=== PATIENT | male | born 1965 | race Caucasian/White ===

== ENCOUNTER 2017-06-06 08:26 | Inpatient (IN) | payer OTHER ==
[2017-06-06 09:09] VITALS: BMI 21.4
--- NOTE | 2017-06-06 09:15 | HP ---
COWS - Scale Resting Pulse: 0= [place] 80 or Below Sweatin=Flushed/Facial Moisture Restless Observation: 1= Difficult to Sit Still Pupil Size: 0= Normal to Room Light Bone or Joint Aches: 2= Severe Diffuse Aches Runny Nose/ Eye Tearin= Runny Nose/Eyes GI Upset > 30mins: 2= Nausea/Diarrhea Tremor Observation: 2= Slight Tremor Visible Yawning Observation: 1= 1-2x During Session Anxiety or Irritability: 2=Irritable/Anxious Goose Flesh Skin: 0=Smooth Skin COWS Score: 14 CIWA Score - CIWA Score Nausea/Vomitin-Mild Nausea/No Vomiting Muscle Tremors: 4-Moderate,w/Arms Extend Anxiety: 3 Agitation: 4-Moderately Restless Paroxysmal Sweats: 3 Orientation: 0-Oriented Tacttile Disturbances: 0-None Auditory Disturbances: 0-None Visual Disturbances: 0-None Headache: 0-None Present CIWA-Ar Total Score: 15 Admission ROS [facility] - HPI Chief Complaint: I was here before and i know its a good detox and need the help. Allergies/Adverse Reactions: Allergies Allergy/AdvReac Type Severity Reaction Status Date / Time No Known Allergies Allergy Verified 06/06/17 09:19 History of Present Illness: Pt is a 51yr old male with a history of alcohol and heroin dependence seeking detox for treatment. Pt states last detox was with [facility] detox in 2014. Exam Limitations: No Limitations - Ebola screening Have you traveled outside of the country in the last 21 days: No Have you had contact with anyone from an Ebola affected area: No Have you been sick,other than usual withdrawal symptoms: No Do you have a fever: No - Review of Systems Constitutional: Chills, Diaphoresis, Loss of Appetite, Night Sweats, Changes in sleep EENT: reports: Tearing Respiratory: reports: No Symptoms reported Cardiac: reports: No Symptoms Reported GI: reports: Nausea, Poor Fluid Intake : reports: No Symptoms Reported Musculoskeletal: reports: Back Pain Integumentary: reports: Flushing, Sweating Neuro: reports: Tingling, Tremors Endocrine: reports: Excessive Sweating, Flushing Hematology: reports: No Symptoms Reported Psychiatric: reports: Judgement Intact, Mood/Affect Appropiate, Orientated x3, Agitated, Anxious Other Systems: Reviewed and Negative Patient History - Patient Medical History Hx Anemia: No Hx Asthma: No Hx Chronic Obstructive Pulmonary Disease (COPD): No Hx Cancer: No Hx Cardiac Disorders: No Hx Congestive Heart Failure: No Hx Hypertension: No Hx Hypercholesterolemia: No Hx Pacemaker: No HX Cerebrovascular Accident: No Hx Seizures: No Hx Dementia: No Hx Diabetes: No Hx Gastrointestinal Disorders: No Hx Liver Disease: No Hx Genitourinary Disorders: No Hx Sexually Transmitted Disorders: No Hx Renal Disease (ESRD): No Hx Thyroid Disease: No Hx Human Immunodeficiency Virus (HIV): No (negative ) Hx Hepatitis C: No Hx Depression: Yes (anxiety,insomnia) Hx Suicide Attempt: No (denies) Hx Bipolar Disorder: No Hx Schizophrenia: No - Patient Surgical History Past Surgical History: No Hx Neurologic Surgery: No Hx Cataract Extraction: No Hx Cardiac Surgery: No Hx Lung Surgery: No Hx Breast Surgery: No Hx Breast Biopsy: No Hx Abdominal Surgery: Yes (left inguinal hernia repair age 7) Hx Appendectomy: No Hx Cholecystectomy: No Hx Genitourinary Surgery: No Hx Section: No Hx Orthopedic Surgery: No Anesthesia Reaction: No - PPD History Previous Implant?: Yes Documented Results: Negative w/o proof PPD to be Administered?: Yes - Reproductive History Patient is a Female of Child Bearing Age (11 -55 yrs old): No - Smoking Cessation Smoking history: Current every day smoker Have you smoked in the past 12 months: Yes Aproximately how many cigarettes per day: 10 Cigars Per Day: 0 Hx Chewing Tobacco Use: No Initiated information on smoking cessation: Yes 'Breaking Loose' booklet given: 06/06/17 - Substance & Tx. History Hx Alcohol Use: Yes Hx Substance Use: Yes Substance Use Type: Alcohol, Heroin Hx Substance Use Treatment: Yes ([facility] 2014) - Substances Abused Alcohol Route: Oral Frequency: Daily Amount used: one pint vodka. 5-6 beer of 6 pack, 01/18oz beer Age of first use: 18 Date of Last Use: 06/06/17 Heroin Route: Inhalation Frequency: Daily Amount used: 7 bags Age of first use: 34 Date of Last Use: 06/06/17 Cocaine Route: Smoking Frequency: 3-6 times per week Amount used: 4-5 dimes Age of first use: 23 Date of Last Use: 06/06/17 Marijuana/Hashish Route: Smoking Frequency: 1-3 times last 30 days Amount used: couple of hits Age of first use: 16 Date of Last Use: 06/04/17 Family Disease History - Family Disease History Family Disease History: Other: Father (parkinsons dx), Mother (AIDS ) Admission Physical Exam [facility] - Vital Signs Vital Signs: Vital Signs - 24 hr 06/06/17 09:06 Temperature 97.1 F L Pulse Rate 72 Respiratory 16 Rate Blood Pressure 97/61 - Physical General Appearance: Yes: Appropriately Dressed, Moderate Distress, Thin, Tremorous, Irritable, Sweating, Anxious HEENTM: Yes: Hearing grossly Normal, Nasal Congestion Respiratory: Yes: Normal Breath Sounds, Rhonchi, Wheezing Neck: Yes: No masses,lesions,Nodules Breast: Yes: Within Normal Limits Cardiology: Yes: Regular Rhythm, Regular Rate, S1, S2 Abdominal: Yes: Normal Bowel Sounds, Non Tender, Soft Genitourinary: Yes: Within Normal Limits Back: Yes: Normal Inspection Musculoskeletal: Yes: Back pain Extremities: Yes: Non-Tender, Tremors Neurological: Yes: Fully Oriented, Alert, Normal Response Integumentary: Yes: Normal Color, Diaphoresis, Other (cyst to right elbow) Lymphatic: Yes: Within Normal Limits - Diagnostic (1) Cannabis dependence Current Visit: Yes Status: Chronic (2) Nicotine dependence Current Visit: Yes Status: Chronic Qualifiers: Nicotine product type: cigarettes Substance use status: uncomplicated Qualified Code(s): F17.210 - Nicotine dependence, cigarettes, uncomplicated (3) Tinea pedis Current Visit: Yes Status: Acute Qualifiers: Laterality: bilateral Qualified Code(s): B35.3 - Tinea pedis (4) Weight decreased Current Visit: Yes Status: Acute (5) Alcohol dependence with uncomplicated withdrawal Current Visit: Yes Status: Chronic (6) Opioid dependence with withdrawal Current Visit: Yes Status: Chronic Cleared for Admission [facility] - Detox or Rehab [facility] Level of Care: Medically Managed Detox Regimen/Protocol: Methadone/Librium [facility] Breath Alcohol Content Breath Alcohol Content: 0 Urine Drug Screen - Results Drug Screen Negative: No Urine Drug Screen Results: THC-Marijuana, DANNIE-Cocaine, OPI-Opiates, BZO- Benzodiazepines, MTD-Methadone
[2017-06-06] MEDS ORDERED: diphenhydrAMINE HCL 50 MG CAPSULE PO PRN (09:45)
[2017-06-06] MEDS ORDERED: NICOTINE POLACRILEX 2 MG GUM BUC PRN (09:45)
[2017-06-06] MEDS ORDERED: MENTHOL/PHENOL 1 EACH UD MM PRN (09:45)
[2017-06-06] MEDS ORDERED: guaiFENesin/D-METHORPHAN HB 10 ML UNIT-DOSE CUPS PO PRN (09:45)
[2017-06-06] MEDS ORDERED: LOPERAMIDE HCL 2 MG CAPSULE PO PRN (09:45)
[2017-06-06] MEDS ORDERED: IBUPROFEN 400 MG TABLET (FP) PO PRN (09:45)
[2017-06-06] MEDS ORDERED: MAG HYDROX/AL HYDROX/SIMETH 30 ML UNIT-DOSE CUP PO PRN (09:45)
[2017-06-06] MEDS ORDERED: ACETAMINOPHEN 325 MG TABLET (FP) PO PRN (09:45)
[2017-06-06] MEDS ORDERED: MAGNESIUM CITRATE 300 ML BOTTLE PO PRN (09:45)
[2017-06-06] MEDS ORDERED: MAGNESIUM HYDROX 2400MG/30ML ORAL SUSPENSION 30 ML CUP PO PRN (09:45)
[2017-06-06] MEDS ORDERED: hydrOXYzine PAMOATE 50 MG CAPSULE (FP) PO PRN (09:45)
[2017-06-06] MEDS ORDERED: chlordiazePOXIDE HCL 25 MG CAPSULE PO PRN (09:45)
[2017-06-06] MEDS ORDERED: P-EPHED 60MG/TRIPROLIDI 2.5MG TABLET PO PRN (09:45)
[2017-06-06] MEDS ORDERED: ALBUTEROL SO4 2.5/IPRATROPIUM 0.5 INH SOL 3 ML VIAL.NEB. NEB PRN (09:47)
[2017-06-06] MEDS ORDERED: chlordiazePOXIDE HCL 25 MG CAPSULE PO ONE (10:18)
[2017-06-06] MEDS ORDERED: ALBUTEROL SO4 2.5/IPRATROPIUM 0.5 INH SOL 3 ML VIAL.NEB. NEB ONE (10:19)
[2017-06-06] MEDS ORDERED: METHADONE HCL 10 MG TABLET (FOR DETOX USE ONLY) PO ONE ×2 (10:20→23:00)
[2017-06-06] MEDS: NICOTINE 21 MG/24 HOURS TOPICAL PATCH TD SCH (12:47)
[2017-06-06] MEDS: PRENATAL VITAMINS W/ FOLIC ACID TABLET (FP) PO SCH (12:48)
[2017-06-06] MEDS: chlordiazePOXIDE HCL 25 MG CAPSULE PO SCH ×3 (12:49→22:11)
--- NOTE | 2017-06-06 16:20 | CONSULT ---
[facility] Psychiatric Consult - Data Date of interview: 06/06/17 Admission source: [facility] Identifying data: Readmission to [facility] for this 51 y/o male seeking detoxification treatment for heroin,alcohol,cannabis and crack (cocaine ) dependence.Patient is single without children,homeless,currrently unemployed and deprived of any means of suppport. Substance Abuse History: Patient admits to abusing heroin (7 bags/day - since age 35 - last use on 06/06/17),crack (onset of abuse at age 23 - spends 20-60 dollars/day - last use on 06/05/17),alcohol (consumes 1-2 pints of vodka daily + 2 beers/day - onset of abuse in his early 20's - last use on 06/06/17),cannabis ( since age 18 - use 2/3 times in past two weeks - last use on 06/05/17).Smokes a pack of cigarettes daily.Presents with a history of multiple detox/rehab admissions to various facilities. Medical History: Patient endorses good general health.Past history of left inguinal herniorraphy. Psychiatric History: Patient denies history of psychiatric hospitalizations.Used to be on klonopin 2 mg po bid for anxiety.Was diagnosed and followed at a community clinic until the venue " was shot down for fraud " as per patient.Has been off psychotropic medications for past 18 months (self- report).Mr Chaudhary denies history of suicide attempts. Physical/Sexual Abuse/Trauma History: Patient denies. Additional Comment: Urine Drug Screen Results: positive for marijuana,cocaine, opiates,benzodiazepines and methadone. Mental Status Exam - Mental Status Exam Alert and Oriented to: Time, Place, Person Cognitive Function: Good Patient Appearance: Unkempt, Disheveled Mood: Withdrawn, Anxious Affect: Mood Congruent Patient Behavior: Fatigued, Cooperative Speech Pattern: Clear, Appropriate Voice Loudness: Normal Thought Process: Goal Oriented Thought Disorder: Not Present Hallucinations: Denies Suicidal Ideation: Denies Homicidal Ideation: Denies Insight/Judgement: Poor Sleep: Poorly, Difficulty falling asleep (requests zolpidem) Appetite: Good Muscle strength/Tone: Normal Gait/Station: Normal Psychiatric Findings - Problem List ([place] 1, 2,3) (1) Alcohol dependence with uncomplicated withdrawal Current Visit: Yes Status: Acute (2) Cannabis dependence Current Visit: Yes Status: Acute (3) Opioid dependence with withdrawal Current Visit: Yes Status: Acute (4) Cocaine dependence Current Visit: Yes Status: Acute (5) Nicotine dependence Current Visit: Yes Status: Acute Qualifiers: Nicotine product type: cigarettes Substance use status: uncomplicated Qualified Code(s): F17.210 - Nicotine dependence, cigarettes, uncomplicated (6) Substance induced mood disorder Current Visit: Yes Status: Acute (7) Insomnia Current Visit: Yes Status: Acute - Initial Treatment Plan Initial Treatment Plan: Psychoeducation initiated in this session.Detoxification in progress.[facility] report is appreciated.Ambien 10 mg po hs.Ordered.Patient is made aware of the potential for parasomnias.He expresses his agreement to this careplan.Observation.
--- NOTE | 2017-06-06 17:16 | EKG ---
Test Reason : Blood Pressure : / mmHG Vent. Rate : 062 BPM Atrial Rate : 062 BPM P-R Int : 110 ms QRS Dur : 086 ms QT Int : 426 ms P-R-T Axes : 042 078 041 degrees QTc Int : 432 ms SINUS RHYTHM WITH SHORT FL RSR' IN V2 NONSPECIFICST-T ABNORMALITIES NO PREVIOUS ECGS AVAILABLE Confirmed by STACEY SEPULVEDA MD ([id number]) on 06/06/2017 5:16:00 PM Referred By: Confirmed By:STACEY SEPULVEDA MD
[2017-06-06] MEDS: THIAMINE HCL 100 MG TABLET (FP) PO SCH (22:11)
[2017-06-06] MEDS: ZOLPIDEM TARTRATE 10 MG TABLET (PARK CARE ONLY) PO PRN (22:12)
[2017-06-06 23:01] LABS: URINE APPEARANCE CLEAR; URINE BILIRUBIN NEGATIVE (NEGATIVE); URINE BLOOD NEGATIVE (NEGATIVE); URINE COLOR STRAW; URINE GLUCOSE (UA) NEGATIVE (NEGATIVE); URINE KETONE NEGATIVE (NEGATIVE); URINE LEUK ESTERASE NEGATIVE (NEGATIVE); URINE NITRITE NEGATIVE (NEGATIVE); URINE PROTEIN NEGATIVE (NEGATIVE); URINE UROBILINOGEN NEGATIVE E.U./dl (0.2-1.0)
[2017-06-07] MEDS: chlordiazePOXIDE HCL 25 MG CAPSULE PO SCH ×4 (05:55→22:07)
[2017-06-07] MEDS ORDERED: METHADONE HCL 10 MG TABLET (FOR DETOX USE ONLY) PO SCH (10:00)
[2017-06-07] MEDS: PRENATAL VITAMINS W/ FOLIC ACID TABLET (FP) PO SCH (10:05)
[2017-06-07] MEDS: NICOTINE 21 MG/24 HOURS TOPICAL PATCH TD SCH (10:06)
--- NOTE | 2017-06-07 11:03 | PN ---
[facility] CIWA - CIWA Score Nausea/Vomitin-Mild Nausea/No Vomiting Muscle Tremors: 4-Moderate,w/Arms Extend Anxiety: 3 Agitation: 2 Paroxysmal Sweats: 4-Forehead w/Sweat Beads Orientation: 0-Oriented Tacttile Disturbances: 0-None Auditory Disturbances: 1-Very Mild Visual Disturbances: 2-Mild Sensitivity Headache: 0-None Present CIWA-Ar Total Score: 17 S COWS - Scale Resting Pulse: 0= [place] 80 or Below Sweatin=Flushed/Facial Moisture Restless Observation: 1= Difficult to Sit Still Pupil Size: 0= Normal to Room Light Bone or Joint Aches: 1= Mild Discomfort Runny Nose/ Eye Tearin= Runny Nose/Eyes GI Upset > 30mins: 1= Stomach Cramp Tremor Observation of Outstretched Hands: 2= Slight Tremor Visible Yawning Observation: 1= 1-2x During Session Anxiety or Irritability: 2=Irritable/Anxious Goose Flesh Skin: 0=Smooth Skin COWS Score: 12 [facility] Progress Note (SOAP) Subjective: Tremors, Sweating, Hot/Cold sensations, Interrupted sleep. Objective: PT. A & 0 X 3, OBSERVED AMBULATING ON UNIT. NO ACUTE DISTRESS. 06/07/17 11:01 Vital Signs Temperature 96.7 F L 06/07/17 09:07 Pulse Rate 62 06/07/17 09:07 Respiratory Rate 18 06/07/17 09:07 Blood Pressure 118/79 06/07/17 09:07 O2 Sat by Pulse Oximetry (%) Laboratory Tests 06/06/17 16:52 Urine Color Straw Urine Appearance Clear Urine pH 6.0 Ur Specific [place] <= 1.005 Urine Protein Negative Urine Glucose (UA) Negative Urine Ketones Negative Urine Blood Negative Urine Nitrite Negative Urine Bilirubin Negative Urine Urobilinogen Negative Ur Leukocyte Esterase Negative UA RESULTS NOTED. OTHER ADMISSION LAB RESULTS PENDING. Assessment: 06/07/17 11:03 WITHDRAWAL SYMPTOMS. Plan: CONTINUE DETOX.
[2017-06-07 14:41] LABS: MCH 34.6 pg (25.7-33.7); MCHC 33.4 g/dl (32.0-35.9); MEAN CELL VOLUME 103.5 fl (80-96); MEAN PLT VOLUME 8.4 fl (7.5-11.1); PLATELET COUNT 302 K/MM3 (134-434); WHITE BLOOD COUNT 8.7 K/mm3 (4.0-10.0)
[2017-06-07 14:59] LABS: SGOT/AST 17 U/L (15-37); SGPT/ALT 14 U/L (12-78)
[2017-06-07 15:08] LABS: ALBUMIN 3.4 g/dl (3.4-5.0); ALK PHOS 73 U/L (45-117); ANION GAP 7 (8-16); BILIRUBIN,TOTAL 0.1 mg/dL (0.2-1.0); CALCIUM 9.2 mg/dL (8.5-10.1); CO2 29 mmol/L (21-32); CREATININE 0.8 mg/dL (0.7-1.3); GLUCOSE,RANDOM 71 mg/dL (74-106); TOT PROT 6.6 g/dl (6.4-8.2)
[2017-06-07] MEDS: ZOLPIDEM TARTRATE 10 MG TABLET (PARK CARE ONLY) PO PRN (22:07)
[2017-06-07] MEDS: THIAMINE HCL 100 MG TABLET (FP) PO SCH (22:07)
[2017-06-08] MEDS: chlordiazePOXIDE HCL 25 MG CAPSULE PO SCH (06:00)
[2017-06-08] MEDS: PRENATAL VITAMINS W/ FOLIC ACID TABLET (FP) PO SCH (10:20)
[2017-06-08] MEDS: chlordiazePOXIDE 5 MG CAPSULE PO SCH ×3 (10:21→22:08)
[2017-06-08] MEDS: METHADONE HCL 5 MG TABLET (FOR DETOX USE ONLY) PO SCH (10:21)
[2017-06-08] MEDS: NICOTINE 21 MG/24 HOURS TOPICAL PATCH TD SCH (10:21)
--- NOTE | 2017-06-08 11:28 | PN ---
[facility] CIWA - CIWA Score Nausea/Vomitin-Mild Nausea/No Vomiting Muscle Tremors: 4-Moderate,w/Arms Extend Anxiety: 4-Mod. Anxious/Guarded Agitation: 2 Paroxysmal Sweats: 3 Orientation: 0-Oriented Tacttile Disturbances: 2-Mild Itch/Numbness/Burn Auditory Disturbances: 0-None Visual Disturbances: 0-None Headache: 0-None Present CIWA-Ar Total Score: 16 S COWS - Scale Resting Pulse: 0= [place] 80 or Below Sweatin=Flushed/Facial Moisture Restless Observation: 1= Difficult to Sit Still Pupil Size: 0= Normal to Room Light Bone or Joint Aches: 2= Severe Diffuse Aches Runny Nose/ Eye Tearin= Nasal Congestion GI Upset > 30mins: 1= Stomach Cramp Tremor Observation of Outstretched Hands: 2= Slight Tremor Visible Yawning Observation: 1= 1-2x During Session Anxiety or Irritability: 2=Irritable/Anxious Goose Flesh Skin: 0=Smooth Skin COWS Score: 12 S Progress Note (SOAP) Subjective: Sweating, Anxious, Tremors. Objective: PT. A & O X 3, OBSERVED AMBULATING ON UNIT. NO ACUTE DISTRESS. 06/08/17 11:25 Vital Signs Temperature 96.7 F L 06/08/17 09:41 Pulse Rate 66 06/08/17 09:41 Respiratory Rate 16 06/08/17 09:41 Blood Pressure 102/72 06/08/17 09:41 O2 Sat by Pulse Oximetry (%) Laboratory Tests 06/06/17 06/07/17 06/07/17 16:52 10:45 10:45 WBC 8.7 RBC 4.00 Hgb 13.8 Hct 41.4 MCV 103.5 H MCH 34.6 H MCHC 33.4 RDW 13.0 Plt Count 302 MPV 8.4 Sodium 142 Potassium 4.3 Chloride 106 Carbon Dioxide 29 Anion Gap 7 L BUN 15 Creatinine 0.8 Creat Clearance w eGFR > 60 Random Glucose 71 L D Calcium 9.2 Total Bilirubin 0.1 L D AST 17 ALT 14 Alkaline Phosphatase 73 Total Protein 6.6 Albumin 3.4 Urine Color Straw Urine Appearance Clear Urine pH 6.0 Ur Specific [place] <= 1.005 Urine Protein Negative Urine Glucose (UA) Negative Urine Ketones Negative Urine Blood Negative Urine Nitrite Negative Urine Bilirubin Negative Urine Urobilinogen Negative Ur Leukocyte Esterase Negative RPR Titer 06/07/17 10:45 WBC RBC Hgb Hct MCV MCH MCHC RDW Plt Count MPV Sodium Potassium Chloride Carbon Dioxide Anion Gap BUN Creatinine Creat Clearance w eGFR Random Glucose Calcium Total Bilirubin AST ALT Alkaline Phosphatase Total Protein Albumin Urine Color Urine Appearance Urine pH Ur Specific [place] Urine Protein Urine Glucose (UA) Urine Ketones Urine Blood Urine Nitrite Urine Bilirubin Urine Urobilinogen Ur Leukocyte Esterase RPR Titer Nonreactive LABS NOTED. Assessment: 06/08/17 11:26 WITHDRAWAL SYMPTOMS. Plan: CONTINUE DETOX. SICKLE CELL SCREEN ORDERED.
[2017-06-08] MEDS: THIAMINE HCL 100 MG TABLET (FP) PO SCH (22:08)
[2017-06-08] MEDS: ZOLPIDEM TARTRATE 10 MG TABLET (PARK CARE ONLY) PO PRN (22:09)
[2017-06-09] MEDS: chlordiazePOXIDE 5 MG CAPSULE PO SCH (06:04)
[2017-06-09] MEDS: PRENATAL VITAMINS W/ FOLIC ACID TABLET (FP) PO SCH (10:19)
[2017-06-09] MEDS: METHADONE HCL 5 MG TABLET (FOR DETOX USE ONLY) PO SCH (10:19)
[2017-06-09] MEDS: chlordiazePOXIDE HCL 10 MG CAPSULE PO SCH ×3 (10:19→22:13)
[2017-06-09] MEDS: NICOTINE 21 MG/24 HOURS TOPICAL PATCH TD SCH (10:20)
--- NOTE | 2017-06-09 10:45 | PN ---
[facility] Progress Note (SOAP) Subjective: Tremors, Sweating, Hot / Cold Sensations, Anxious. Objective: PT. A & O X 3, OBSERVED AMBULATING ON UNIT. NO ACUTE DISTRESS. 06/09/17 10:40 Vital Signs Temperature 96.9 F L 06/09/17 10:24 Pulse Rate 65 06/09/17 10:24 Respiratory Rate 17 06/09/17 10:24 Blood Pressure 117/84 06/09/17 10:24 O2 Sat by Pulse Oximetry (%) Laboratory Tests 06/06/17 06/07/17 06/07/17 16:52 10:45 10:45 WBC 8.7 RBC 4.00 Hgb 13.8 Hct 41.4 MCV 103.5 H MCH 34.6 H MCHC 33.4 RDW 13.0 Plt Count 302 MPV 8.4 Sickle Cell Screen Sodium 142 Potassium 4.3 Chloride 106 Carbon Dioxide 29 Anion Gap 7 L BUN 15 Creatinine 0.8 Creat Clearance w eGFR > 60 Random Glucose 71 L D Calcium 9.2 Total Bilirubin 0.1 L D AST 17 ALT 14 Alkaline Phosphatase 73 Total Protein 6.6 Albumin 3.4 Urine Color Straw Urine Appearance Clear Urine pH 6.0 Ur Specific [place] <= 1.005 Urine Protein Negative Urine Glucose (UA) Negative Urine Ketones Negative Urine Blood Negative Urine Nitrite Negative Urine Bilirubin Negative Urine Urobilinogen Negative Ur Leukocyte Esterase Negative RPR Titer 06/07/17 06/08/17 10:45 12:10 WBC RBC Hgb Hct MCV MCH MCHC RDW Plt Count MPV Sickle Cell Screen Negative Sodium Potassium Chloride Carbon Dioxide Anion Gap BUN Creatinine Creat Clearance w eGFR Random Glucose Calcium Total Bilirubin AST ALT Alkaline Phosphatase Total Protein Albumin Urine Color Urine Appearance Urine pH Ur Specific [place] Urine Protein Urine Glucose (UA) Urine Ketones Urine Blood Urine Nitrite Urine Bilirubin Urine Urobilinogen Ur Leukocyte Esterase RPR Titer Nonreactive LABS NOTED. RESULT OF SICKLE CELL SCREEN NOTED. 06/09/17 10:42 06/09/17 10:45 Assessment: 06/09/17 10:42 WITHDRAWAL SYMPTOMS. Plan: CONTINUE DETOX.
[2017-06-09] MEDS: THIAMINE HCL 100 MG TABLET (FP) PO SCH (22:13)
[2017-06-09] MEDS: ZOLPIDEM TARTRATE 10 MG TABLET (PARK CARE ONLY) PO PRN (22:13)
[2017-06-10] MEDS: chlordiazePOXIDE HCL 10 MG CAPSULE PO SCH (05:43)
[2017-06-10] MEDS ORDERED: METHADONE HCL 10 MG TABLET (FOR DETOX USE ONLY) PO SCH (10:00)
[2017-06-10] MEDS: PRENATAL VITAMINS W/ FOLIC ACID TABLET (FP) PO SCH (10:39)
[2017-06-10] MEDS: NICOTINE 21 MG/24 HOURS TOPICAL PATCH TD SCH (10:39)
--- NOTE | 2017-06-10 12:24 | PN ---
[facility] Progress Note (SOAP) Subjective: Sweating, Interrupted Sleep. Objective: PT. A & O X 3, OBSERVED AMBULATING ON UNIT. NO ACUTE DISTRESS. 06/10/17 12:22 Vital Signs Temperature 95.9 F L 06/10/17 09:12 Pulse Rate 67 06/10/17 09:12 Respiratory Rate 18 06/10/17 09:12 Blood Pressure 103/64 06/10/17 09:12 O2 Sat by Pulse Oximetry (%) Laboratory Tests 06/06/17 06/07/17 06/07/17 16:52 10:45 10:45 WBC 8.7 RBC 4.00 Hgb 13.8 Hct 41.4 MCV 103.5 H MCH 34.6 H MCHC 33.4 RDW 13.0 Plt Count 302 MPV 8.4 Sickle Cell Screen Sodium 142 Potassium 4.3 Chloride 106 Carbon Dioxide 29 Anion Gap 7 L BUN 15 Creatinine 0.8 Creat Clearance w eGFR > 60 Random Glucose 71 L D Calcium 9.2 Total Bilirubin 0.1 L D AST 17 ALT 14 Alkaline Phosphatase 73 Total Protein 6.6 Albumin 3.4 Urine Color Straw Urine Appearance Clear Urine pH 6.0 Ur Specific [place] <= 1.005 Urine Protein Negative Urine Glucose (UA) Negative Urine Ketones Negative Urine Blood Negative Urine Nitrite Negative Urine Bilirubin Negative Urine Urobilinogen Negative Ur Leukocyte Esterase Negative RPR Titer 06/07/17 06/08/17 10:45 12:10 WBC RBC Hgb Hct MCV MCH MCHC RDW Plt Count MPV Sickle Cell Screen Negative Sodium Potassium Chloride Carbon Dioxide Anion Gap BUN Creatinine Creat Clearance w eGFR Random Glucose Calcium Total Bilirubin AST ALT Alkaline Phosphatase Total Protein Albumin Urine Color Urine Appearance Urine pH Ur Specific [place] Urine Protein Urine Glucose (UA) Urine Ketones Urine Blood Urine Nitrite Urine Bilirubin Urine Urobilinogen Ur Leukocyte Esterase RPR Titer Nonreactive LABS NOTED. Assessment: 06/10/17 12:22 WITHDRAWAL SYMPTOMS. Plan: CONTINUE DETOX.
[2017-06-10] MEDS: THIAMINE HCL 100 MG TABLET (FP) PO SCH (22:07)
[2017-06-10] MEDS: ZOLPIDEM TARTRATE 10 MG TABLET (PARK CARE ONLY) PO PRN (22:08)
[2017-06-11] MEDS ORDERED: METHADONE HCL 5 MG TABLET (FOR DETOX USE ONLY) PO SCH (06:00)
[2017-06-11 06:26] VITALS: BP 98/59; PULSE 56; TEMP 96.8
--- NOTE | 2017-06-11 14:19 | DS ---
[facility] Detox Discharge Summary Admission Date: 06/06/17 Discharge Date: 06/11/17 - History Present History: Alcohol Dependence, Cocaine Dependence, Opioid Dependence Pertinent Past History: Denies - Physical Exam Results Vital Signs: Vital Signs Temperature 96.8 F L 06/11/17 06:25 Pulse Rate 56 L 06/11/17 06:25 Respiratory Rate 18 06/11/17 06:25 Blood Pressure 98/59 06/11/17 06:25 O2 Sat by Pulse Oximetry (%) Pertinent Admission Physical Exam Findings: Laboratory Tests 06/06/17 06/07/17 06/07/17 16:52 10:45 10:45 WBC 8.7 RBC 4.00 Hgb 13.8 Hct 41.4 MCV 103.5 H MCH 34.6 H MCHC 33.4 RDW 13.0 Plt Count 302 MPV 8.4 Sickle Cell Screen Sodium 142 Potassium 4.3 Chloride 106 Carbon Dioxide 29 Anion Gap 7 L BUN 15 Creatinine 0.8 Creat Clearance w eGFR > 60 Random Glucose 71 L D Calcium 9.2 Total Bilirubin 0.1 L D AST 17 ALT 14 Alkaline Phosphatase 73 Total Protein 6.6 Albumin 3.4 Urine Color Straw Urine Appearance Clear Urine pH 6.0 Ur Specific [place] <= 1.005 Urine Protein Negative Urine Glucose (UA) Negative Urine Ketones Negative Urine Blood Negative Urine Nitrite Negative Urine Bilirubin Negative Urine Urobilinogen Negative Ur Leukocyte Esterase Negative RPR Titer 06/07/17 06/08/17 10:45 12:10 WBC RBC Hgb Hct MCV MCH MCHC RDW Plt Count MPV Sickle Cell Screen Negative Sodium Potassium Chloride Carbon Dioxide Anion Gap BUN Creatinine Creat Clearance w eGFR Random Glucose Calcium Total Bilirubin AST ALT Alkaline Phosphatase Total Protein Albumin Urine Color Urine Appearance Urine pH Ur Specific [place] Urine Protein Urine Glucose (UA) Urine Ketones Urine Blood Urine Nitrite Urine Bilirubin Urine Urobilinogen Ur Leukocyte Esterase RPR Titer Nonreactive Labs noted - Treatment Hospital Course: Detox Protocol Followed, Detoxed Safely, Responded well, Discharged Condition Good - Medication Discharge Medications: Ambulatory Orders NK [No Known Home Medication] 06/06/17 - Diagnosis (1) Alcohol dependence with uncomplicated withdrawal Status: Acute (2) Anxiety and depression Status: Chronic (3) Cocaine dependence Status: Chronic (4) Insomnia Status: Chronic (5) Nicotine dependence Status: Chronic Qualifiers: Nicotine product type: cigarettes Substance use status: uncomplicated Qualified Code(s): F17.210 - Nicotine dependence, cigarettes, uncomplicated (6) Opioid dependence with withdrawal Status: Acute - AMA Did Patient Leave Against Medical Advice: No
== END 2017-06-11 09:20 | disposition home or self-care (01) | DRG 773 ==
LOC: YASAS 08:26 → Y3N 10:13
PROVIDERS: ADMIT Internal Medicine; ATTEND Internal Medicine
PROC: HZ2ZZZZ Detoxification Services for Substance Abuse Treatment (ICD-10-PCS; principal; 2017-06-11)
DX: F11.23 Opioid dependence with withdrawal (principal); F14.20 Cocaine dependence, uncomplicated; F12.20 Cannabis dependence, uncomplicated; F17.210 Nicotine dependence, cigarettes, uncomplicated; F19.24 Other psychoactive substance dependence with psychoactive substance-induced mood disorder; G47.00 Insomnia, unspecified; B35.3 Tinea pedis
CPT/HCPCS: 36415; 71020-TC; 80053; 81003; 85027; 85660; 86593; 93005; 93010; 94640

== ENCOUNTER 2017-07-10 08:43 | Inpatient (IN) | payer OTHER ==
[2017-07-10 09:16] VITALS: BMI 21.6
--- NOTE | 2017-07-10 12:16 | HP ---
COWS - Scale Resting Pulse: 0= [place] 80 or Below Sweatin= Chills/Flushing Restless Observation: 3= Extraneous Movement Pupil Size: 2= Moderately Dilated Bone or Joint Aches: 4=Acute Joint/Muscle Pain Runny Nose/ Eye Tearin= Nasal Congestion GI Upset > 30mins: 1= Stomach Cramp Tremor Observation: 1= Tremor [place], Not Seen Yawning Observation: 1= 1-2x During Session Anxiety or Irritability: 2=Irritable/Anxious Goose Flesh Skin: 0=Smooth Skin COWS Score: 16 CIWA Score - CIWA Score Nausea/Vomitin-No Nausea/No Vomiting Muscle Tremors: 5 Anxiety: 5 Agitation: 4-Moderately Restless Paroxysmal Sweats: 1-Minimal Palms Moist Orientation: 0-Oriented Tacttile Disturbances: 3-Moderate Itch/Numb/Burn Auditory Disturbances: 0-None Visual Disturbances: 0-None Headache: 0-None Present CIWA-Ar Total Score: 18 Admission ROS BHS - HPI Chief Complaint: DETOX TX FOR HEROIN AND ALCOHOL DEPENDENCE Allergies/Adverse Reactions: Allergies Allergy/AdvReac Type Severity Reaction Status Date / Time No Known Allergies Allergy Verified 07/10/17 11:34 History of Present Illness: 51 Y/O H/M WITH A HX OF HEROIN/COCAINE AND ALCOHOL DEPENDENCE SEEKING DETOX TX Exam Limitations: No Limitations - Ebola screening Have you had contact with anyone from an Ebola affected area: No Have you been sick,other than usual withdrawal symptoms: No Do you have a fever: No - Review of Systems Constitutional: Chills, Loss of Appetite, Night Sweats, Changes in sleep, Unintentional Wgt. Loss EENT: reports: Blurred Vision (USES READING GLASSES), Tearing, Nose Congestion, Dental Problems (MISSING TEETH) Respiratory: reports: No Symptoms reported Cardiac: reports: Lightheadedness GI: reports: Constipated, Diarrhea, Nausea, Poor Appetite, Poor Fluid Intake, Vomiting, Abdominal cramping : reports: Frequency Musculoskeletal: reports: Back Pain, Joint Pain, Muscle Pain Integumentary: reports: No Symptoms Reported Neuro: reports: Headache, Tremors Endocrine: reports: No Symptoms Reported Hematology: reports: No Symptoms Reported Psychiatric: reports: Orientated x3, Anxious, Depressed (ONCE IN A WHILE BUT NO PSYCH HX) Other Systems: Reviewed and Negative Patient History - Patient Medical History Hx Anemia: No Hx Asthma: No Hx Chronic Obstructive Pulmonary Disease (COPD): No Hx Cancer: No Hx Cardiac Disorders: No Hx Congestive Heart Failure: No Hx Hypertension: No Hx Hypercholesterolemia: No Hx Pacemaker: No HX Cerebrovascular Accident: No Hx Seizures: No Hx Dementia: No Hx Diabetes: No Hx Gastrointestinal Disorders: No Hx Liver Disease: No Hx Genitourinary Disorders: No Hx Sexually Transmitted Disorders: No (DENIES) Hx Renal Disease (ESRD): No Hx Thyroid Disease: No Hx Human Immunodeficiency Virus (HIV): No (NEGATIVE HX) Hx Hepatitis C: No Hx Depression: Yes (ON/OFF DUE TO LIFE ISSUES BUT DECLINES EVALUATION. ) Hx Suicide Attempt: No (DENIES) Hx Bipolar Disorder: No Hx Schizophrenia: No - Patient Surgical History Past Surgical History: Yes Hx Neurologic Surgery: No Hx Cataract Extraction: No Hx Cardiac Surgery: No Hx Lung Surgery: No Hx Breast Surgery: No Hx Breast Biopsy: No Hx Abdominal Surgery: Yes (left inguinal hernia repair age 7) Hx Appendectomy: No Hx Cholecystectomy: No Hx Genitourinary Surgery: No Hx Section: No Hx Orthopedic Surgery: No Other Surgical History: left inguinal hernia repair Anesthesia Reaction: No - PPD History Previous Implant?: Yes Documented Results: Negative w/proof Implanted On Prior R Admission?: Yes Date: 06/08/17 Results: 0 MM PPD to be Administered?: No - Reproductive History Patient is a Female of Child Bearing Age (11 -55 yrs old): No Patient : (N/A) - Smoking Cessation Smoking history: Current every day smoker Have you smoked in the past 12 months: Yes Aproximately how many cigarettes per day: 10 Cigars Per Day: 0 Hx Chewing Tobacco Use: No Initiated information on smoking cessation: Yes 'Breaking Loose' booklet given: 07/10/17 - Substance & Tx. History Hx Alcohol Use: Yes (VODKA/BEER) Hx Substance Use: Yes (HEROIN/COCAINE/PCP ON/OFF) Substance Use Type: Alcohol, Cocaine, Heroin Hx Substance Use Treatment: Yes (LAST TX AT [facility]-DETOX) - Substances Abused Heroin Route: Inhalation Frequency: Daily Amount used: 6-7 bags Age of first use: 34 Date of Last Use: 07/10/17 Crack Route: Smoking Frequency: Daily Amount used: $20-30 Age of first use: 25 Date of Last Use: 07/09/17 Alcohol Route: Oral Frequency: Daily Amount used: 1/2 pint vodka/ 4 beers Age of first use: 16 Date of Last Use: 07/10/17 PCP Route: Smoking Frequency: 1-3 times last 30 days Amount used: 3-4 hits off a joint Age of first use: 19 Date of Last Use: 07/07/17 Family Disease History - Family Disease History Family Disease History: Other: Father (parkinsons dx), Mother (AIDS ) Admission Physical Exam [facility] - Vital Signs Vital Signs: Vital Signs - 24 hr 07/10/17 09:13 Temperature 97.8 F Pulse Rate 73 Respiratory 20 Rate Blood Pressure 131/77 - Physical General Appearance: Yes: Moderate Distress, Irritable, Anxious HEENTM: Yes: EOMI, Normocephalic, LIVIER, Pharynx Normal Respiratory: Yes: Chest Non-Tender, Lungs Clear, Normal Breath Sounds, No Respiratory Distress Neck: Yes: No masses,lesions,Nodules, Supple, Trachea in good position Breast: Yes: Breast Exam Deferred Cardiology: Yes: Regular Rhythm, Regular Rate, S1, S2 Abdominal: Yes: Normal Bowel Sounds, Non Tender, Soft Genitourinary: Yes: Other (N/C) Back: Yes: Within Normal Limits Musculoskeletal: Yes: full range of Motion, Gait Steady Extremities: Yes: Normal Range of Motion, Non-Tender, Tremors Neurological: Yes: art gallery internship II-XII NML intact, Fully Oriented, Alert Integumentary: Yes: Dry, Warm Lymphatic: Yes: Within Normal Limits - Diagnostic (1) Alcohol dependence with uncomplicated withdrawal Current Visit: Yes Status: Acute (2) Opioid dependence with withdrawal Current Visit: Yes Status: Acute (3) Weight decreased Current Visit: Yes Status: Chronic (4) Cocaine dependence Current Visit: Yes Status: Acute Qualifiers: Substance use status: uncomplicated Qualified Code(s): F14.20 - Cocaine dependence, uncomplicated (5) Nicotine dependence Current Visit: Yes Status: Acute Qualifiers: Nicotine product type: cigarettes Substance use status: in withdrawal Qualified Code(s): F17.213 - Nicotine dependence, cigarettes, with withdrawal Cleared for Admission [facility] - Detox or Rehab [facility] Level of Care: Medically Managed Detox Regimen/Protocol: Methadone/Librium S Breath Alcohol Content Breath Alcohol Content: 0.035 Urine Drug Screen - Results Drug Screen Negative: No Urine Drug Screen Results: DANNIE-Cocaine, OPI-Opiates, PCP-Phencyclidine, BZO- Benzodiazepines
[2017-07-10] MEDS ORDERED: LOPERAMIDE HCL 2 MG CAPSULE PO PRN (12:26)
[2017-07-10] MEDS ORDERED: MAG HYDROX/AL HYDROX/SIMETH 30 ML UNIT-DOSE CUP PO PRN (12:26)
[2017-07-10] MEDS ORDERED: hydrOXYzine PAMOATE 25 MG CAPSULE (FP) PO PRN (12:26)
[2017-07-10] MEDS ORDERED: MAGNESIUM CITRATE 300 ML BOTTLE PO PRN (12:26)
[2017-07-10] MEDS ORDERED: NICOTINE POLACRILEX 2 MG GUM BUC PRN (12:26)
[2017-07-10] MEDS ORDERED: MENTHOL/PHENOL 1 EACH UD MM PRN (12:26)
[2017-07-10] MEDS ORDERED: P-EPHED 60MG/TRIPROLIDI 2.5MG TABLET PO PRN (12:26)
[2017-07-10] MEDS ORDERED: IBUPROFEN 400 MG TABLET (FP) PO PRN (12:26)
[2017-07-10] MEDS ORDERED: diphenhydrAMINE HCL 50 MG CAPSULE PO PRN (12:26)
[2017-07-10] MEDS ORDERED: ACETAMINOPHEN 325 MG TABLET (FP) PO PRN (12:26)
[2017-07-10] MEDS ORDERED: guaiFENesin/D-METHORPHAN HB 10 ML UNIT-DOSE CUPS PO PRN (12:26)
[2017-07-10] MEDS ORDERED: chlordiazePOXIDE HCL 25 MG CAPSULE PO PRN (12:26)
[2017-07-10] MEDS ORDERED: MAGNESIUM HYDROX 2400MG/30ML ORAL SUSPENSION 30 ML CUP PO PRN (12:26)
[2017-07-10] MEDS ORDERED: chlordiazePOXIDE HCL 25 MG CAPSULE PO ONE (12:51)
[2017-07-10] MEDS ORDERED: METHADONE HCL 10 MG TABLET (FOR DETOX USE ONLY) PO ONE ×2 (12:52→23:00)
[2017-07-10] MEDS: NICOTINE 14 MG/24 HOURS TOPICAL PATCH TD SCH (13:45)
[2017-07-10 16:22] LABS: MCH 34.2 pg (25.7-33.7); MCHC 33.6 g/dl (32.0-35.9); MEAN CELL VOLUME 101.6 fl (80-96); MEAN PLT VOLUME 8.2 fl (7.5-11.1); PLATELET COUNT 311 K/MM3 (134-434); RDW 14.1 % (11.9-15.9); WHITE BLOOD COUNT 8.4 K/mm3 (4.0-10.0)
[2017-07-10] MEDS: chlordiazePOXIDE HCL 25 MG CAPSULE PO SCH ×2 (17:46→22:55)
[2017-07-10 17:48] LABS: ALBUMIN 3.9 g/dl (3.4-5.0); ALK PHOS 80 U/L (45-117); ANION GAP 9 (8-16); BILIRUBIN,TOTAL 0.5 mg/dL (0.2-1.0); CO2 31 mmol/L (21-32); CREATININE 1.1 mg/dL (0.7-1.3); GLUCOSE,RANDOM 96 mg/dL (74-106); SGOT/AST 22 U/L (15-37); SGPT/ALT 18 U/L (12-78); TOT PROT 7.3 g/dl (6.4-8.2)
[2017-07-10 21:17] LABS: URINE APPEARANCE CLEAR; URINE BILIRUBIN NEGATIVE (NEGATIVE); URINE BLOOD NEGATIVE (NEGATIVE); URINE COLOR STRAW; URINE GLUCOSE (UA) NEGATIVE (NEGATIVE); URINE KETONE NEGATIVE (NEGATIVE); URINE LEUK ESTERASE NEGATIVE (NEGATIVE); URINE NITRITE NEGATIVE (NEGATIVE); URINE PROTEIN NEGATIVE (NEGATIVE); URINE UROBILINOGEN NEGATIVE mg/dL (0.2-1.0)
[2017-07-10] MEDS: THIAMINE HCL 100 MG TABLET (FP) PO SCH (22:55)
[2017-07-11] MEDS: chlordiazePOXIDE HCL 25 MG CAPSULE PO SCH ×4 (05:35→22:07)
[2017-07-11] MEDS ORDERED: METHADONE HCL 10 MG TABLET (FOR DETOX USE ONLY) PO SCH (10:00)
--- NOTE | 2017-07-11 10:24 | PN ---
S CIWA - CIWA Score Nausea/Vomitin Muscle Tremors: 3 Anxiety: 3 Agitation: 3 Paroxysmal Sweats: 1-Minimal Palms Moist Orientation: 0-Oriented Tacttile Disturbances: 1-Very Mild Itch/Numbness Auditory Disturbances: 1-Very Mild Visual Disturbances: 1-Very Mild Sensitivity Headache: 2-Mild CIWA-Ar Total Score: 18 BHS COWS - Scale Resting Pulse: 0= [place] 80 or Below Sweatin= Chills/Flushing Restless Observation: 3= Extraneous Movement Pupil Size: 1= Pupils >than Normal Bone or Joint Aches: 2= Severe Diffuse Aches Runny Nose/ Eye Tearin= Nasal Congestion GI Upset > 30mins: 2= Nausea/Diarrhea Tremor Observation of Outstretched Hands: 2= Slight Tremor Visible Yawning Observation: 1= 1-2x During Session Anxiety or Irritability: 2=Irritable/Anxious Goose Flesh Skin: 0=Smooth Skin COWS Score: 15 BHS Progress Note (SOAP) Subjective: ALERT,IRRITABLE,ANXIOUS,INTERRUPTED SLEEP,TREMOR,PAIN IN THE BODY AND BACK Objective: 07/11/17 10:23 Vital Signs Temperature 96.4 F L 07/11/17 10:00 Pulse Rate 66 07/11/17 10:00 Respiratory Rate 16 07/11/17 10:00 Blood Pressure 121/82 07/11/17 10:00 O2 Sat by Pulse Oximetry (%) Laboratory Last Values WBC 8.4 K/mm3 (4.0-10.0) 07/10/17 13:00 RBC 3.97 M/mm3 (4.00-5.60) L 07/10/17 13:00 Hgb 13.6 GM/dL (11.7-16.9) 07/10/17 13:00 Hct 40.3 % (35.4-49) 07/10/17 13:00 MCV 101.6 fl (80-96) H 07/10/17 13:00 MCH 34.2 pg (25.7-33.7) H 07/10/17 13:00 MCHC 33.6 g/dl (32.0-35.9) 07/10/17 13:00 RDW 14.1 % (11.9-15.9) 07/10/17 13:00 Plt Count 311 K/MM3 (134-434) 07/10/17 13:00 MPV 8.2 fl (7.5-11.1) 07/10/17 13:00 Sodium 138 mmol/L (136-145) 07/10/17 13:00 Potassium 4.5 mmol/L (3.5-5.1) 07/10/17 13:00 Chloride 98 mmol/L (98-107) 07/10/17 13:00 Carbon Dioxide 31 mmol/L (21-32) 07/10/17 13:00 Anion Gap 9 (8-16) 07/10/17 13:00 BUN 11 mg/dL (7-18) D 07/10/17 13:00 Creatinine 1.1 mg/dL (0.7-1.3) D 07/10/17 13:00 Creat Clearance w eGFR > 60 (>60) 07/10/17 13:00 Random Glucose 96 mg/dL (74-106) D 07/10/17 13:00 Calcium 9.0 mg/dL (8.5-10.1) 07/10/17 13:00 Total Bilirubin 0.5 mg/dL (0.2-1.0) D 07/10/17 13:00 AST 22 U/L (15-37) D 07/10/17 13:00 ALT 18 U/L (12-78) D 07/10/17 13:00 Alkaline Phosphatase 80 U/L (45-117) 07/10/17 13:00 Total Protein 7.3 g/dl (6.4-8.2) 07/10/17 13:00 Albumin 3.9 g/dl (3.4-5.0) 07/10/17 13:00 Urine Color Straw 07/10/17 20:59 Urine Appearance Clear 07/10/17 20:59 Urine pH 6.0 (5.0-8.0) 07/10/17 20:59 Urine Protein Negative (NEGATIVE) 07/10/17 20:59 Urine Glucose (UA) Negative (NEGATIVE) 07/10/17 20:59 Urine Ketones Negative (NEGATIVE) 07/10/17 20:59 Urine Blood Negative (NEGATIVE) 07/10/17 20:59 Urine Nitrite Negative (NEGATIVE) 07/10/17 20:59 Urine Bilirubin Negative (NEGATIVE) 07/10/17 20:59 Urine Urobilinogen Negative mg/dL (0.2-1.0) 07/10/17 20:59 Ur Leukocyte Esterase Negative (NEGATIVE) 07/10/17 20:59 RPR Titer Nonreactive (NONREACTIVE) 07/10/17 13:00 Assessment: 07/11/17 10:23 WITHDRAWAL SYMPTOM Plan: CONTINUE DETOX
[2017-07-11] MEDS: PRENATAL VITAMINS W/ FOLIC ACID TABLET (FP) PO SCH (10:44)
[2017-07-11] MEDS: NICOTINE 14 MG/24 HOURS TOPICAL PATCH TD SCH (10:45)
--- NOTE | 2017-07-11 16:36 | CONSULT ---
[facility] Psychiatric Consult - Data Date of interview: 07/11/17 Admission source: [facility] Identifying data: Another admission to [facility] for this 51 y/o male seeking detoxification treatment for heroin,alcohol,phencyclidine,cannabis and crack (cocaine) dependence.Patient is single without children,homeless, currrently unemployed and supported on food stamps. Substance Abuse History: Discussed with patient in this interview.Mr Chaudhary confirms this report. Smoking Cessation. Smoking history: Current every day smoker. Have you smoked in the past 12 months: Yes. Aproximately how many cigarettes per day: 10. Cigars Per Day: 0. Hx Chewing Tobacco Use: No. Initiated information on smoking cessation: Yes. 'Breaking Loose' booklet given : 07/10/17. - Substance & Tx. History. Hx Alcohol Use: Yes (VODKA/BEER). Hx Substance Use: Yes (HEROIN/COCAINE/PCP ON/OFF). Substance Use Type: Alcohol, Cocaine, Heroin. Hx Substance Use Treatment: Yes (LAST TX AT [facility]-DETOX). - Substances Abused. Heroin. Route: Inhalation. Frequency: Daily. Amount used: 6-7 bags. Age of first use: 34. Date of Last Use: 07/10/17. Crack. Route: Smoking. Frequency: Daily. Amount used: $20-30. Age of first use: 25. Date of Last Use: 07/09/17. Alcohol. Route: Oral. Frequency: Daily. Amount used: 1/2 pint vodka/ 4 beers. Age of first use: 16. Date of Last Use: 07/10/17. PCP. Route: Smoking. Frequency: 1-3 times last 30 days. Amount used: 3-4 hits off a joint. Age of first use: 19. Date of Last Use: 07/07/17 Medical History: No reported history of medical problems.Antecedent of left inguinal herniorraphy. Psychiatric History: No history of psychiatric hospitalizations.Brief follow up at [facility] (now def[facility]) where he was prescribed generous doses of clonazepam.Mr Chaudhary endorses the diagnoses of MDD and Anxiety Disorder.Has been off psychotropic medications for several months ( since the closing of his former [facility] clinic by the authorities).Mr Chaudhary denies history of suicide attempts. Physical/Sexual Abuse/Trauma History: Patient denies. Additional Comment: Urine Drug Screen Results: DANNIE-Cocaine, OPI-Opiates, PCP- Phencyclidine, BZO-Benzodiazepines.Noted. Mental Status Exam - Mental Status Exam Alert and Oriented to: Time, Place, Person Cognitive Function: Good Patient Appearance: Well Groomed Mood: Nervous, Anxious Affect: Mood Congruent, Constricted Patient Behavior: Fatigued, Appropriate, Cooperative Speech Pattern: Clear Voice Loudness: Normal Thought Process: Goal Oriented Thought Disorder: Not Present Hallucinations: Denies Suicidal Ideation: Denies Homicidal Ideation: Denies Insight/Judgement: Poor Sleep: Well Appetite: Good Muscle strength/Tone: Normal Gait/Station: Normal Psychiatric Findings - Problem List ([place] 1, 2,3) (1) Alcohol dependence with uncomplicated withdrawal Current Visit: Yes Status: Acute (2) Cocaine dependence Current Visit: Yes Status: Acute Qualifiers: Substance use status: uncomplicated Qualified Code(s): F14.20 - Cocaine dependence, uncomplicated (3) Opioid dependence with withdrawal Current Visit: Yes Status: Acute (4) Nicotine dependence Current Visit: Yes Status: Acute Qualifiers: Nicotine product type: cigarettes Substance use status: in withdrawal Qualified Code(s): F17.213 - Nicotine dependence, cigarettes, with withdrawal (5) Substance induced mood disorder Current Visit: Yes Status: Acute (6) Insomnia Current Visit: Yes Status: Acute - Initial Treatment Plan Initial Treatment Plan: Psychoeducation.Detoxification in progress.Benefits of sleep hygiene : discussed with the patient.Ambien 10 mg po hs prn is ordered.Patient is made aware of the potential for parasomnias.Mr Chaudhary agrees with this careplan.Observation.
[2017-07-11] MEDS: ZOLPIDEM TARTRATE 10 MG TABLET (PARK CARE ONLY) PO PRN (22:07)
[2017-07-11] MEDS: THIAMINE HCL 100 MG TABLET (FP) PO SCH (22:07)
[2017-07-12] MEDS: chlordiazePOXIDE HCL 25 MG CAPSULE PO SCH ×2 (05:36→10:18)
[2017-07-12] MEDS: NICOTINE 14 MG/24 HOURS TOPICAL PATCH TD SCH (10:18)
[2017-07-12] MEDS: PRENATAL VITAMINS W/ FOLIC ACID TABLET (FP) PO SCH (10:18)
[2017-07-12] MEDS: METHADONE HCL 5 MG TABLET (FOR DETOX USE ONLY) PO SCH (10:18)
--- NOTE | 2017-07-12 10:18 | PN ---
[facility] CIWA - CIWA Score Nausea/Vomitin Muscle Tremors: 3 Anxiety: 3 Agitation: 2 Paroxysmal Sweats: 1-Minimal Palms Moist Orientation: 0-Oriented Tacttile Disturbances: 1-Very Mild Itch/Numbness Auditory Disturbances: 1-Very Mild Visual Disturbances: 1-Very Mild Sensitivity Headache: 2-Mild CIWA-Ar Total Score: 17 BHS COWS - Scale Resting Pulse: 0= [place] 80 or Below Sweatin= Chills/Flushing Restless Observation: 3= Extraneous Movement Pupil Size: 1= Pupils >than Normal Bone or Joint Aches: 2= Severe Diffuse Aches Runny Nose/ Eye Tearin= Runny Nose/Eyes GI Upset > 30mins: 2= Nausea/Diarrhea Tremor Observation of Outstretched Hands: 2= Slight Tremor Visible Yawning Observation: 1= 1-2x During Session Anxiety or Irritability: 2=Irritable/Anxious Goose Flesh Skin: 0=Smooth Skin COWS Score: 16 S Progress Note (SOAP) Subjective: ALERT,IRRITABLE,ANXIOUS,INTERRUPTED SLEEP,TREMOR,PAIN IN THE BODY Objective: 07/12/17 10:17 Vital Signs Temperature 96.9 F L 07/12/17 06:14 Pulse Rate 64 07/12/17 06:14 Respiratory Rate 16 07/12/17 06:14 Blood Pressure 101/58 07/12/17 06:14 O2 Sat by Pulse Oximetry (%) Assessment: 07/12/17 10:18 WITHDRAWAL SYMPTOM Plan: CONTINUE DETOX
[2017-07-12] MEDS: chlordiazePOXIDE 5 MG CAPSULE PO SCH ×2 (17:36→22:15)
--- NOTE | 2017-07-12 20:03 | EKG ---
Test Reason : Blood Pressure : / mmHG Vent. Rate : 054 BPM Atrial Rate : 054 BPM P-R Int : 106 ms QRS Dur : 086 ms QT Int : 402 ms P-R-T Axes : 057 081 060 degrees QTc Int : 381 ms SINUS BRADYCARDIA WITH SHORT GA OTHERWISE NORMAL ECG WHEN COMPARED WITH ECG OF 06-JUN-2017 11:58, QT HAS SHORTENED Confirmed by STACEY SEPULVEDA MD ([id number]) on 07/12/2017 8:02:54 PM Referred By: Confirmed By:STACEY SEPULVEDA MD
[2017-07-12] MEDS: THIAMINE HCL 100 MG TABLET (FP) PO SCH (22:15)
[2017-07-12] MEDS: ZOLPIDEM TARTRATE 10 MG TABLET (PARK CARE ONLY) PO PRN (22:15)
[2017-07-13] MEDS: chlordiazePOXIDE 5 MG CAPSULE PO SCH ×2 (06:48→11:05)
[2017-07-13] MEDS: PRENATAL VITAMINS W/ FOLIC ACID TABLET (FP) PO SCH (11:04)
[2017-07-13] MEDS: NICOTINE 14 MG/24 HOURS TOPICAL PATCH TD SCH (11:04)
[2017-07-13] MEDS: METHADONE HCL 5 MG TABLET (FOR DETOX USE ONLY) PO SCH (11:04)
--- NOTE | 2017-07-13 11:58 | PN ---
BHS Progress Note (SOAP) Subjective: ALERT,IRRITABLE,ANXIOUS,INTERRUPTED SLEEP,PAIN IN THE BODY Objective: 07/13/17 11:57 Vital Signs Temperature 96.3 F L 07/13/17 10:20 Pulse Rate 73 07/13/17 10:20 Respiratory Rate 18 07/13/17 10:20 Blood Pressure 111/67 07/13/17 10:20 O2 Sat by Pulse Oximetry (%) Assessment: 07/13/17 11:58 WITHDRAWAL SYMPTOM Plan: CONTINUE DETOX
[2017-07-13] MEDS: chlordiazePOXIDE HCL 10 MG CAPSULE PO SCH ×2 (17:45→22:18)
[2017-07-13] MEDS: THIAMINE HCL 100 MG TABLET (FP) PO SCH (22:18)
[2017-07-13] MEDS: ZOLPIDEM TARTRATE 10 MG TABLET (PARK CARE ONLY) PO PRN (22:18)
[2017-07-14] MEDS: chlordiazePOXIDE HCL 10 MG CAPSULE PO SCH ×2 (05:27→10:03)
[2017-07-14] MEDS ORDERED: METHADONE HCL 10 MG TABLET (FOR DETOX USE ONLY) PO SCH (10:00)
[2017-07-14] MEDS: PRENATAL VITAMINS W/ FOLIC ACID TABLET (FP) PO SCH (10:03)
[2017-07-14] MEDS: NICOTINE 14 MG/24 HOURS TOPICAL PATCH TD SCH (10:03)
--- NOTE | 2017-07-14 10:41 | PN ---
S Progress Note (SOAP) Subjective: ALERT,IRRITABLE,INTERRUPTED SLEEP Objective: 07/14/17 10:40 Vital Signs Temperature 97.3 F L 07/14/17 10:00 Pulse Rate 64 07/14/17 10:00 Respiratory Rate 18 07/14/17 10:00 Blood Pressure 106/64 07/14/17 10:00 O2 Sat by Pulse Oximetry (%) Assessment: 07/14/17 10:40 WITHDRAWAL SYMPTOM Plan: CONTINUE DETOX,DISCHARGE IN AM
[2017-07-14] MEDS: ZOLPIDEM TARTRATE 10 MG TABLET (PARK CARE ONLY) PO PRN (21:41)
[2017-07-14] MEDS: THIAMINE HCL 100 MG TABLET (FP) PO SCH (21:41)
[2017-07-15] MEDS ORDERED: METHADONE HCL 5 MG TABLET (FOR DETOX USE ONLY) PO SCH (06:00)
[2017-07-15 06:48] VITALS: BP 108/71; PULSE 67; TEMP 97.3
== END 2017-07-15 06:33 | disposition home or self-care (01) | DRG 773 ==
LOC: YASAS 08:43 → Y6N 12:08
PROVIDERS: ADMIT Internal Medicine; ATTEND Internal Medicine
PROC: HZ2ZZZZ Detoxification Services for Substance Abuse Treatment (ICD-10-PCS; principal; 2017-07-10)
DX: F11.23 Opioid dependence with withdrawal (principal); F10.230 Alcohol dependence with withdrawal, uncomplicated; F14.20 Cocaine dependence, uncomplicated; F12.20 Cannabis dependence, uncomplicated; F17.213 Nicotine dependence, cigarettes, with withdrawal; F19.24 Other psychoactive substance dependence with psychoactive substance-induced mood disorder; G47.00 Insomnia, unspecified; Z87.898 Personal history of other specified conditions
CPT/HCPCS: 36415; 80053; 81003; 85027; 86593; 93005; 93010

== ENCOUNTER 2017-08-15 13:13 | Inpatient (IN) | payer OTHER ==
[2017-08-15 14:56] VITALS: BMI 22.6
[2017-08-15] MEDS ORDERED: ACETAMINOPHEN 325 MG TABLET (FP) PO PRN (16:01)
[2017-08-15] MEDS ORDERED: LOPERAMIDE HCL 2 MG CAPSULE PO PRN (16:01)
[2017-08-15] MEDS ORDERED: hydrOXYzine PAMOATE 50 MG CAPSULE (FP) PO PRN (16:01)
[2017-08-15] MEDS ORDERED: P-EPHED 60MG/TRIPROLIDI 2.5MG TABLET PO PRN (16:01)
[2017-08-15] MEDS ORDERED: MAG HYDROX/AL HYDROX/SIMETH 30 ML UNIT-DOSE CUP PO PRN (16:01)
[2017-08-15] MEDS ORDERED: IBUPROFEN 400 MG TABLET (FP) PO PRN (16:01)
[2017-08-15] MEDS ORDERED: NICOTINE POLACRILEX 4 MG GUM BC PRN (16:01)
[2017-08-15] MEDS ORDERED: diazePAM 5 MG TABLET PO PRN (16:01)
[2017-08-15] MEDS ORDERED: MENTHOL/PHENOL 1 EACH UD MM PRN (16:01)
[2017-08-15] MEDS ORDERED: MAGNESIUM HYDROX 2400MG/30ML ORAL SUSPENSION 30 ML CUP PO PRN (16:01)
[2017-08-15] MEDS ORDERED: MAGNESIUM CITRATE 300 ML BOTTLE PO PRN (16:01)
--- NOTE | 2017-08-15 16:01 | HP ---
COWS - Scale Resting Pulse: 1= [place] 81-100 Sweatin= Chills/Flushing Restless Observation: 1= Difficult to Sit Still Pupil Size: 1= Pupils >than Normal Bone or Joint Aches: 1= Mild Discomfort Runny Nose/ Eye Tearin= Nasal Congestion GI Upset > 30mins: 2= Nausea/Diarrhea Tremor Observation: 2= Slight Tremor Visible Yawning Observation: 1= 1-2x During Session Anxiety or Irritability: 2=Irritable/Anxious Goose Flesh Skin: 3=Piloerection COWS Score: 16 CIWA Score - CIWA Score Nausea/Vomitin Muscle Tremors: 4-Moderate,w/Arms Extend Anxiety: 4-Mod. Anxious/Guarded Agitation: 4-Moderately Restless Paroxysmal Sweats: 3 Orientation: 0-Oriented Tacttile Disturbances: 0-None Auditory Disturbances: 0-None Visual Disturbances: 0-None Headache: 0-None Present CIWA-Ar Total Score: 18 Admission ROS BHS - HPI Chief Complaint: heroin withdrawal sx, got fed up wants detox Allergies/Adverse Reactions: Allergies Allergy/AdvReac Type Severity Reaction Status Date / Time No Known Allergies Allergy Verified 08/15/17 15:49 History of Present Illness: 51 yo m with h/o chronic alcoholism, opioid, cocaine, cannabis and nicotine (1 PPD) dependence, last used yesterday alcohol and heorin PMHX neg, no suicidal ideation no suicide attempts in past, no seizures, no DTs, no benzodiazepine abuse/use reports opioid and alcohol ithdrawal w recent wt loss after binge last few days Exam Limitations: No Limitations - Ebola screening Have you traveled outside of the country in the last 21 days: No Have you had contact with anyone from an Ebola affected area: No Have you been sick,other than usual withdrawal symptoms: No Do you have a fever: No - Review of Systems Constitutional: Chills, Diaphoresis, Loss of Appetite, Malaise, Night Sweats, Weakness, Unintentional Wgt. Loss EENT: reports: Nose Congestion Respiratory: reports: SOB with Exertion Cardiac: reports: No Symptoms Reported GI: reports: Diarrhea, Nausea, Poor Appetite, Poor Fluid Intake, Indigestion, Abdominal cramping : reports: No Symptoms Reported Musculoskeletal: reports: Joint Pain, Muscle Pain, Neck Pain Integumentary: reports: Flushing, Sweating Neuro: reports: Tremors, Weakness Endocrine: reports: No Symptoms Reported Hematology: reports: No Symptoms Reported Psychiatric: reports: Judgement Intact, Mood/Affect Appropiate, Orientated x3, Anxious, Depressed Other Systems: Reviewed and Negative Patient History - Patient Medical History Hx Anemia: No Hx Asthma: No Hx Chronic Obstructive Pulmonary Disease (COPD): No Hx Cancer: No Hx Cardiac Disorders: No Hx Congestive Heart Failure: No Hx Hypertension: No Hx Hypercholesterolemia: No Hx Pacemaker: No HX Cerebrovascular Accident: No Hx Seizures: No Hx Dementia: No Hx Diabetes: No Hx Gastrointestinal Disorders: No Hx Liver Disease: No Hx Genitourinary Disorders: No Hx Sexually Transmitted Disorders: No Hx Renal Disease (ESRD): No Hx Thyroid Disease: No Hx Human Immunodeficiency Virus (HIV): No (NEGATIVE HX) Hx Hepatitis C: No Hx Depression: No Hx Suicide Attempt: No Hx Bipolar Disorder: No Hx Schizophrenia: No - Patient Surgical History Past Surgical History: Yes Hx Neurologic Surgery: No Hx Cataract Extraction: No Hx Cardiac Surgery: No Hx Lung Surgery: No Hx Breast Surgery: No Hx Breast Biopsy: No Hx Abdominal Surgery: Yes (left inguinal hernia repair age 7) Hx Appendectomy: No Hx Cholecystectomy: No Hx Genitourinary Surgery: No Hx Section: No Hx Orthopedic Surgery: No Other Surgical History: left inguinal hernia repair Anesthesia Reaction: No - PPD History Previous Implant?: Yes Documented Results: Negative w/proof Implanted On Prior [facility] Admission?: Yes Date: 06/08/17 Results: 0 MM PPD to be Administered?: No - Reproductive History Patient is a Female of Child Bearing Age (11 -55 yrs old): No Patient : No - Smoking Cessation Smoking history: Current every day smoker Have you smoked in the past 12 months: Yes Aproximately how many cigarettes per day: 10 Cigars Per Day: 0 Hx Chewing Tobacco Use: No Initiated information on smoking cessation: Yes 'Breaking Loose' booklet given: 08/15/17 - Substance & Tx. History Hx Alcohol Use: No Hx Substance Use: Yes Substance Use Type: Cocaine, Heroin, Marijuana, Opiates Hx Substance Use Treatment: Yes (multiple times at [facility]) - Substances Abused Heroin Route: Inhalation Frequency: Daily Amount used: 7-8 BAGS Age of first use: 34 Date of Last Use: 08/14/17 Alcohol Route: Oral Frequency: Daily Amount used: 1/2 PINT VODKA/ 2-3 24 OZ BEERS Age of first use: 22 Date of Last Use: 08/14/17 Cocaine Route: Inhalation Frequency: Daily Amount used: $10 Age of first use: 22 Date of Last Use: 08/14/17 Marijuana/Hashish Route: Smoking Frequency: 1-3 times last 30 days Amount used: 1 JOINT Age of first use: 19 Date of Last Use: 08/13/17 Family Disease History - Family Disease History Family Disease History: Other: Father (parkinsons dx), Mother (AIDS ) Admission Physical Exam [facility] - Vital Signs Vital Signs: Vital Signs - 24 hr 08/15/17 14:54 Temperature 97.9 F Pulse Rate 78 Respiratory 18 Rate Blood Pressure 98/66 - Physical General Appearance: Yes: Nourished, Appropriately Dressed, Disheveled, Mild Distress, Cachetic, Thin, Tremorous, Irritable, Sweating, Anxious HEENTM: Yes: EOMI, Hearing grossly Normal, Normal ENT Inspection, Pharynx Normal , Tm's normal, Nasal Congestion, Rhinorrhea Respiratory: Yes: Within Normal Limits, Chest Non-Tender, Lungs Clear, Normal Breath Sounds, No Respiratory Distress, No Accessory Muscle Use Neck: Yes: Within Normal Limits, No masses,lesions,Nodules, Supple, Trachea in good position Breast: Yes: Breast Exam Deferred Cardiology: Yes: Within Normal Limits, Regular Rhythm, Regular Rate, S1, S2 Abdominal: Yes: Within Normal Limits, Normal Bowel Sounds, Non Tender, Flat, Soft Genitourinary: Yes: Within Normal Limits Back: Yes: Normal Inspection, Muscle Spasm Musculoskeletal: Yes: full range of Motion, Gait Steady, Pelvis Stable, Back pain Extremities: Yes: Normal Capillary Refill, Normal Inspection, Normal Range of Motion, Non-Tender Neurological: 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: 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 NML intact, Fully Oriented, Alert, Motor Strength 5/5, Normal Response Integumentary: Yes: Diaphoresis, Moist Lymphatic: Yes: Within Normal Limits - Addiitonal Findings: withdrawal sx - Diagnostic (1) Alcohol dependence with uncomplicated withdrawal Current Visit: Yes Status: Chronic (2) Cannabis dependence Current Visit: Yes Status: Chronic (3) Cocaine dependence Current Visit: Yes Status: Chronic Qualifiers: Substance use status: uncomplicated Qualified Code(s): F14.20 - Cocaine dependence, uncomplicated (4) Drug-induced mood disorder Current Visit: Yes Status: Acute (5) Nicotine dependence Current Visit: No Status: Acute Qualifiers: Nicotine product type: cigarettes Substance use status: in withdrawal Qualified Code(s): F17.213 - Nicotine dependence, cigarettes, with withdrawal (6) Opioid dependence with withdrawal Current Visit: No Status: Acute (7) Substance induced mood disorder Current Visit: No Status: Acute (8) Substance-induced sleep disorder Current Visit: No Status: Acute (9) Tinea pedis Current Visit: Yes Status: Chronic Qualifiers: Laterality: bilateral Qualified Code(s): B35.3 - Tinea pedis (10) Weight decreased Current Visit: Yes Status: Acute Cleared for Admission S - Detox or Rehab [facility] Level of Care: Medically Managed Detox Regimen/Protocol: Methadone/Librium S Breath Alcohol Content Breath Alcohol Content: 0 Urine Drug Screen - Results Drug Screen Negative: No Urine Drug Screen Results: THC-Marijuana, DANNIE-Cocaine, OPI-Opiates, BZO- Benzodiazepines, MTD-Methadone
[2017-08-15] MEDS ORDERED: chlordiazePOXIDE HCL 25 MG CAPSULE PO ONE (16:45)
[2017-08-15] MEDS ORDERED: METHADONE HCL 10 MG TABLET (FOR DETOX USE ONLY) PO ONE ×2 (17:00→23:00)
[2017-08-15] MEDS: NICOTINE 21 MG/24 HOURS TOPICAL PATCH TD SCH (17:32)
[2017-08-15] MEDS: THIAMINE HCL 100 MG TABLET (FP) PO SCH (22:04)
[2017-08-15] MEDS: ZOLPIDEM TARTRATE 10 MG TABLET (PARK CARE ONLY) PO PRN (22:04)
[2017-08-15] MEDS: chlordiazePOXIDE HCL 25 MG CAPSULE PO SCH (22:04)
[2017-08-15] MEDS: TOLNAFTATE 1% CREAM 15 GM TUBE TP SCH (22:06)
[2017-08-15 23:22] LABS: URINE APPEARANCE CLEAR; URINE BILIRUBIN NEGATIVE (NEGATIVE); URINE BLOOD NEGATIVE (NEGATIVE); URINE COLOR YELLOW; URINE GLUCOSE (UA) NEGATIVE (NEGATIVE); URINE KETONE TRACE (NEGATIVE); URINE LEUK ESTERASE NEGATIVE (NEGATIVE); URINE NITRITE NEGATIVE (NEGATIVE); URINE PROTEIN NEGATIVE (NEGATIVE); URINE UROBILINOGEN NEGATIVE mg/dL (0.2-1.0)
[2017-08-16] MEDS: guaiFENesin/D-METHORPHAN HB 10 ML UNIT-DOSE CUPS PO PRN (06:00)
[2017-08-16] MEDS: chlordiazePOXIDE HCL 25 MG CAPSULE PO SCH ×4 (06:01→22:01)
[2017-08-16] MEDS ORDERED: METHADONE HCL 10 MG TABLET (FOR DETOX USE ONLY) PO ONE (10:00)
[2017-08-16] MEDS: PRENATAL VITAMINS W/ FOLIC ACID TABLET (FP) PO SCH (10:12)
[2017-08-16] MEDS: TOLNAFTATE 1% CREAM 15 GM TUBE TP SCH ×2 (10:13→22:02)
[2017-08-16] MEDS: NICOTINE 21 MG/24 HOURS TOPICAL PATCH TD SCH (10:13)
[2017-08-16 10:14] LABS: MCHC 32.9 g/dl (32.0-35.9); MEAN CELL VOLUME 100.5 fl (80-96); PLATELET COUNT 277 K/MM3 (134-434); RDW 13.9 % (11.9-15.9); WHITE BLOOD COUNT 7.9 K/mm3 (4.0-10.0)
[2017-08-16 10:19] LABS: ALBUMIN 3.4 g/dl (3.4-5.0); ANION GAP 4 (8-16); BILIRUBIN,TOTAL 0.2 mg/dL (0.2-1.0); CO2 30 mmol/L (21-32); CREATININE 0.9 mg/dL (0.7-1.3); GLUCOSE,RANDOM 82 mg/dL (74-106); SGOT/AST 14 U/L (15-37); SGPT/ALT 12 U/L (12-78); TOT PROT 6.5 g/dl (6.4-8.2)
[2017-08-16 10:20] LABS: ALK PHOS 68 U/L (45-117)
--- NOTE | 2017-08-16 10:33 | EKG ---
Test Reason : Blood Pressure : / mmHG Vent. Rate : 059 BPM Atrial Rate : 059 BPM P-R Int : 110 ms QRS Dur : 086 ms QT Int : 382 ms P-R-T Axes : 062 080 045 degrees QTc Int : 378 ms SINUS BRADYCARDIA WITH SINUS ARRHYTHMIA WITH SHORT HI POSSIBLE LEFT ATRIAL ENLARGEMENT NONSPECIFIC T WAVE ABNORMALITY ABNORMAL ECG WHEN COMPARED WITH ECG OF 15-AUG-2017 17:23, NONSPECIFIC T WAVE ABNORMALITY NOW EVIDENT IN LATERAL LEADS Confirmed by LOTUS QUINTEROS MD ([id number]) on 08/16/2017 10:33:04 AM Referred By: Confirmed By:LOTUS QUINTEROS MD
--- NOTE | 2017-08-16 10:35 | EKG ---
Test Reason : Blood Pressure : / mmHG Vent. Rate : 057 BPM Atrial Rate : 057 BPM P-R Int : 116 ms QRS Dur : 084 ms QT Int : 434 ms P-R-T Axes : 065 082 064 degrees QTc Int : 422 ms SINUS BRADYCARDIA WITH SINUS ARRHYTHMIA POSSIBLE LEFT ATRIAL ENLARGEMENT BORDERLINE ECG WHEN COMPARED WITH ECG OF 10-JUL-2017 13:00, NO SIGNIFICANT CHANGE WAS FOUND Confirmed by NELI ERNST, LOTUS ([id number]) on 08/16/2017 10:35:05 AM Referred By: Confirmed By:LOTUS QUINTEROS MD
--- NOTE | 2017-08-16 11:18 | PN ---
[facility] CIWA - CIWA Score Nausea/Vomitin-No Nausea/No Vomiting Muscle Tremors: 4-Moderate,w/Arms Extend Anxiety: 4-Mod. Anxious/Guarded Agitation: 4-Moderately Restless Paroxysmal Sweats: 1-Minimal Palms Moist Orientation: 0-Oriented Tacttile Disturbances: 3-Moderate Itch/Numb/Burn Auditory Disturbances: 0-None Visual Disturbances: 0-None Headache: 0-None Present CIWA-Ar Total Score: 16 S COWS - Scale Resting Pulse: 0= [place] 80 or Below Sweatin= Chills/Flushing Restless Observation: 3= Extraneous Movement Pupil Size: 2= Moderately Dilated Bone or Joint Aches: 4=Acute Joint/Muscle Pain Runny Nose/ Eye Tearin= Nasal Congestion GI Upset > 30mins: 1= Stomach Cramp Tremor Observation of Outstretched Hands: 1= Tremor [place], Not Seen Yawning Observation: 1= 1-2x During Session Anxiety or Irritability: 1=Feels Anxious/Irritable Goose Flesh Skin: 0=Smooth Skin COWS Score: 15 [facility] Progress Note (SOAP) Subjective: ANXIETY,TREMORS,SWEATS,INTERMITTENT SLEEP. Objective: 08/16/17 11:15 Vital Signs Temperature 98.7 F 08/16/17 09:39 Pulse Rate 65 08/16/17 09:39 Respiratory Rate 18 08/16/17 09:39 Blood Pressure 119/85 08/16/17 09:39 O2 Sat by Pulse Oximetry (%) Laboratory Last Values WBC 7.9 K/mm3 (4.0-10.0) 08/16/17 07:00 RBC 4.17 M/mm3 (4.00-5.60) 08/16/17 07:00 Hgb 13.8 GM/dL (11.7-16.9) 08/16/17 07:00 Hct 41.9 % (35.4-49) 08/16/17 07:00 MCV 100.5 fl (80-96) H 08/16/17 07:00 MCH 33.0 pg (25.7-33.7) 08/16/17 07:00 MCHC 32.9 g/dl (32.0-35.9) 08/16/17 07:00 RDW 13.9 % (11.9-15.9) 08/16/17 07:00 Plt Count 277 K/MM3 (134-434) 08/16/17 07:00 MPV 8.0 fl (7.5-11.1) 08/16/17 07:00 Sodium 141 mmol/L (136-145) 08/16/17 07:00 Potassium 4.1 mmol/L (3.5-5.1) 08/16/17 07:00 Chloride 107 mmol/L (98-107) 08/16/17 07:00 Carbon Dioxide 30 mmol/L (21-32) 08/16/17 07:00 Anion Gap 4 (8-16) L 08/16/17 07:00 BUN 17 mg/dL (7-18) D 08/16/17 07:00 Creatinine 0.9 mg/dL (0.7-1.3) 08/16/17 07:00 Creat Clearance w eGFR > 60 (>60) 08/16/17 07:00 Random Glucose 82 mg/dL (74-106) 08/16/17 07:00 Calcium 9.0 mg/dL (8.5-10.1) 08/16/17 07:00 Total Bilirubin 0.2 mg/dL (0.2-1.0) D 08/16/17 07:00 AST 14 U/L (15-37) L D 08/16/17 07:00 ALT 12 U/L (12-78) D 08/16/17 07:00 Alkaline Phosphatase 68 U/L (45-117) 08/16/17 07:00 Total Protein 6.5 g/dl (6.4-8.2) 08/16/17 07:00 Albumin 3.4 g/dl (3.4-5.0) 08/16/17 07:00 Urine Color Yellow 08/15/17 22:31 Urine Appearance Clear 08/15/17 22:31 Urine pH 5.0 (5.0-8.0) 08/15/17 22:31 Ur Specific [place] 1.020 (1.005-1.025) 08/15/17 22:31 Urine Protein Negative (NEGATIVE) 08/15/17 22:31 Urine Glucose (UA) Negative (NEGATIVE) 08/15/17 22:31 Urine Ketones Trace (NEGATIVE) H 08/15/17 22:31 Urine Blood Negative (NEGATIVE) 08/15/17 22:31 Urine Nitrite Negative (NEGATIVE) 08/15/17 22:31 Urine Bilirubin Negative (NEGATIVE) 08/15/17 22:31 Urine Urobilinogen Negative mg/dL (0.2-1.0) 08/15/17 22:31 Assessment: 08/16/17 11:16 WITHDRAWAL SX Plan: CONTINUE DETOX
[2017-08-16] MEDS: THIAMINE HCL 100 MG TABLET (FP) PO SCH (22:01)
[2017-08-16] MEDS: ZOLPIDEM TARTRATE 10 MG TABLET (PARK CARE ONLY) PO PRN (22:01)
[2017-08-17] MEDS: chlordiazePOXIDE HCL 25 MG CAPSULE PO SCH ×3 (06:19→17:26)
[2017-08-17] MEDS: guaiFENesin/D-METHORPHAN HB 10 ML UNIT-DOSE CUPS PO PRN (06:19)
[2017-08-17] MEDS ORDERED: METHADONE HCL 5 MG TABLET (FOR DETOX USE ONLY) PO ONE (10:00)
[2017-08-17] MEDS: PRENATAL VITAMINS W/ FOLIC ACID TABLET (FP) PO SCH (10:26)
[2017-08-17] MEDS: NICOTINE 21 MG/24 HOURS TOPICAL PATCH TD SCH (10:27)
[2017-08-17] MEDS: TOLNAFTATE 1% CREAM 15 GM TUBE TP SCH ×2 (11:36→22:39)
--- NOTE | 2017-08-17 13:12 | PN ---
[facility] CIWA - CIWA Score Nausea/Vomitin-No Nausea/No Vomiting Muscle Tremors: 4-Moderate,w/Arms Extend Anxiety: 4-Mod. Anxious/Guarded Agitation: 4-Moderately Restless Paroxysmal Sweats: 1-Minimal Palms Moist Orientation: 0-Oriented Tacttile Disturbances: 3-Moderate Itch/Numb/Burn Auditory Disturbances: 0-None Visual Disturbances: 0-None Headache: 0-None Present CIWA-Ar Total Score: 16 S COWS - Scale Resting Pulse: 0= [place] 80 or Below Sweatin= Chills/Flushing Restless Observation: 3= Extraneous Movement Pupil Size: 0= Normal to Room Light Bone or Joint Aches: 2= Severe Diffuse Aches Runny Nose/ Eye Tearin= Nasal Congestion GI Upset > 30mins: 1= Stomach Cramp Tremor Observation of Outstretched Hands: 1= Tremor [place], Not Seen Yawning Observation: 1= 1-2x During Session Anxiety or Irritability: 2=Irritable/Anxious Goose Flesh Skin: 0=Smooth Skin COWS Score: 12 [facility] Progress Note (SOAP) Subjective: ANXIETY,SWEAT/CHILLS, INTERMITTENT SLEEP. Objective: 08/17/17 13:13 Vital Signs Temperature 96.3 F L 08/17/17 10:28 Pulse Rate 75 08/17/17 10:28 Respiratory Rate 18 08/17/17 10:28 Blood Pressure 115/81 08/17/17 10:28 O2 Sat by Pulse Oximetry (%) Laboratory Last Values WBC 7.9 K/mm3 (4.0-10.0) 08/16/17 07:00 RBC 4.17 M/mm3 (4.00-5.60) 08/16/17 07:00 Hgb 13.8 GM/dL (11.7-16.9) 08/16/17 07:00 Hct 41.9 % (35.4-49) 08/16/17 07:00 MCV 100.5 fl (80-96) H 08/16/17 07:00 MCH 33.0 pg (25.7-33.7) 08/16/17 07:00 MCHC 32.9 g/dl (32.0-35.9) 08/16/17 07:00 RDW 13.9 % (11.9-15.9) 08/16/17 07:00 Plt Count 277 K/MM3 (134-434) 08/16/17 07:00 MPV 8.0 fl (7.5-11.1) 08/16/17 07:00 Sodium 141 mmol/L (136-145) 08/16/17 07:00 Potassium 4.1 mmol/L (3.5-5.1) 08/16/17 07:00 Chloride 107 mmol/L (98-107) 08/16/17 07:00 Carbon Dioxide 30 mmol/L (21-32) 08/16/17 07:00 Anion Gap 4 (8-16) L 08/16/17 07:00 BUN 17 mg/dL (7-18) D 08/16/17 07:00 Creatinine 0.9 mg/dL (0.7-1.3) 08/16/17 07:00 Creat Clearance w eGFR > 60 (>60) 08/16/17 07:00 Random Glucose 82 mg/dL (74-106) 08/16/17 07:00 Calcium 9.0 mg/dL (8.5-10.1) 08/16/17 07:00 Total Bilirubin 0.2 mg/dL (0.2-1.0) D 08/16/17 07:00 AST 14 U/L (15-37) L D 08/16/17 07:00 ALT 12 U/L (12-78) D 08/16/17 07:00 Alkaline Phosphatase 68 U/L (45-117) 08/16/17 07:00 Total Protein 6.5 g/dl (6.4-8.2) 08/16/17 07:00 Albumin 3.4 g/dl (3.4-5.0) 08/16/17 07:00 Urine Color Yellow 08/15/17 22:31 Urine Appearance Clear 08/15/17 22:31 Urine pH 5.0 (5.0-8.0) 08/15/17 22:31 Ur Specific [place] 1.020 (1.005-1.025) 08/15/17 22:31 Urine Protein Negative (NEGATIVE) 08/15/17 22:31 Urine Glucose (UA) Negative (NEGATIVE) 08/15/17 22:31 Urine Ketones Trace (NEGATIVE) H 08/15/17 22:31 Urine Blood Negative (NEGATIVE) 08/15/17 22:31 Urine Nitrite Negative (NEGATIVE) 08/15/17 22:31 Urine Bilirubin Negative (NEGATIVE) 08/15/17 22:31 Urine Urobilinogen Negative mg/dL (0.2-1.0) 08/15/17 22:31 RPR Titer Nonreactive (NONREACTIVE) 08/16/17 07:00 Assessment: 08/17/17 13:17 WITHDRAWAL SX Plan: CONTINUE DETOX
[2017-08-17] MEDS: chlordiazePOXIDE HCL 25 MG CAPSULE PO PRN (13:59)
[2017-08-17] MEDS: THIAMINE HCL 100 MG TABLET (FP) PO SCH (22:39)
[2017-08-17] MEDS: ZOLPIDEM TARTRATE 10 MG TABLET (PARK CARE ONLY) PO PRN (22:39)
[2017-08-17] MEDS: chlordiazePOXIDE 5 MG CAPSULE PO SCH (22:40)
[2017-08-18] MEDS: chlordiazePOXIDE 5 MG CAPSULE PO SCH ×3 (06:02→17:10)
[2017-08-18] MEDS ORDERED: METHADONE HCL 5 MG TABLET (FOR DETOX USE ONLY) PO ONE (10:00)
[2017-08-18] MEDS: TOLNAFTATE 1% CREAM 15 GM TUBE TP SCH ×2 (10:07→22:04)
[2017-08-18] MEDS: PRENATAL VITAMINS W/ FOLIC ACID TABLET (FP) PO SCH (10:07)
[2017-08-18] MEDS: NICOTINE 21 MG/24 HOURS TOPICAL PATCH TD SCH (10:08)
--- NOTE | 2017-08-18 10:45 | CONSULT ---
[facility] Psychiatric Consult - Data Date of interview: 08/18/17 Admission source: Self-referred Identifying data: Mr Chaudhary is a 51 years old single male, unemployed on food stamp, homeless seeking detox treatment for alcohol, heroin, cocaine and marijuana Substance Abuse History: Reports history of alcohol, heroin, cocaine and marijuana use. Reports that he started drinking alcohol and using cocaine at age 22, consumes half a pint of vodka 7 2-3x 24oz of beer and $10 worth of cocaine daily. He started using heroin at age 34, consumes 7-8 bags daily. He started smoking marijuana at age 19, consumes $10 worth 1-2 tmes weely. Last drink, used cocaine and heroin on 08/14/17 and smoked marijuana on 08/13/17 Medical History: Significant for history of surgery for left inguinal hernia repair. Smokes 10 cigarettes daily Psychiatric History: Reports that he has been feeling depressed, drinking excessively and abusing more drug since his father last year. During an admission to detox last June, he told Dr Wagner that 4 years ago, He received psychiatric outpatient treatment for depression/anxiety at [facility]. He said that he was prescribed Klonopin and Suboxone. He attended that clinic for 8-9 months and stopped after the clinic was closed for medicaid fraud. Denies previous psychiatric hospitalization or suicidal attempt. At present, reports feeling depressed, anxious Physical/Sexual Abuse/Trauma History: Denies history of verbal, physical or sexual abuse as well as DV relationship. Additional Comment: Denies criminal history Mental Status Exam - Mental Status Exam Alert and Oriented to: Time, Place, Person Cognitive Function: Fair Patient Appearance: Well Groomed Mood: Depressed Affect: Appropriate Patient Behavior: Cooperative Speech Pattern: Clear Voice Loudness: Normal Thought Process: Intact, Goal Oriented Hallucinations: None Suicidal Ideation: None Homicidal Ideation: None Insight/Judgement: Poor Sleep: Fair Appetite: Good Muscle strength/Tone: Normal Gait/Station: Normal Psychiatric Findings - Problem List ([place] 1, 2,3) (1) Alcohol dependence with uncomplicated withdrawal Current Visit: Yes Status: Acute (2) Opioid dependence with withdrawal Current Visit: Yes Status: Acute (3) Cocaine dependence Current Visit: Yes Status: Chronic Qualifiers: Substance use status: uncomplicated Qualified Code(s): F14.20 - Cocaine dependence, uncomplicated (4) Cannabis dependence, uncomplicated Current Visit: Yes Status: Acute (5) Nicotine dependence Current Visit: Yes Status: Acute Qualifiers: Nicotine product type: cigarettes Substance use status: in withdrawal Qualified Code(s): F17.213 - Nicotine dependence, cigarettes, with withdrawal (6) Drug-induced mood disorder Current Visit: Yes Status: Acute (7) Tinea pedis Current Visit: Yes Status: Chronic Qualifiers: Laterality: bilateral Qualified Code(s): B35.3 - Tinea pedis - Initial Treatment Plan Initial Treatment Plan: Continue inpatient detoxification
--- NOTE | 2017-08-18 12:11 | PN ---
[facility] Progress Note (SOAP) Subjective: Sweating, body aches. Objective: PT. A & O X 3, OBSERVED AMBULATING ON UNIT. NO ACUTE DISTRESS. PT. DENIES CHEST PAIN. 08/18/17 12:10 Vital Signs Temperature 97.3 F L 08/18/17 10:44 Pulse Rate 77 08/18/17 10:44 Respiratory Rate 18 08/18/17 10:44 Blood Pressure 104/70 08/18/17 10:44 O2 Sat by Pulse Oximetry (%) Laboratory Tests 08/15/17 08/16/17 08/16/17 22:31 07:00 07:00 WBC 7.9 RBC 4.17 Hgb 13.8 Hct 41.9 MCV 100.5 H MCH 33.0 MCHC 32.9 RDW 13.9 Plt Count 277 MPV 8.0 Sodium 141 Potassium 4.1 Chloride 107 Carbon Dioxide 30 Anion Gap 4 L BUN 17 D Creatinine 0.9 Creat Clearance w eGFR > 60 Random Glucose 82 Calcium 9.0 Total Bilirubin 0.2 D AST 14 L D ALT 12 D Alkaline Phosphatase 68 Total Protein 6.5 Albumin 3.4 Urine Color Yellow Urine Appearance Clear Urine pH 5.0 Ur Specific [place] 1.020 Urine Protein Negative Urine Glucose (UA) Negative Urine Ketones Trace H Urine Blood Negative Urine Nitrite Negative Urine Bilirubin Negative Urine Urobilinogen Negative RPR Titer 08/16/17 07:00 WBC RBC Hgb Hct MCV MCH MCHC RDW Plt Count MPV Sodium Potassium Chloride Carbon Dioxide Anion Gap BUN Creatinine Creat Clearance w eGFR Random Glucose Calcium Total Bilirubin AST ALT Alkaline Phosphatase Total Protein Albumin Urine Color Urine Appearance Urine pH Ur Specific [place] Urine Protein Urine Glucose (UA) Urine Ketones Urine Blood Urine Nitrite Urine Bilirubin Urine Urobilinogen RPR Titer Nonreactive LABS NOTED. Assessment: 08/18/17 12:10 WITHDRAWAL SYMPTOMS. Plan: CONTINUE DETOX. INCREASE DAILY PO FLUID INTAKE.
[2017-08-18] MEDS: chlordiazePOXIDE HCL 25 MG CAPSULE PO PRN (15:41)
[2017-08-18] MEDS: chlordiazePOXIDE HCL 10 MG CAPSULE PO SCH (22:04)
[2017-08-18] MEDS: THIAMINE HCL 100 MG TABLET (FP) PO SCH (22:04)
[2017-08-18] MEDS: diphenhydrAMINE HCL 50 MG CAPSULE PO PRN (22:04)
[2017-08-19] MEDS: chlordiazePOXIDE HCL 10 MG CAPSULE PO SCH ×3 (07:09→17:32)
[2017-08-19] MEDS ORDERED: METHADONE HCL 10 MG TABLET (FOR DETOX USE ONLY) PO ONE (10:00)
[2017-08-19] MEDS: NICOTINE 21 MG/24 HOURS TOPICAL PATCH TD SCH (10:19)
[2017-08-19] MEDS: TOLNAFTATE 1% CREAM 15 GM TUBE TP SCH ×2 (10:19→22:54)
[2017-08-19] MEDS: PRENATAL VITAMINS W/ FOLIC ACID TABLET (FP) PO SCH (10:19)
--- NOTE | 2017-08-19 16:27 | PN ---
[facility] Progress Note (SOAP) Subjective: Sweating, Anxious, Fatigue. Objective: PT. A & O X 3, OBSERVED AMBULATING ON UNIT. NO ACUTE DISTRESS. PT. DENIES CHEST PAIN. 08/19/17 16:25 Vital Signs Temperature 96.2 F L 08/19/17 15:21 Pulse Rate 84 08/19/17 15:21 Respiratory Rate 18 08/19/17 15:21 Blood Pressure 109/69 08/19/17 15:21 O2 Sat by Pulse Oximetry (%) Laboratory Tests 08/15/17 08/16/17 08/16/17 22:31 07:00 07:00 WBC 7.9 RBC 4.17 Hgb 13.8 Hct 41.9 MCV 100.5 H MCH 33.0 MCHC 32.9 RDW 13.9 Plt Count 277 MPV 8.0 Sodium 141 Potassium 4.1 Chloride 107 Carbon Dioxide 30 Anion Gap 4 L BUN 17 D Creatinine 0.9 Creat Clearance w eGFR > 60 Random Glucose 82 Calcium 9.0 Total Bilirubin 0.2 D AST 14 L D ALT 12 D Alkaline Phosphatase 68 Total Protein 6.5 Albumin 3.4 Urine Color Yellow Urine Appearance Clear Urine pH 5.0 Ur Specific [place] 1.020 Urine Protein Negative Urine Glucose (UA) Negative Urine Ketones Trace H Urine Blood Negative Urine Nitrite Negative Urine Bilirubin Negative Urine Urobilinogen Negative RPR Titer 08/16/17 07:00 WBC RBC Hgb Hct MCV MCH MCHC RDW Plt Count MPV Sodium Potassium Chloride Carbon Dioxide Anion Gap BUN Creatinine Creat Clearance w eGFR Random Glucose Calcium Total Bilirubin AST ALT Alkaline Phosphatase Total Protein Albumin Urine Color Urine Appearance Urine pH Ur Specific [place] Urine Protein Urine Glucose (UA) Urine Ketones Urine Blood Urine Nitrite Urine Bilirubin Urine Urobilinogen RPR Titer Nonreactive LABS NOTED. Assessment: 08/19/17 16:26 WITHDRAWAL SYMPTOMS. Plan: CONTINUE DETOX.
[2017-08-19] MEDS: THIAMINE HCL 100 MG TABLET (FP) PO SCH (22:51)
[2017-08-19] MEDS: diphenhydrAMINE HCL 50 MG CAPSULE PO PRN (22:51)
[2017-08-20] MEDS ORDERED: METHADONE HCL 5 MG TABLET (FOR DETOX USE ONLY) PO ONE (06:00)
[2017-08-20 07:07] VITALS: BP 109/60; PULSE 77; TEMP 96.6
--- NOTE | 2017-08-20 13:15 | DS ---
[facility] Detox Discharge Summary Admission Date: 08/15/17 Discharge Date: 08/20/17 - History Present History: Alcohol Dependence, Cannabis Dependence, Cocaine Dependence, Opioid Dependence Pertinent Past History: Denies - Physical Exam Results Vital Signs: Vital Signs Temperature 96.6 F L 08/20/17 07:00 Pulse Rate 77 08/20/17 07:00 Respiratory Rate 18 08/20/17 07:00 Blood Pressure 109/60 08/20/17 07:00 O2 Sat by Pulse Oximetry (%) Pertinent Admission Physical Exam Findings: Withdrawal symptoms Laboratory Tests 08/15/17 08/16/17 08/16/17 22:31 07:00 07:00 WBC 7.9 RBC 4.17 Hgb 13.8 Hct 41.9 MCV 100.5 H MCH 33.0 MCHC 32.9 RDW 13.9 Plt Count 277 MPV 8.0 Sodium 141 Potassium 4.1 Chloride 107 Carbon Dioxide 30 Anion Gap 4 L BUN 17 D Creatinine 0.9 Creat Clearance w eGFR > 60 Random Glucose 82 Calcium 9.0 Total Bilirubin 0.2 D AST 14 L D ALT 12 D Alkaline Phosphatase 68 Total Protein 6.5 Albumin 3.4 Urine Color Yellow Urine Appearance Clear Urine pH 5.0 Ur Specific [place] 1.020 Urine Protein Negative Urine Glucose (UA) Negative Urine Ketones Trace H Urine Blood Negative Urine Nitrite Negative Urine Bilirubin Negative Urine Urobilinogen Negative RPR Titer 08/16/17 07:00 WBC RBC Hgb Hct MCV MCH MCHC RDW Plt Count MPV Sodium Potassium Chloride Carbon Dioxide Anion Gap BUN Creatinine Creat Clearance w eGFR Random Glucose Calcium Total Bilirubin AST ALT Alkaline Phosphatase Total Protein Albumin Urine Color Urine Appearance Urine pH Ur Specific [place] Urine Protein Urine Glucose (UA) Urine Ketones Urine Blood Urine Nitrite Urine Bilirubin Urine Urobilinogen RPR Titer Nonreactive Labs noted - Treatment Hospital Course: Detox Protocol Followed, Detoxed Safely, Responded well, Discharged Condition Good - Medication Discharge Medications: Ambulatory Orders NK [No Known Home Medication] 06/06/17 - Diagnosis (1) Alcohol dependence with uncomplicated withdrawal Status: Acute (2) Cannabis dependence, uncomplicated Status: Chronic (3) Drug-induced mood disorder Status: Acute (4) Nicotine dependence Status: Chronic Qualifiers: Nicotine product type: cigarettes Substance use status: in withdrawal Qualified Code(s): F17.213 - Nicotine dependence, cigarettes, with withdrawal (5) Opioid dependence with withdrawal Status: Acute (6) Cocaine dependence Status: Chronic Qualifiers: Substance use status: uncomplicated Qualified Code(s): F14.20 - Cocaine dependence, uncomplicated (7) Tinea pedis Status: Acute Qualifiers: Laterality: bilateral Qualified Code(s): B35.3 - Tinea pedis - AMA Did Patient Leave Against Medical Advice: No
== END 2017-08-20 09:25 | disposition home or self-care (01) | DRG 773 ==
LOC: YASAS 13:13 → Y3N 16:26
PROVIDERS: ADMIT Internal Medicine; ATTEND Internal Medicine
PROC: HZ2ZZZZ Detoxification Services for Substance Abuse Treatment (ICD-10-PCS; principal; 2017-08-15)
DX: F11.23 Opioid dependence with withdrawal (principal); F10.230 Alcohol dependence with withdrawal, uncomplicated; F14.20 Cocaine dependence, uncomplicated; F12.20 Cannabis dependence, uncomplicated; F17.210 Nicotine dependence, cigarettes, uncomplicated; F19.24 Other psychoactive substance dependence with psychoactive substance-induced mood disorder; F19.282 Other psychoactive substance dependence with psychoactive substance-induced sleep disorder; B35.3 Tinea pedis; R63.4 Abnormal weight loss; Z68.22 Body mass index [BMI] 22.0-22.9, adult; Z59.0 Homelessness
CPT/HCPCS: 36415; 80053; 81003; 85027; 86593; 93005; 93010

== ENCOUNTER 2017-09-16 12:12 | Inpatient (IN) | payer OTHER ==
[2017-09-16 12:55] VITALS: BMI 21.2
--- NOTE | 2017-09-16 13:05 | HP ---
COWS - Scale Resting Pulse: 1= [place] 81-100 Sweatin= Chills/Flushing Restless Observation: 1= Difficult to Sit Still Pupil Size: 0= Normal to Room Light Bone or Joint Aches: 1= Mild Discomfort Runny Nose/ Eye Tearin= Nasal Congestion GI Upset > 30mins: 1= Stomach Cramp Tremor Observation: 1= Tremor [place], Not Seen Yawning Observation: 1= 1-2x During Session Anxiety or Irritability: 1=Feels Anxious/Irritable CIWA Score - CIWA Score Nausea/Vomitin-Mild Nausea/No Vomiting Muscle Tremors: 4-Moderate,w/Arms Extend Anxiety: 4-Mod. Anxious/Guarded Agitation: 1-Slight > Activity Paroxysmal Sweats: 1-Minimal Palms Moist Orientation: 0-Oriented Tacttile Disturbances: 1-Very Mild Itch/Numbness Auditory Disturbances: 1-Very Mild Visual Disturbances: 1-Very Mild Sensitivity Headache: 1-Very Mild CIWA-Ar Total Score: 15 Admission ROS [facility] - HPI Chief Complaint: I was going overboard, I had to stop Allergies/Adverse Reactions: Allergies Allergy/AdvReac Type Severity Reaction Status Date / Time No Known Allergies Allergy Verified 08/15/17 15:49 History of Present Illness: 51 yo gentleman here for detox from alcohol and opiates - last here in july 2017 but relapsed shortly after and now thinking about rehab. No seizures. Exam Limitations: Clinical Condition - Ebola screening Have you traveled outside of the country in the last 21 days: No Have you had contact with anyone from an Ebola affected area: No Have you been sick,other than usual withdrawal symptoms: No Do you have a fever: No - Review of Systems Constitutional: Chills, Loss of Appetite, Night Sweats, Changes in sleep, Weakness EENT: reports: Blurred Vision, Nose Congestion Respiratory: reports: No Symptoms reported Cardiac: reports: No Symptoms Reported GI: reports: Poor Appetite, Indigestion : reports: No Symptoms Reported Musculoskeletal: reports: Back Pain, Muscle Pain Integumentary: reports: No Symptoms Reported Endocrine: reports: No Symptoms Reported Hematology: reports: No Symptoms Reported Psychiatric: reports: Judgement Intact, Mood/Affect Appropiate, Orientated x3, Anxious Other Systems: Reviewed and Negative Patient History - Patient Medical History Hx Anemia: No Hx Asthma: No Hx Chronic Obstructive Pulmonary Disease (COPD): No Hx Cancer: No Hx Cardiac Disorders: No Hx Congestive Heart Failure: No Hx Hypertension: No Hx Hypercholesterolemia: No Hx Pacemaker: No HX Cerebrovascular Accident: No Hx Seizures: No Hx Dementia: No Hx Diabetes: No Hx Gastrointestinal Disorders: No Hx Liver Disease: No Hx Genitourinary Disorders: No Hx Sexually Transmitted Disorders: No Hx Renal Disease (ESRD): No Hx Thyroid Disease: No Hx Human Immunodeficiency Virus (HIV): No Hx Hepatitis C: No Hx Depression: Yes (never hospitalized) Hx Suicide Attempt: No Hx Bipolar Disorder: No Hx Schizophrenia: No - Patient Surgical History Past Surgical History: Yes Hx Neurologic Surgery: No Hx Cataract Extraction: No Hx Cardiac Surgery: No Hx Lung Surgery: No Hx Breast Surgery: No Hx Breast Biopsy: No Hx Abdominal Surgery: Yes (left inguinal hernia repair age 7) Hx Appendectomy: No Hx Cholecystectomy: No Hx Genitourinary Surgery: No Hx Section: No Hx Orthopedic Surgery: No Anesthesia Reaction: No - PPD History Previous Implant?: Yes Documented Results: Negative w/proof Date: 06/08/17 Results: 0 MM PPD to be Administered?: No - Reproductive History Patient is a Female of Child Bearing Age (11 -55 yrs old): No (male) - Smoking Cessation Smoking history: Current every day smoker Have you smoked in the past 12 months: Yes Aproximately how many cigarettes per day: 15 Cigars Per Day: 0 Hx Chewing Tobacco Use: No Initiated information on smoking cessation: Yes 'Breaking Loose' booklet given: 09/16/17 (give on floor) - Substance & Tx. History Hx Alcohol Use: Yes Hx Substance Use: Yes Substance Use Type: Alcohol, Cocaine, Heroin, Marijuana, Opiates Hx Substance Use Treatment: Yes (detox) - Substances Abused Alcohol Route: Oral Frequency: Daily Amount used: 1 pint liquor, three 24 oz beers Age of first use: 21 Date of Last Use: 09/16/17 Heroin Route: Inhalation Frequency: Daily Amount used: 3 bags Age of first use: 34 Date of Last Use: 09/15/17 Cocaine Route: Smoking Frequency: Daily Amount used: $30 Age of first use: 21 Date of Last Use: 09/15/17 PCP Route: Smoking Frequency: 1-3 times last 30 days Amount used: 1 bag Age of first use: 21 Date of Last Use: 09/14/17 Non-Rx Methadone Route: Oral Frequency: 1-3 times last 30 days Amount used: 30mg Age of first use: 45 Date of Last Use: 09/14/17 Marijuana/Hashish Frequency: 1-2 times per week Amount used: 1 joint Age of first use: 18 Date of Last Use: 09/12/17 Family Disease History - Family Disease History Family Disease History: Other: Father (, parkinsons dx), Mother (AIDS , hx ivdu), Brother (1 - living - healthy), Sister (3 - living- healthy) Admission Physical Exam [facility] - Vital Signs Vital Signs: Vital Signs - 24 hr 09/16/17 12:52 Temperature 97 F L Pulse Rate 81 Respiratory 20 Rate Blood Pressure 105/68 - Physical General Appearance: Yes: Nourished, Appropriately Dressed, Mild Distress, Thin, Anxious HEENTM: Yes: Hearing grossly Normal, Normocephalic, Normal Voice, Pharynx Normal Respiratory: Yes: Normal Breath Sounds, No Respiratory Distress Neck: Yes: No masses,lesions,Nodules, Supple Breast: Yes: Breast Exam Deferred Cardiology: Yes: Regular Rhythm, Regular Rate Abdominal: Yes: Flat, Soft Genitourinary: Yes: Within Normal Limits Back: Yes: Normal Inspection Musculoskeletal: Yes: full range of Motion, Gait Steady Extremities: Yes: Normal Inspection, Normal Range of Motion Neurological: Yes: Fully Oriented, Alert, Normal Mood/Affect, Normal Response Integumentary: Yes: Normal Color, Warm Lymphatic: Yes: Within Normal Limits - Diagnostic (1) Alcohol dependence with uncomplicated withdrawal Current Visit: Yes Status: Chronic (2) Opioid dependence with withdrawal Current Visit: Yes Status: Chronic (3) Cocaine dependence Current Visit: Yes Status: Chronic Qualifiers: Substance use status: uncomplicated Qualified Code(s): F14.20 - Cocaine dependence, uncomplicated; F14.20 - Cocaine dependence, uncomplicated; F14.20 - Cocaine dependence, uncomplicated (4) Weight decreased Current Visit: Yes Status: Chronic (5) Nicotine dependence Current Visit: Yes Status: Chronic Qualifiers: Nicotine product type: cigarettes Substance use status: in withdrawal Qualified Code(s): F17.213 - Nicotine dependence, cigarettes, with withdrawal; F17.213 - Nicotine dependence, cigarettes, with withdrawal Cleared for Admission [facility] - Detox or Rehab [facility] Level of Care: Medically Managed Detox Regimen/Protocol: Methadone/Librium [facility] Breath Alcohol Content Breath Alcohol Content: 0 Urine Drug Screen - Results Drug Screen Negative: No Urine Drug Screen Results: THC-Marijuana, DANNIE-Cocaine, OPI-Opiates, PCP- Phencyclidine, MTD-Methadone
[2017-09-16] MEDS ORDERED: IBUPROFEN 400 MG TABLET (FP) PO PRN (13:12)
[2017-09-16] MEDS ORDERED: MAGNESIUM CITRATE 300 ML BOTTLE PO PRN (13:12)
[2017-09-16] MEDS ORDERED: MENTHOL/PHENOL 1 EACH UD MM PRN (13:12)
[2017-09-16] MEDS ORDERED: MAG HYDROX/AL HYDROX/SIMETH 30 ML UNIT-DOSE CUP PO PRN (13:12)
[2017-09-16] MEDS ORDERED: guaiFENesin/D-METHORPHAN HB 10 ML UNIT-DOSE CUPS PO PRN (13:12)
[2017-09-16] MEDS ORDERED: ACETAMINOPHEN 325 MG TABLET (FP) PO PRN (13:12)
[2017-09-16] MEDS ORDERED: P-EPHED 60MG/TRIPROLIDI 2.5MG TABLET PO PRN (13:12)
[2017-09-16] MEDS ORDERED: LOPERAMIDE HCL 2 MG CAPSULE PO PRN (13:12)
[2017-09-16] MEDS ORDERED: MAGNESIUM HYDROX 2400MG/30ML ORAL SUSPENSION 30 ML CUP PO PRN (13:12)
[2017-09-16] MEDS ORDERED: METHADONE HCL 10 MG TABLET (FOR DETOX USE ONLY) PO ONE ×2 (14:15→23:00)
[2017-09-16] MEDS ORDERED: chlordiazePOXIDE HCL 25 MG CAPSULE PO ONE (14:15)
[2017-09-16] MEDS ORDERED: METHADONE HCL 10 MG TABLET (FOR DETOX USE ONLY) ONE (17:31)
[2017-09-16] MEDS: chlordiazePOXIDE HCL 25 MG CAPSULE PO SCH ×2 (17:40→22:46)
[2017-09-16] MEDS: NICOTINE 21 MG/24 HOURS TOPICAL PATCH TD SCH (17:40)
[2017-09-16] MEDS: diphenhydrAMINE HCL 50 MG CAPSULE PO PRN (22:46)
[2017-09-16] MEDS: THIAMINE HCL 100 MG TABLET (FP) PO SCH (22:46)
[2017-09-16 23:04] LABS: URINE APPEARANCE CLEAR; URINE BILIRUBIN NEGATIVE (NEGATIVE); URINE BLOOD NEGATIVE (NEGATIVE); URINE COLOR YELLOW; URINE GLUCOSE (UA) NEGATIVE (NEGATIVE); URINE KETONE TRACE (NEGATIVE); URINE NITRITE NEGATIVE (NEGATIVE); URINE PROTEIN NEGATIVE (NEGATIVE); URINE UROBILINOGEN NEGATIVE mg/dL (0.2-1.0)
[2017-09-17] MEDS: chlordiazePOXIDE HCL 25 MG CAPSULE PO SCH ×4 (09:01→22:23)
[2017-09-17 09:47] LABS: MCH 33.9 pg (25.7-33.7); MCHC 33.5 g/dl (32.0-35.9); MEAN CELL VOLUME 101.2 fl (80-96); MEAN PLT VOLUME 8.3 fl (7.5-11.1); PLATELET COUNT 239 K/MM3 (134-434); RDW 14.4 % (11.9-15.9); WHITE BLOOD COUNT 8.1 K/mm3 (4.0-10.0)
[2017-09-17] MEDS ORDERED: METHADONE HCL 10 MG TABLET (FOR DETOX USE ONLY) PO SCH (10:00)
[2017-09-17 10:14] LABS: ALBUMIN 3.4 g/dl (3.4-5.0); ALK PHOS 62 U/L (45-117); ANION GAP 6 (8-16); BILIRUBIN,TOTAL 0.2 mg/dL (0.2-1.0); CALCIUM 8.3 mg/dL (8.5-10.1); CO2 28 mmol/L (21-32); CREATININE 0.8 mg/dL (0.7-1.3); GLUCOSE,RANDOM 79 mg/dL (74-106); SGOT/AST 13 U/L (15-37); SGPT/ALT 12 U/L (12-78); TOT PROT 6.1 g/dl (6.4-8.2)
--- NOTE | 2017-09-17 11:02 | EKG ---
Test Reason : Blood Pressure : / mmHG Vent. Rate : 060 BPM Atrial Rate : 060 BPM P-R Int : 114 ms QRS Dur : 084 ms QT Int : 388 ms P-R-T Axes : 059 078 055 degrees QTc Int : 388 ms NORMAL SINUS RHYTHM NORMAL ECG WHEN COMPARED WITH ECG OF 16-AUG-2017 09:30, NONSPECIFIC T WAVE ABNORMALITY NO LONGER EVIDENT IN INFERIOR LEADS NONSPECIFIC T WAVE ABNORMALITY NO LONGER EVIDENT IN LATERAL LEADS CLINICAL CORRELATION IS RECOMMENDED Confirmed by OCTAVIO LOPEZ MD ([id number]) on 09/17/2017 11:02:25 AM Referred By: Confirmed By:OCTAVIO LOPEZ MD
[2017-09-17] MEDS: PRENATAL VITAMINS W/ FOLIC ACID TABLET (FP) PO SCH (11:08)
[2017-09-17] MEDS: NICOTINE 21 MG/24 HOURS TOPICAL PATCH TD SCH (11:09)
--- NOTE | 2017-09-17 11:50 | CONSULT ---
[facility] Psychiatric Consult - Data Date of interview: 09/17/17 Admission source: [place]-referred Identifying data: Mr Chaudhary is a 51 years old single male, unemployed on food stamp. homeless Substance Abuse History: Reports history of alcohol, street methadone, cocaine, marijuana and pcp use. Refer to addiction counselor's note for further information Medical History: Significant for history of surgery for left inguinal hernia repair. Smokes 10 cigarettes daily Psychiatric History: Denies history of previous psychiatric hospitalization or suicidal attempt. However, reports receiving psychiatric outpatient treatment for depression/anxiety at [facility] in the past. Claims that he was prescribed Klonopin and Suboxone. He attended that clinic for 8-9 months and stopped after the clinic was closed for medicaid fraud At present, reports feeling depressed and sleeping poorly Physical/Sexual Abuse/Trauma History: Denies history of verbal, physical or sexual abuse as well as DV relationship. Additional Comment: Denies criminal history Mental Status Exam - Mental Status Exam Alert and Oriented to: Time, Place, Person Cognitive Function: Fair Patient Appearance: Well Groomed Mood: Depressed Affect: Appropriate Patient Behavior: Cooperative Speech Pattern: Clear Voice Loudness: Normal Thought Process: Intact, Goal Oriented Thought Disorder: Not Present Hallucinations: Denies Suicidal Ideation: Denies Homicidal Ideation: Denies Insight/Judgement: Poor Sleep: Poorly Appetite: Good Muscle strength/Tone: Normal Gait/Station: Normal Psychiatric Findings - Problem List ([place] 1, 2,3) (1) Substance induced mood disorder Current Visit: No Status: Acute (2) Substance-induced sleep disorder Current Visit: No Status: Acute (3) Alcohol dependence with uncomplicated withdrawal Current Visit: Yes Status: Chronic (4) Opioid dependence with withdrawal Current Visit: Yes Status: Chronic (5) Cocaine dependence Current Visit: Yes Status: Chronic Qualifiers: Substance use status: uncomplicated Qualified Code(s): F14.20 - Cocaine dependence, uncomplicated; F14.20 - Cocaine dependence, uncomplicated; F14.20 - Cocaine dependence, uncomplicated (6) Cannabis dependence, uncomplicated Current Visit: No Status: Chronic (7) Nicotine dependence Current Visit: Yes Status: Chronic Qualifiers: Nicotine product type: cigarettes Substance use status: in withdrawal Qualified Code(s): F17.213 - Nicotine dependence, cigarettes, with withdrawal; F17.213 - Nicotine dependence, cigarettes, with withdrawal - Initial Treatment Plan Initial Treatment Plan: 1) Start Ambien 10 mg po HS prn for insomnia. Benefits vs Risks of medication discussed with patient and he agreed to try it. 2) Continue inpatient detoxification
[2017-09-17 13:57] LABS: URINE LEUK ESTERASE Negative (NEGATIVE)
--- NOTE | 2017-09-17 14:00 | PN ---
[facility] CIWA - CIWA Score Nausea/Vomitin-No Nausea/No Vomiting Muscle Tremors: 3 Anxiety: 4-Mod. Anxious/Guarded Agitation: 3 Paroxysmal Sweats: 3 Orientation: 1-Uncertain about Date Tacttile Disturbances: 0-None Auditory Disturbances: 0-None Visual Disturbances: 0-None Headache: 0-None Present CIWA-Ar Total Score: 14 S COWS - Scale Resting Pulse: 0= [place] 80 or Below Sweatin=Flushed/Facial Moisture Restless Observation: 1= Difficult to Sit Still Pupil Size: 0= Normal to Room Light Bone or Joint Aches: 2= Severe Diffuse Aches Runny Nose/ Eye Tearin= Runny Nose/Eyes GI Upset > 30mins: 2= Nausea/Diarrhea Tremor Observation of Outstretched Hands: 2= Slight Tremor Visible Yawning Observation: 1= 1-2x During Session Anxiety or Irritability: 2=Irritable/Anxious Goose Flesh Skin: 0=Smooth Skin COWS Score: 14 [facility] Progress Note (SOAP) Subjective: Sweating,interrupted sleep,restless,tremors,anxiety Objective: 09/17/17 14:00 Vital Signs - 8 hr 09/17/17 10:00 Temperature 96.3 F L Pulse Rate 61 Respiratory 16 Rate Blood Pressure 121/62 Laboratory Last Values WBC 8.1 K/mm3 (4.0-10.0) 09/17/17 07:30 RBC 3.92 M/mm3 (4.00-5.60) L 09/17/17 07:30 Hgb 13.3 GM/dL (11.7-16.9) 09/17/17 07:30 Hct 39.7 % (35.4-49) 09/17/17 07:30 MCV 101.2 fl (80-96) H 09/17/17 07:30 MCH 33.9 pg (25.7-33.7) H 09/17/17 07:30 MCHC 33.5 g/dl (32.0-35.9) 09/17/17 07:30 RDW 14.4 % (11.9-15.9) 09/17/17 07:30 Plt Count 239 K/MM3 (134-434) 09/17/17 07:30 MPV 8.3 fl (7.5-11.1) 09/17/17 07:30 Sodium 138 mmol/L (136-145) 09/17/17 07:30 Potassium 4.2 mmol/L (3.5-5.1) 09/17/17 07:30 Chloride 104 mmol/L (98-107) 09/17/17 07:30 Carbon Dioxide 28 mmol/L (21-32) 09/17/17 07:30 Anion Gap 6 (8-16) L 09/17/17 07:30 BUN 20 mg/dL (7-18) H 09/17/17 07:30 Creatinine 0.8 mg/dL (0.7-1.3) 09/17/17 07:30 Creat Clearance w eGFR > 60 (>60) 09/17/17 07:30 Random Glucose 79 mg/dL (74-106) 09/17/17 07:30 Calcium 8.3 mg/dL (8.5-10.1) L 09/17/17 07:30 Total Bilirubin 0.2 mg/dL (0.2-1.0) 09/17/17 07:30 AST 13 U/L (15-37) L 09/17/17 07:30 ALT 12 U/L (12-78) 09/17/17 07:30 Alkaline Phosphatase 62 U/L (45-117) 09/17/17 07:30 Total Protein 6.1 g/dl (6.4-8.2) L 09/17/17 07:30 Albumin 3.4 g/dl (3.4-5.0) 09/17/17 07:30 Urine Color Yellow 09/16/17 22:45 Urine Appearance Clear 09/16/17 22:45 Urine pH 5.0 (5.0-8.0) 09/16/17 22:45 Urine Protein Negative (NEGATIVE) 09/16/17 22:45 Urine Glucose (UA) Negative (NEGATIVE) 09/16/17 22:45 Urine Ketones Trace (NEGATIVE) H 09/16/17 22:45 Urine Blood Negative (NEGATIVE) 09/16/17 22:45 Urine Nitrite Negative (NEGATIVE) 09/16/17 22:45 Urine Bilirubin Negative (NEGATIVE) 09/16/17 22:45 Urine Urobilinogen Negative mg/dL (0.2-1.0) 09/16/17 22:45 RPR Titer Nonreactive (NONREACTIVE) 09/17/17 07:30 labs noted Assessment: 09/17/17 14:00 Withdrawal sx. Plan: Continue detox
[2017-09-17] MEDS: chlordiazePOXIDE HCL 25 MG CAPSULE PO PRN (15:36)
[2017-09-17] MEDS: THIAMINE HCL 100 MG TABLET (FP) PO SCH (22:23)
[2017-09-17] MEDS: ZOLPIDEM TARTRATE 5 MG TABLET PO PRN (22:23)
[2017-09-18] MEDS: chlordiazePOXIDE HCL 25 MG CAPSULE PO SCH ×2 (06:05→10:12)
[2017-09-18] MEDS ORDERED: METHADONE HCL 5 MG TABLET (FOR DETOX USE ONLY) PO SCH (10:00)
[2017-09-18] MEDS: NICOTINE 21 MG/24 HOURS TOPICAL PATCH TD SCH (10:12)
[2017-09-18] MEDS: PRENATAL VITAMINS W/ FOLIC ACID TABLET (FP) PO SCH (10:12)
--- NOTE | 2017-09-18 12:27 | PN ---
S CIWA - CIWA Score Nausea/Vomitin Muscle Tremors: 3 Anxiety: 3 Agitation: 3 Paroxysmal Sweats: 2 Orientation: 0-Oriented Tacttile Disturbances: 1-Very Mild Itch/Numbness Auditory Disturbances: 1-Very Mild Visual Disturbances: 0-None Headache: 2-Mild CIWA-Ar Total Score: 18 [facility] COWS - Scale Resting Pulse: 0= [place] 80 or Below Sweatin= Chills/Flushing Restless Observation: 3= Extraneous Movement Pupil Size: 1= Pupils >than Normal Bone or Joint Aches: 2= Severe Diffuse Aches Runny Nose/ Eye Tearin= Nasal Congestion GI Upset > 30mins: 2= Nausea/Diarrhea Tremor Observation of Outstretched Hands: 2= Slight Tremor Visible Yawning Observation: 1= 1-2x During Session Anxiety or Irritability: 2=Irritable/Anxious Goose Flesh Skin: 0=Smooth Skin COWS Score: 15 S Progress Note (SOAP) Subjective: ALERT,IRRITABLE,ANXIOUS,INTERRUPTED SLEEP,PAIN IN THE BODY AND BACK Objective: 09/18/17 12:25 Vital Signs Temperature 96.6 F L 09/18/17 10:11 Pulse Rate 60 09/18/17 10:11 Respiratory Rate 20 09/18/17 10:11 Blood Pressure 103/75 09/18/17 10:11 O2 Sat by Pulse Oximetry (%) EKG NSR,NORMAL ECG 09/18/17 12:25 Laboratory Last Values WBC 8.1 K/mm3 (4.0-10.0) 09/17/17 07:30 RBC 3.92 M/mm3 (4.00-5.60) L 09/17/17 07:30 Hgb 13.3 GM/dL (11.7-16.9) 09/17/17 07:30 Hct 39.7 % (35.4-49) 09/17/17 07:30 MCV 101.2 fl (80-96) H 09/17/17 07:30 MCH 33.9 pg (25.7-33.7) H 09/17/17 07:30 MCHC 33.5 g/dl (32.0-35.9) 09/17/17 07:30 RDW 14.4 % (11.9-15.9) 09/17/17 07:30 Plt Count 239 K/MM3 (134-434) 09/17/17 07:30 MPV 8.3 fl (7.5-11.1) 09/17/17 07:30 Sodium 138 mmol/L (136-145) 09/17/17 07:30 Potassium 4.2 mmol/L (3.5-5.1) 09/17/17 07:30 Chloride 104 mmol/L (98-107) 09/17/17 07:30 Carbon Dioxide 28 mmol/L (21-32) 09/17/17 07:30 Anion Gap 6 (8-16) L 09/17/17 07:30 BUN 20 mg/dL (7-18) H 09/17/17 07:30 Creatinine 0.8 mg/dL (0.7-1.3) 09/17/17 07:30 Creat Clearance w eGFR > 60 (>60) 09/17/17 07:30 Random Glucose 79 mg/dL (74-106) 09/17/17 07:30 Calcium 8.3 mg/dL (8.5-10.1) L 09/17/17 07:30 Total Bilirubin 0.2 mg/dL (0.2-1.0) 09/17/17 07:30 AST 13 U/L (15-37) L 09/17/17 07:30 ALT 12 U/L (12-78) 09/17/17 07:30 Alkaline Phosphatase 62 U/L (45-117) 09/17/17 07:30 Total Protein 6.1 g/dl (6.4-8.2) L 09/17/17 07:30 Albumin 3.4 g/dl (3.4-5.0) 09/17/17 07:30 Urine Color Yellow 09/16/17 22:45 Urine Appearance Clear 09/16/17 22:45 Urine pH 5.0 (5.0-8.0) 09/16/17 22:45 Ur Specific [place] 1.020 (1.005-1.025) 09/16/17 22:45 Urine Protein Negative (NEGATIVE) 09/16/17 22:45 Urine Glucose (UA) Negative (NEGATIVE) 09/16/17 22:45 Urine Ketones Trace (NEGATIVE) H 09/16/17 22:45 Urine Blood Negative (NEGATIVE) 09/16/17 22:45 Urine Nitrite Negative (NEGATIVE) 09/16/17 22:45 Urine Bilirubin Negative (NEGATIVE) 09/16/17 22:45 Urine Urobilinogen Negative mg/dL (0.2-1.0) 09/16/17 22:45 Ur Leukocyte Esterase Negative (NEGATIVE) 09/16/17 22:45 RPR Titer Nonreactive (NONREACTIVE) 09/17/17 07:30 Assessment: 09/18/17 12:26 WITHDRAWAL SYMPTOM Plan: CONTINUE DETOX,MEDICATION ADJUST
[2017-09-18] MEDS: hydrOXYzine PAMOATE 50 MG CAPSULE (FP) PO PRN (14:22)
[2017-09-18] MEDS: chlordiazePOXIDE HCL 25 MG CAPSULE PO PRN (14:22)
[2017-09-18] MEDS: chlordiazePOXIDE 5 MG CAPSULE PO SCH ×2 (17:50→22:30)
[2017-09-18] MEDS: ZOLPIDEM TARTRATE 5 MG TABLET PO PRN (22:30)
[2017-09-18] MEDS: THIAMINE HCL 100 MG TABLET (FP) PO SCH (22:30)
[2017-09-19] MEDS: chlordiazePOXIDE 5 MG CAPSULE PO SCH ×2 (05:50→11:11)
[2017-09-19] MEDS ORDERED: METHADONE HCL 10 MG TABLET (FOR DETOX USE ONLY) PO ONE (10:00)
[2017-09-19] MEDS: hydrOXYzine PAMOATE 50 MG CAPSULE (FP) PO PRN (11:11)
[2017-09-19] MEDS: NICOTINE 21 MG/24 HOURS TOPICAL PATCH TD SCH (11:11)
[2017-09-19] MEDS: PRENATAL VITAMINS W/ FOLIC ACID TABLET (FP) PO SCH (11:12)
--- NOTE | 2017-09-19 11:13 | PN ---
S Progress Note (SOAP) Subjective: alert,irritable,anxious,interrupted sleep, Objective: 09/19/17 11:11 Vital Signs Temperature 96 F L 09/19/17 10:20 Pulse Rate 67 09/19/17 10:20 Respiratory Rate 18 09/19/17 10:20 Blood Pressure 107/73 09/19/17 10:20 O2 Sat by Pulse Oximetry (%) Assessment: 09/19/17 11:12 withdrawal symptom Plan: continue detox,discharge in am
[2017-09-19] MEDS: chlordiazePOXIDE HCL 10 MG CAPSULE PO SCH ×2 (17:59→22:41)
[2017-09-19] MEDS: diphenhydrAMINE HCL 50 MG CAPSULE PO PRN (22:41)
[2017-09-19] MEDS: THIAMINE HCL 100 MG TABLET (FP) PO SCH (22:41)
[2017-09-19] MEDS: ZOLPIDEM TARTRATE 5 MG TABLET PO PRN (22:44)
[2017-09-20] MEDS: chlordiazePOXIDE HCL 10 MG CAPSULE PO SCH ×2 (06:00→09:30)
[2017-09-20] MEDS ORDERED: METHADONE HCL 5 MG TABLET (FOR DETOX USE ONLY) PO ONE (06:00)
--- NOTE | 2017-09-20 09:31 | DS ---
[facility] Detox Discharge Summary Admission Date: 09/16/17 Discharge Date: 09/20/17 - History Present History: Alcohol Dependence, Cocaine Dependence, Opioid Dependence Additional Comments: follow up with after care program as arrangement Pertinent Past History: nicotine dependence weight loss - Physical Exam Results Vital Signs: Vital Signs Temperature 97 F L 09/20/17 06:35 Pulse Rate 62 09/20/17 06:35 Respiratory Rate 16 09/20/17 06:35 Blood Pressure 113/66 09/20/17 06:35 O2 Sat by Pulse Oximetry (%) Pertinent Admission Physical Exam Findings: withdrawal symptom - Treatment Hospital Course: Detox Protocol Followed, Detoxed Safely, Responded well, Discharged Condition Good - Medication Discharge Medications: Ambulatory Orders NK [No Known Home Medication] 06/06/17 - Diagnosis (1) Opioid dependence with withdrawal Current Visit: Yes Status: Chronic (2) Alcohol dependence with uncomplicated withdrawal Current Visit: Yes Status: Chronic (3) Cocaine dependence Current Visit: Yes Status: Chronic Qualifiers: Substance use status: uncomplicated Qualified Code(s): F14.20 - Cocaine dependence, uncomplicated; F14.20 - Cocaine dependence, uncomplicated; F14.20 - Cocaine dependence, uncomplicated (4) Nicotine dependence Current Visit: Yes Status: Chronic Qualifiers: Nicotine product type: cigarettes Substance use status: in withdrawal Qualified Code(s): F17.213 - Nicotine dependence, cigarettes, with withdrawal; F17.213 - Nicotine dependence, cigarettes, with withdrawal (5) Weight decreased Current Visit: Yes Status: Chronic (6) Drug-induced mood disorder Current Visit: No Status: Acute (7) Substance induced mood disorder Current Visit: No Status: Acute (8) Substance-induced sleep disorder Current Visit: No Status: Acute (9) Tinea pedis Current Visit: No Status: Acute Qualifiers: Laterality: bilateral Qualified Code(s): B35.3 - Tinea pedis; B35.3 - Tinea pedis - AMA Did Patient Leave Against Medical Advice: No
--- NOTE | 2017-09-20 09:35 | PN ---
[facility] Progress Note Note: cyst right elbow 3 month ,brigid bandage right elbow for protection,follow up with clinic at [place]
[2017-09-20] MEDS: PRENATAL VITAMINS W/ FOLIC ACID TABLET (FP) PO SCH (10:00)
[2017-09-20] MEDS ORDERED: METHADONE HCL 10 MG TABLET (FOR DETOX USE ONLY) PO SCH (10:00)
[2017-09-20] MEDS: NICOTINE 21 MG/24 HOURS TOPICAL PATCH TD SCH (10:00)
[2017-09-20 11:14] VITALS: BP 136/82; PULSE 78; TEMP 98.9
[2017-09-21] MEDS ORDERED: METHADONE HCL 5 MG TABLET (FOR DETOX USE ONLY) PO SCH (06:00)
== END 2017-09-20 09:54 | disposition home or self-care (01) | DRG 773 ==
LOC: YASAS 12:12 → Y6N 14:04
PROVIDERS: ADMIT Internal Medicine; ATTEND Internal Medicine
PROC: HZ2ZZZZ Detoxification Services for Substance Abuse Treatment (ICD-10-PCS; principal; 2017-09-16)
DX: F11.23 Opioid dependence with withdrawal (principal); F10.230 Alcohol dependence with withdrawal, uncomplicated; F14.20 Cocaine dependence, uncomplicated; F12.20 Cannabis dependence, uncomplicated; F17.213 Nicotine dependence, cigarettes, with withdrawal; F19.24 Other psychoactive substance dependence with psychoactive substance-induced mood disorder; F19.282 Other psychoactive substance dependence with psychoactive substance-induced sleep disorder; L72.8 Other follicular cysts of the skin and subcutaneous tissue; B35.3 Tinea pedis; Z87.898 Personal history of other specified conditions
CPT/HCPCS: 36415; 80053; 81003; 85027; 86593; 93005; 93010

== ENCOUNTER 2018-05-08 19:12 | Inpatient (IN) | payer OTHER ==
[2018-05-08 20:38] VITALS: BMI 21.6
--- NOTE | 2018-05-08 22:05 | HP ---
Admission [facility] Chief Complaint: heroin, THC, cocaine , alcohol rehab Allergies/Adverse Reactions: Allergies Allergy/AdvReac Type Severity Reaction Status Date / Time No Known Allergies Allergy Verified 09/16/17 16:49 History of Present Illness: Patient is a 52 yo male with hx of nicotine, heroin (paransal), THC, and cocaine dependence is here for rehabilitation. Completed detox at [facility] 05/03/18 -05/08/18. MMTP at [facility] on methadone 40mg, last medicated today. Denies suicidal / homicidal ideation or hx suicide attempt. Longest period of sobriety 2 years. Exam Limitations: No Limitations - Ebola screening Have you traveled outside of the country in the last 21 days: No Have you had contact with anyone from an Ebola affected area: No Have you been sick,other than usual withdrawal symptoms: No Do you have a fever: No - Review of Systems Constitutional: No Symptoms Reported EENT: reports: Other (uses reading glasses) Cardiac: reports: No Symptoms Reported GI: reports: No Symptoms Reported : reports: No Symptoms Reported Musculoskeletal: reports: Back Pain (right lower back) Integumentary: reports: No Symptoms Reported Neuro: reports: No Symptoms reported Endocrine: reports: Increased Thirst Hematology: reports: No Symptoms Reported Psychiatric: reports: Orientated x3, Anxious Other Systems: Reviewed and Negative Patient History - Patient Medical History Hx Anemia: No Hx Asthma: No Hx Chronic Obstructive Pulmonary Disease (COPD): No Hx Cancer: No Hx Cardiac Disorders: No Hx Congestive Heart Failure: No Hx Hypertension: No Hx Hypercholesterolemia: No Hx Pacemaker: No HX Cerebrovascular Accident: No Hx Seizures: No Hx Dementia: No Hx Diabetes: No Hx Gastrointestinal Disorders: No Hx Liver Disease: No Hx Genitourinary Disorders: No Hx Sexually Transmitted Disorders: No Hx Renal Disease (ESRD): No Hx Thyroid Disease: No Hx Human Immunodeficiency Virus (HIV): No Hx Hepatitis C: No Hx Depression: Yes Hx Suicide Attempt: No Hx Bipolar Disorder: No Hx Schizophrenia: No - Patient Surgical History Past Surgical History: Yes Hx Neurologic Surgery: No Hx Cataract Extraction: No Hx Cardiac Surgery: No Hx Lung Surgery: No Hx Breast Surgery: No Hx Breast Biopsy: No Hx Abdominal Surgery: Yes (left inguinal hernia repair age 7) Hx Appendectomy: No Hx Cholecystectomy: No Hx Genitourinary Surgery: No Hx Section: No Hx Orthopedic Surgery: No Other Surgical History: left inguinal hernia repair Anesthesia Reaction: No - PPD History Date: 06/08/17 Results: 0 MM - Smoking Cessation Smoking history: Current every day smoker Have you smoked in the past 12 months: Yes Aproximately how many cigarettes per day: 15 Cigars Per Day: 0 Hx Chewing Tobacco Use: No Initiated information on smoking cessation: Yes 'Breaking Loose' booklet given: 05/08/18 - Substance & Tx. History Hx Alcohol Use: Yes Hx Substance Use: Yes Substance Use Type: Alcohol, Cocaine, Heroin, Marijuana Hx Substance Use Treatment: Yes (ompleted detox at [facility] 05/03/18 -05/08/18.) Family Disease History - Family Disease History Family Disease History: Other: Father (, parkinsons dx), Mother (AIDS , hx ivdu), Brother (1 - living - healthy), Sister (3 - living- healthy) Admission Physical Exam [facility] - Vital Signs Vital Signs: Vital Signs - 24 hr 05/08/18 20:35 Temperature 97.9 F Pulse Rate 59 L Respiratory 18 Rate Blood Pressure 138/78 - Physical General Appearance: Yes: No Apparent Distress, Nourished, Appropriately Dressed , Anxious HEENTM: Yes: EOMI, Hearing grossly Normal, Normal ENT Inspection, Normal Voice, Pharynx Normal, Tm's normal, Other (poor dentition) Respiratory: Yes: Chest Non-Tender, Lungs Clear, Normal Breath Sounds, No Respiratory Distress, No Accessory Muscle Use Neck: Yes: Within Normal Limits Breast: Yes: Breast Exam Deferred Cardiology: Yes: Regular Rhythm, Regular Rate Genitourinary: Yes: Within Normal Limits Back: Yes: Normal Inspection Musculoskeletal: Yes: full range of Motion, Gait Steady, Pelvis Stable Extremities: Yes: Normal Capillary Refill, Normal Inspection, Normal Range of Motion, Non-Tender 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 intact, Fully Oriented, Alert, Motor Strength 5/5, Normal Mood/Affect Integumentary: Yes: Normal Color, Warm, Moist Lymphatic: Yes: Within Normal Limits - Diagnostic (1) Opioid dependence on agonist therapy Current Visit: Yes Status: Acute Comment: On methadone 40mg dose pending verification (2) Cannabis dependence, uncomplicated Current Visit: Yes Status: Chronic (3) Cocaine dependence Current Visit: Yes Status: Chronic Qualifiers: Substance use status: uncomplicated Qualified Code(s): F14.20 - Cocaine dependence, uncomplicated (4) Nicotine dependence Current Visit: Yes Status: Chronic Qualifiers: Nicotine product type: cigarettes Substance use status: in withdrawal Qualified Code(s): F17.213 - Nicotine dependence, cigarettes, with withdrawal [facility] Breath Alcohol Content Breath Alcohol Content: 0 Urine Drug Screen - Results Drug Screen Negative: Yes Inpatient Rehab Admission - Initial Determination Are CD services needed?: Yes Free of communicable disease: Yes Not in need of hospitalization: Yes - Rehab Admission Criteria Previous failed treatment: Yes Poor recovery environment: Yes Comorbidities: Yes Lacks judgement: Yes Patient is meeting Inpatient Rehab admission criteria:: Yes
[2018-05-08] MEDS ORDERED: P-EPHED 60MG/TRIPROLIDI 2.5MG TABLET PO PRN (22:11)
[2018-05-08] MEDS ORDERED: MENTHOL/PHENOL 1 EACH UD MM PRN (22:11)
[2018-05-08] MEDS ORDERED: LOPERAMIDE HCL 2 MG CAPSULE PO PRN (22:11)
[2018-05-08] MEDS ORDERED: MAG HYDROX/AL HYDROX/SIMETH 30 ML UNIT-DOSE CUP PO PRN (22:11)
[2018-05-08] MEDS ORDERED: guaiFENesin/D-METHORPHAN HB 10 ML UNIT-DOSE CUPS PO PRN (22:11)
[2018-05-08] MEDS ORDERED: ACETAMINOPHEN 325 MG TABLET (FP) PO PRN (22:11)
[2018-05-08] MEDS ORDERED: MAGNESIUM HYDROX 2400MG/30ML ORAL SUSPENSION 30 ML CUP PO PRN (22:11)
[2018-05-08] MEDS ORDERED: MAGNESIUM CITRATE 300 ML BOTTLE PO PRN (22:11)
[2018-05-08] MEDS ORDERED: NICOTINE POLACRILEX 2 MG GUM BC PRN (22:11)
[2018-05-09] MEDS: MELATONIN 5 MG TABLETS PO PRN ×2 (01:24→21:26)
[2018-05-09] MEDS: hydrOXYzine PAMOATE 50 MG CAPSULE (FP) PO PRN ×2 (01:24→21:25)
--- NOTE | 2018-05-09 06:28 | HP ---
Psychiatrist Admission - Data Date of interview: 05/09/18 Admission source: [facility] detox Identifying data: This is the first [facility] admission for this 52 years old single male, unemployed on food stamp, homeless Medical History: Significant for history of surgery for left inguinal hernia repair. Smokes 15 cigarettes daily Psychiatric History: Denies history of previous psychiatric hospitalization or suicidal attempt. However, reports receiving psychiatric outpatient treatment for depression/anxiety at [facility] in the past( 2012). Claims that he was prescribed Klonopin and Suboxone. He attended that clinic for 8-9 months and stopped after the clinic was closed for medicaid fraud At present, reports feeling depressed and sleeping poorly Physical/Sexual Abuse/Trauma History: Denies history of verbal, physical or sexual abuse as well as DV relationship. Additional Comment: Reports history of 4-5 previous arrests including 4 felony convictions. Denies being on parole/probation at present Vital Signs: Vital Signs - 24 hr 05/08/18 05/09/18 20:35 03:30 Temperature 97.9 F Pulse Rate 59 L Respiratory 18 16 Rate Blood Pressure 138/78 Allergies/Adverse Reactions: Allergies Allergy/AdvReac Type Severity Reaction Status Date / Time No Known Allergies Allergy Verified 05/08/18 22:43 Date of last physical exam: 05/08/18 Concur with the findings of this exam: Yes - Substance Abuse/Tx History Hx Alcohol Use: Yes Hx Substance Use: Yes Substance Use Type: Alcohol (Started drinking alcohol at age 15, consumes 3 pints of liquor 3-6 times weekly. Last drank on 05/02/18), Cocaine (Started using cocaine at age 35, consumes 3 bags 3-6 times weekly. Last used on 05/02/18), Heroin (Started using heroin at age 35, consumes 2-3 bags 3-6 times weekly. Last used on 05/02/18), Marijuana (Started smoking marijuana at age 17, consumes $ 10-20 1-2 times weekly. Last smoked on 04/30/18) Hx Substance Use Treatment: Yes (7 previous inpt detox admission @ [facility]) Mental Status Exam - Mental Status Exam Alert and Oriented to: Time, Place, Person Cognitive Function: Fair Patient Appearance: Well Groomed Mood: Depressed, Anxious Affect: Normal Range Patient Behavior: Cooperative Speech Pattern: Clear Thought Process: Intact, Goal Oriented Thought Disorder: Not Present Hallucinations: Denies Suicidal Ideation: Denies Homicidal Ideation: Denies Insight/Judgement: Fair Sleep: Poorly Appetite: Fair Muscle strength/Tone: Normal Gait/Station: Normal Psychiatric Findings - Problem List ([place] 1, 2,3) (1) Alcohol dependence Current Visit: Yes Status: Acute (2) Cocaine dependence Current Visit: Yes Status: Acute Qualifiers: Substance use status: uncomplicated Qualified Code(s): F14.20 - Cocaine dependence, uncomplicated (3) Cannabis dependence Current Visit: Yes Status: Acute (4) Opioid dependence on agonist therapy Current Visit: Yes Status: Chronic Comment: On methadone 40mg dose pending verification (5) Nicotine dependence Current Visit: Yes Status: Chronic Qualifiers: Nicotine product type: cigarettes Substance use status: in withdrawal Qualified Code(s): F17.213 - Nicotine dependence, cigarettes, with withdrawal (6) Substance induced mood disorder Current Visit: Yes Status: Acute (7) Substance-induced sleep disorder Current Visit: Yes Status: Acute - Initial Treatment Plan Initial Treatment Plan: Monitor progress
[2018-05-09] MEDS ORDERED: METHADONE HCL 40 MG DISPERSABLE TABLET PO ONE (09:35)
--- NOTE | 2018-05-09 09:39 | EKG ---
Test Reason : Blood Pressure : / mmHG Vent. Rate : 064 BPM Atrial Rate : 064 BPM P-R Int : 114 ms QRS Dur : 084 ms QT Int : 392 ms P-R-T Axes : 067 081 057 degrees QTc Int : 404 ms NORMAL SINUS RHYTHM POSSIBLE LEFT ATRIAL ENLARGEMENT BORDERLINE ECG WHEN COMPARED WITH ECG OF 16-SEP-2017 16:46, NO SIGNIFICANT CHANGE WAS FOUND Confirmed by NELI ERNST, LOTUS ([id number]) on 05/09/2018 9:38:45 AM Referred By: Confirmed By:LOTUS QUINTEROS MD
[2018-05-09 09:41] LABS: URINE APPEARANCE CLEAR; URINE BILIRUBIN NEGATIVE (<2.0 mg/dL); URINE COLOR STRAW; URINE GLUCOSE (UA) NEGATIVE (NEGATIVE); URINE KETONE NEGATIVE (NEGATIVE); URINE LEUK ESTERASE NEGATIVE (NEGATIVE); URINE NITRITE NEGATIVE (NEGATIVE); URINE PROTEIN NEGATIVE (NEGATIVE); URINE UROBILINOGEN NEGATIVE mg/dL (0.2-1.0)
[2018-05-09] MEDS: NICOTINE 14 MG/24 HOURS TOPICAL PATCH TD SCH (09:57)
[2018-05-09] MEDS: PRENATAL VITAMINS W/ FOLIC ACID TABLET (FP) PO SCH (09:57)
[2018-05-09 10:12] LABS: CHLORIDE 101 mmol/L (98-107); HEMATOCRIT 42.2 % (35.4-49); HEMOGLOBIN 14.1 GM/dL (11.7-16.9); MCH 33.3 pg (25.7-33.7); MCHC 33.5 g/dl (32.0-35.9); MEAN CELL VOLUME 99.2 fl (80-96); MEAN PLT VOLUME 8.1 fl (7.5-11.1); PLATELET COUNT 283 K/MM3 (134-434); POTASSIUM 5.1 mmol/L (3.5-5.1); RBC 4.25 M/mm3 (4.00-5.60); RDW 15.3 % (11.9-15.9); SODIUM 139 mmol/L (136-145); WHITE BLOOD COUNT 7.7 K/mm3 (4.0-10.0)
--- NOTE | 2018-05-09 10:30 | PN ---
[facility] Progress Note Note: CALLED BY NURSE HANDY RE: PT'S METHADONE DOSE REORDERING. PLAN: DOSE VERIFIED BY NURSE METHADONE 40 MG PO DAILY REORDERED. LAST DOSE 05/08/18
[2018-05-09 11:20] LABS: ALBUMIN 3.7 g/dl (3.4-5.0); ALK PHOS 61 U/L (45-117); ANION GAP 8 (8-16); BILIRUBIN,TOTAL 0.2 mg/dL (0.2-1.0); BLOOD UREA NITROGEN 17 mg/dL (7-18); CALCIUM 9.4 mg/dL (8.5-10.1); CO2 30 mmol/L (21-32); CREATININE 0.9 mg/dL (0.7-1.3); GLUCOSE,RANDOM 123 mg/dL (74-106); SGOT/AST 22 U/L (15-37); SGPT/ALT 21 U/L (12-78); TOT PROT 7.1 g/dl (6.4-8.2)
[2018-05-09] MEDS: IBUPROFEN 400 MG TABLET (FP) PO PRN (15:00)
[2018-05-09] MEDS: THIAMINE HCL 100 MG TABLET (FP) PO SCH (21:25)
[2018-05-10] MEDS: NICOTINE 14 MG/24 HOURS TOPICAL PATCH TD SCH (10:31)
[2018-05-10] MEDS: PRENATAL VITAMINS W/ FOLIC ACID TABLET (FP) PO SCH (10:32)
[2018-05-10] MEDS: METHADONE HCL 40 MG DISPERSABLE TABLET PO SCH (11:01)
--- NOTE | 2018-05-10 15:09 | PN ---
S Progress Note Note: Patient c/o of right elbow pain, back pain radiating to the right hip. Denies new onset incontinence, paresthesia, or decrease ROM. Vital Signs Temperature 98.1 F 05/09/18 07:00 Pulse Rate 68 05/09/18 07:00 Respiratory Rate 18 05/10/18 00:30 Blood Pressure 115/67 05/09/18 07:00 O2 Sat by Pulse Oximetry (%) Laboratory Last Values WBC 7.7 K/mm3 (4.0-10.0) 05/09/18 08:30 RBC 4.25 M/mm3 (4.00-5.60) 05/09/18 08:30 Hgb 14.1 GM/dL (11.7-16.9) 05/09/18 08:30 Hct 42.2 % (35.4-49) 05/09/18 08:30 MCV 99.2 fl (80-96) H 05/09/18 08:30 MCH 33.3 pg (25.7-33.7) 05/09/18 08:30 MCHC 33.5 g/dl (32.0-35.9) 05/09/18 08:30 RDW 15.3 % (11.9-15.9) 05/09/18 08:30 Plt Count 283 K/MM3 (134-434) 05/09/18 08:30 MPV 8.1 fl (7.5-11.1) 05/09/18 08:30 Sodium 139 mmol/L (136-145) 05/09/18 08:30 Potassium 5.1 mmol/L (3.5-5.1) D 05/09/18 08:30 Chloride 101 mmol/L (98-107) 05/09/18 08:30 Carbon Dioxide 30 mmol/L (21-32) 05/09/18 08:30 Anion Gap 8 (8-16) 05/09/18 08:30 BUN 17 mg/dL (7-18) 05/09/18 08:30 Creatinine 0.9 mg/dL (0.7-1.3) 05/09/18 08:30 Creat Clearance w eGFR > 60 (>60) 05/09/18 08:30 POC Glucometer 128 UNITS (80-120) 05/10/18 07:14 Random Glucose 123 mg/dL (74-106) H D 05/09/18 08:30 Calcium 9.4 mg/dL (8.5-10.1) 05/09/18 08:30 Total Bilirubin 0.2 mg/dL (0.2-1.0) 05/09/18 08:30 AST 22 U/L (15-37) D 05/09/18 08:30 ALT 21 U/L (12-78) D 05/09/18 08:30 Alkaline Phosphatase 61 U/L (45-117) 05/09/18 08:30 Total Protein 7.1 g/dl (6.4-8.2) 05/09/18 08:30 Albumin 3.7 g/dl (3.4-5.0) 05/09/18 08:30 Urine Color Straw 05/09/18 08:30 Urine Appearance Clear 05/09/18 08:30 Urine pH 6.0 (5.0-8.0) 05/09/18 08:30 Ur Specific [place] 1.012 (1.001-1.035) 05/09/18 08:30 Urine Protein Negative (NEGATIVE) 05/09/18 08:30 Urine Glucose (UA) Negative (NEGATIVE) 05/09/18 08:30 Urine Ketones Negative (NEGATIVE) 05/09/18 08:30 Urine Blood Negative (NEGATIVE) 05/09/18 08:30 Urine Nitrite Negative (NEGATIVE) 05/09/18 08:30 Urine Bilirubin Negative (<2.0 mg/dL) 05/09/18 08:30 Urine Urobilinogen Negative mg/dL (0.2-1.0) 05/09/18 08:30 Ur Leukocyte Esterase Negative (NEGATIVE) 05/09/18 08:30 RPR Titer Nonreactive (NONREACTIVE) 05/09/18 08:30 HIV 1&2 Antibody Screen Negative 05/09/18 08:30 HIV P24 Antigen Negative 05/09/18 08:30 Labs reviewed A/P Patient AOx3 in no apparent distress no adventitious breath sounds skin intact, no edema or erythema FULL ROM , + low right sided back pain + right hip pain + right elbow pain , no joint effusion or erythema Patient ambulating in unit no neuro symptoms - low back w/ right sided sciatica - right elbow pain Plan: lidocaine patch qd for back PRN flexeril 5 mg TID ibuprofen 400 mg PRN increase fluids ambulate continue to monitor
[2018-05-10] MEDS: CYCLOBENZAPRINE HCL 5 MG TABLET PO SCH (15:43)
[2018-05-10] MEDS: LIDOCAINE 5% TOPICAL PATCH TP SCH (15:43)
[2018-05-10] MEDS: LIDOCAINE PATCH REMOVAL MC SCH (22:15)
[2018-05-10] MEDS: THIAMINE HCL 100 MG TABLET (FP) PO SCH (22:15)
[2018-05-10] MEDS: TOLNAFTATE 1% CREAM 15 GM TUBE TP SCH (22:16)
[2018-05-11] MEDS: METHADONE HCL 40 MG DISPERSABLE TABLET PO SCH (06:02)
[2018-05-11] MEDS: CYCLOBENZAPRINE HCL 5 MG TABLET PO SCH (09:39)
[2018-05-11] MEDS: PRENATAL VITAMINS W/ FOLIC ACID TABLET (FP) PO SCH (09:39)
[2018-05-11] MEDS: LIDOCAINE 5% TOPICAL PATCH TP SCH (09:39)
[2018-05-11] MEDS: NICOTINE 14 MG/24 HOURS TOPICAL PATCH TD SCH (09:39)
[2018-05-11] MEDS: TOLNAFTATE 1% CREAM 15 GM TUBE TP SCH ×2 (09:40→21:46)
[2018-05-11] MEDS: THIAMINE HCL 100 MG TABLET (FP) PO SCH (21:46)
[2018-05-11] MEDS: LIDOCAINE PATCH REMOVAL MC SCH (21:46)
[2018-05-11] MEDS: MELATONIN 5 MG TABLETS PO PRN (21:47)
[2018-05-12] MEDS: METHADONE HCL 40 MG DISPERSABLE TABLET PO SCH (06:37)
[2018-05-12] MEDS: CYCLOBENZAPRINE HCL 5 MG TABLET PO SCH (09:30)
[2018-05-12] MEDS: NICOTINE 14 MG/24 HOURS TOPICAL PATCH TD SCH (09:30)
[2018-05-12] MEDS: PRENATAL VITAMINS W/ FOLIC ACID TABLET (FP) PO SCH (09:30)
[2018-05-12] MEDS: TOLNAFTATE 1% CREAM 15 GM TUBE TP SCH ×2 (09:30→23:15)
[2018-05-12] MEDS: LIDOCAINE 5% TOPICAL PATCH TP SCH (09:30)
[2018-05-12] MEDS: THIAMINE HCL 100 MG TABLET (FP) PO SCH (21:47)
[2018-05-12] MEDS: MELATONIN 5 MG TABLETS PO PRN (21:48)
[2018-05-12] MEDS: LIDOCAINE PATCH REMOVAL MC SCH (23:15)
[2018-05-13] MEDS: METHADONE HCL 40 MG DISPERSABLE TABLET PO SCH (06:30)
[2018-05-13] MEDS ORDERED: PT OWN MED DRAWER 7, Y5N ONE ×2 (08:45→20:29)
[2018-05-13] MEDS: CYCLOBENZAPRINE HCL 5 MG TABLET PO SCH (09:50)
[2018-05-13] MEDS: LIDOCAINE 5% TOPICAL PATCH TP SCH (09:50)
[2018-05-13] MEDS: NICOTINE 14 MG/24 HOURS TOPICAL PATCH TD SCH (09:50)
[2018-05-13] MEDS: TOLNAFTATE 1% CREAM 15 GM TUBE TP SCH ×2 (09:50→21:43)
[2018-05-13] MEDS: PRENATAL VITAMINS W/ FOLIC ACID TABLET (FP) PO SCH (09:50)
[2018-05-13] MEDS: LIDOCAINE PATCH REMOVAL MC SCH (21:43)
[2018-05-13] MEDS: MELATONIN 5 MG TABLETS PO PRN (21:43)
[2018-05-13] MEDS: THIAMINE HCL 100 MG TABLET (FP) PO SCH (21:44)
[2018-05-14] MEDS: METHADONE HCL 40 MG DISPERSABLE TABLET PO SCH (06:05)
[2018-05-14] MEDS ORDERED: PT OWN MED DRAWER 7, Y5N ONE ×2 (08:51→20:24)
[2018-05-14] MEDS: CYCLOBENZAPRINE HCL 5 MG TABLET PO SCH (10:11)
[2018-05-14] MEDS: LIDOCAINE 5% TOPICAL PATCH TP SCH (10:11)
[2018-05-14] MEDS: PRENATAL VITAMINS W/ FOLIC ACID TABLET (FP) PO SCH (10:11)
[2018-05-14] MEDS: NICOTINE 14 MG/24 HOURS TOPICAL PATCH TD SCH (10:11)
[2018-05-14] MEDS: TOLNAFTATE 1% CREAM 15 GM TUBE TP SCH ×2 (10:12→21:26)
[2018-05-14] MEDS: MELATONIN 5 MG TABLETS PO PRN (21:26)
[2018-05-14] MEDS: THIAMINE HCL 100 MG TABLET (FP) PO SCH (21:26)
[2018-05-14] MEDS: LIDOCAINE PATCH REMOVAL MC SCH (21:26)
[2018-05-15] MEDS: IBUPROFEN 400 MG TABLET (FP) PO PRN (06:13)
[2018-05-15] MEDS: METHADONE HCL 40 MG DISPERSABLE TABLET PO SCH (06:14)
[2018-05-15] MEDS: PRENATAL VITAMINS W/ FOLIC ACID TABLET (FP) PO SCH (10:07)
[2018-05-15] MEDS: LIDOCAINE 5% TOPICAL PATCH TP SCH (10:07)
[2018-05-15] MEDS: CYCLOBENZAPRINE HCL 5 MG TABLET PO SCH (10:07)
[2018-05-15] MEDS: NICOTINE 14 MG/24 HOURS TOPICAL PATCH TD SCH (10:07)
[2018-05-15] MEDS: TOLNAFTATE 1% CREAM 15 GM TUBE TP SCH ×2 (10:09→21:24)
[2018-05-15] MEDS: hydrOXYzine PAMOATE 50 MG CAPSULE (FP) PO PRN (21:23)
[2018-05-15] MEDS: MELATONIN 5 MG TABLETS PO PRN (21:23)
[2018-05-15] MEDS: THIAMINE HCL 100 MG TABLET (FP) PO SCH (21:23)
[2018-05-15] MEDS: LIDOCAINE PATCH REMOVAL MC SCH (21:24)
[2018-05-16] MEDS ORDERED: METHADONE HCL 40 MG DISPERSABLE TABLET PO SCH (06:00)
[2018-05-16] MEDS: CYCLOBENZAPRINE HCL 5 MG TABLET PO SCH (10:02)
[2018-05-16] MEDS: PRENATAL VITAMINS W/ FOLIC ACID TABLET (FP) PO SCH (10:02)
[2018-05-16] MEDS: NICOTINE 14 MG/24 HOURS TOPICAL PATCH TD SCH (10:03)
[2018-05-16] MEDS: TOLNAFTATE 1% CREAM 15 GM TUBE TP SCH ×2 (10:03→22:09)
[2018-05-16] MEDS: LIDOCAINE 5% TOPICAL PATCH TP SCH (10:03)
--- NOTE | 2018-05-16 13:43 | PN ---
[facility] Progress Note Note: PATIENT HAS REQUESTED TO DECREASE METHADONE DOSE FROM 40MG TO 35MG. STATED HE FEELS "OUT OF IT AND TIRED WITH CURRENT DOSE OF METHADONE". PATIENT EDUCATED REGARDING POSSIBLE SYMPTOMS OF DOSE REDUCTION (HEADACHE AND BODY ACHES) BUT CONTINUES TO REQUEST DECREASE OF DOSE. WILL ORDER METHADONE 35MG DAILY STARTING TOMORROW MORNING. CONTINUE TO MONITOR CLINICALLY.
[2018-05-16] MEDS: THIAMINE HCL 100 MG TABLET (FP) PO SCH (22:08)
[2018-05-16] MEDS: MELATONIN 5 MG TABLETS PO PRN (22:08)
[2018-05-16] MEDS: LIDOCAINE PATCH REMOVAL MC SCH (22:09)
[2018-05-17] MEDS ORDERED: METHADONE HCL 10 MG TABLET ONE (05:59)
[2018-05-17] MEDS ORDERED: METHADONE HCL 5 MG TABLET ONE (05:59)
[2018-05-17] MEDS ORDERED: METHADONE HCL 40 MG DISPERSABLE TABLET PO SCH (06:00)
[2018-05-17] MEDS: METHADONE 30 MG, METHADONE 5 MG PO SCH (06:50)
[2018-05-17] MEDS: CYCLOBENZAPRINE HCL 5 MG TABLET PO SCH (09:55)
[2018-05-17] MEDS: NICOTINE 14 MG/24 HOURS TOPICAL PATCH TD SCH (09:55)
[2018-05-17] MEDS: LIDOCAINE 5% TOPICAL PATCH TP SCH (09:55)
[2018-05-17] MEDS: PRENATAL VITAMINS W/ FOLIC ACID TABLET (FP) PO SCH (09:55)
[2018-05-17] MEDS: TOLNAFTATE 1% CREAM 15 GM TUBE TP SCH ×2 (09:56→21:29)
--- NOTE | 2018-05-17 14:27 | PN ---
BHS Progress Note Note: c/o constipation. Vital Signs Temperature 97.7 F 05/17/18 07:01 Pulse Rate 67 05/17/18 07:01 Respiratory Rate 18 05/17/18 07:01 Blood Pressure 115/68 05/17/18 07:01 O2 Sat by Pulse Oximetry (%) colace 100 mg TID increase fluids ambulate continue to monitor
[2018-05-17] MEDS: DOCUSATE SODIUM 100 MG CAPSULE (FP) PO SCH ×2 (14:55→21:28)
[2018-05-17] MEDS: THIAMINE HCL 100 MG TABLET (FP) PO SCH (21:28)
[2018-05-17] MEDS: MELATONIN 5 MG TABLETS PO PRN (21:28)
[2018-05-17] MEDS: LIDOCAINE PATCH REMOVAL MC SCH (21:28)
[2018-05-18] MEDS ORDERED: METHADONE HCL 10 MG TABLET ONE (04:17)
[2018-05-18] MEDS ORDERED: METHADONE HCL 5 MG TABLET ONE (04:18)
[2018-05-18] MEDS: DOCUSATE SODIUM 100 MG CAPSULE (FP) PO SCH ×3 (07:01→21:49)
[2018-05-18] MEDS: METHADONE 30 MG, METHADONE 5 MG PO SCH (07:01)
[2018-05-18] MEDS: NICOTINE 14 MG/24 HOURS TOPICAL PATCH TD SCH (10:03)
[2018-05-18] MEDS: PRENATAL VITAMINS W/ FOLIC ACID TABLET (FP) PO SCH (10:04)
[2018-05-18] MEDS: LIDOCAINE 5% TOPICAL PATCH TP SCH (10:04)
[2018-05-18] MEDS: CYCLOBENZAPRINE HCL 5 MG TABLET PO SCH (10:04)
[2018-05-18] MEDS: TOLNAFTATE 1% CREAM 15 GM TUBE TP SCH ×2 (10:41→21:49)
[2018-05-18] MEDS: MELATONIN 5 MG TABLETS PO PRN (21:49)
[2018-05-18] MEDS: THIAMINE HCL 100 MG TABLET (FP) PO SCH (21:49)
[2018-05-18] MEDS: LIDOCAINE PATCH REMOVAL MC SCH (21:50)
[2018-05-19] MEDS ORDERED: METHADONE HCL 5 MG TABLET ONE (04:23)
[2018-05-19] MEDS ORDERED: METHADONE HCL 10 MG TABLET ONE (04:23)
[2018-05-19] MEDS: METHADONE 30 MG, METHADONE 5 MG PO SCH (06:35)
[2018-05-19] MEDS: DOCUSATE SODIUM 100 MG CAPSULE (FP) PO SCH ×3 (06:35→21:25)
[2018-05-19] MEDS: PRENATAL VITAMINS W/ FOLIC ACID TABLET (FP) PO SCH (10:09)
[2018-05-19] MEDS: NICOTINE 14 MG/24 HOURS TOPICAL PATCH TD SCH (10:09)
[2018-05-19] MEDS: LIDOCAINE 5% TOPICAL PATCH TP SCH (10:09)
[2018-05-19] MEDS: CYCLOBENZAPRINE HCL 5 MG TABLET PO SCH (10:09)
[2018-05-19] MEDS: TOLNAFTATE 1% CREAM 15 GM TUBE TP SCH ×2 (10:10→21:26)
[2018-05-19] MEDS: LIDOCAINE PATCH REMOVAL MC SCH (21:25)
[2018-05-19] MEDS: THIAMINE HCL 100 MG TABLET (FP) PO SCH (21:25)
[2018-05-20] MEDS ORDERED: METHADONE HCL 10 MG TABLET ONE (04:09)
[2018-05-20] MEDS ORDERED: METHADONE HCL 5 MG TABLET ONE (04:09)
[2018-05-20] MEDS: METHADONE 30 MG, METHADONE 5 MG PO SCH (06:44)
[2018-05-20] MEDS: DOCUSATE SODIUM 100 MG CAPSULE (FP) PO SCH ×3 (06:44→21:23)
[2018-05-20] MEDS: NICOTINE 14 MG/24 HOURS TOPICAL PATCH TD SCH (09:39)
[2018-05-20] MEDS: CYCLOBENZAPRINE HCL 5 MG TABLET PO SCH (09:39)
[2018-05-20] MEDS: LIDOCAINE 5% TOPICAL PATCH TP SCH (09:39)
[2018-05-20] MEDS: PRENATAL VITAMINS W/ FOLIC ACID TABLET (FP) PO SCH (09:39)
[2018-05-20] MEDS: TOLNAFTATE 1% CREAM 15 GM TUBE TP SCH ×2 (09:41→21:24)
[2018-05-20] MEDS: MELATONIN 5 MG TABLETS PO PRN (21:22)
[2018-05-20] MEDS: THIAMINE HCL 100 MG TABLET (FP) PO SCH (21:22)
[2018-05-20] MEDS: hydrOXYzine PAMOATE 50 MG CAPSULE (FP) PO PRN (21:23)
[2018-05-20] MEDS: LIDOCAINE PATCH REMOVAL MC SCH (21:24)
[2018-05-21] MEDS ORDERED: METHADONE HCL 5 MG TABLET ONE (03:14)
[2018-05-21] MEDS ORDERED: METHADONE HCL 10 MG TABLET ONE (03:14)
[2018-05-21] MEDS: DOCUSATE SODIUM 100 MG CAPSULE (FP) PO SCH ×3 (06:39→21:28)
[2018-05-21] MEDS: METHADONE 30 MG, METHADONE 5 MG PO SCH (06:39)
[2018-05-21] MEDS: LIDOCAINE 5% TOPICAL PATCH TP SCH (10:55)
[2018-05-21] MEDS: PRENATAL VITAMINS W/ FOLIC ACID TABLET (FP) PO SCH (10:55)
[2018-05-21] MEDS: CYCLOBENZAPRINE HCL 5 MG TABLET PO SCH (10:55)
[2018-05-21] MEDS: NICOTINE 14 MG/24 HOURS TOPICAL PATCH TD SCH (10:55)
[2018-05-21] MEDS: TOLNAFTATE 1% CREAM 15 GM TUBE TP SCH ×2 (10:56→21:30)
[2018-05-21] MEDS: THIAMINE HCL 100 MG TABLET (FP) PO SCH (21:28)
[2018-05-21] MEDS: hydrOXYzine PAMOATE 50 MG CAPSULE (FP) PO PRN (21:28)
[2018-05-21] MEDS: MELATONIN 5 MG TABLETS PO PRN (21:28)
[2018-05-21] MEDS: LIDOCAINE PATCH REMOVAL MC SCH (21:29)
[2018-05-22] MEDS ORDERED: METHADONE HCL 5 MG TABLET ONE (03:14)
[2018-05-22] MEDS ORDERED: METHADONE HCL 10 MG TABLET ONE (03:14)
[2018-05-22] MEDS: METHADONE 30 MG, METHADONE 5 MG PO SCH (06:13)
[2018-05-22] MEDS: DOCUSATE SODIUM 100 MG CAPSULE (FP) PO SCH (06:13)
[2018-05-22 06:50] VITALS: BP 120/79; PULSE 63; TEMP 97.5
[2018-05-22] MEDS: CYCLOBENZAPRINE HCL 5 MG TABLET PO SCH (10:32)
[2018-05-22] MEDS: TOLNAFTATE 1% CREAM 15 GM TUBE TP SCH (10:32)
[2018-05-22] MEDS: LIDOCAINE 5% TOPICAL PATCH TP SCH (10:32)
[2018-05-22] MEDS: NICOTINE 14 MG/24 HOURS TOPICAL PATCH TD SCH (10:32)
[2018-05-22] MEDS: PRENATAL VITAMINS W/ FOLIC ACID TABLET (FP) PO SCH (10:32)
--- NOTE | 2018-05-22 10:36 | PN ---
Psychiatric Progress Note Vital Signs: Vital Signs Period Temp Pulse Resp BP Sys/Alvarez Pulse Ox Last 24 Hr 97.5 F 63 18-18 120/79 Date of Session: 05/22/18 Chief Complaint:: Discharge Note HPI: Patient addressing Alcohol, Cocaine and Cannabis Dependence comormid with Opioid Dependence on Agonist Therapy, Nicotine Dependence, Substance-Induced Mood Disorder and Substance-Induced Sleep Disorder Current Medications: Active Medications Generic Name Dose Route Start Last Admin Trade Name Freq PRN Reason Stop Dose Admin Acetaminophen 650 mg 05/08/18 22:11 Tylenol - PO Q4H PRN FEVER Al Hydroxide/Mg Hydroxide 30 ml 05/08/18 22:11 Mylanta Oral Suspension - PO Q6H PRN DYSPEPSIA Cyclobenzaprine HCl 5 mg 05/10/18 15:00 05/21/18 10:55 Cyclobenzaprine Hcl PO 5 mg DAILY OPAL Administration Docusate Sodium 100 mg 05/17/18 14:30 05/22/18 06:13 Colace - PO 100 mg TID OPAL Administration Eucalyptus/Menthol/Phenol/Sorbitol 1 each 05/08/18 22:11 Cepastat Lozenge - MM Q4H PRN SORE THROAT Guaifenesin 10 ml 05/08/18 22:11 Robitussin Dm - PO Q6H PRN COUGH Hydroxyzine Pamoate 50 mg 05/08/18 22:11 05/21/18 21:28 Vistaril - PO 50 mg Q4H PRN Administration AGITATION Ibuprofen 400 mg 05/08/18 22:11 05/15/18 06:13 Motrin - PO 400 mg Q6H PRN Administration Pain level 4-6 Lidocaine 1 patch 05/10/18 15:00 05/21/18 10:55 Lidoderm Patch - TP 1 patch DAILY OPAL Administration Loperamide HCl 4 mg 05/08/18 22:11 Imodium - PO Q6H PRN DIARRHEA Magnesium Citrate 300 ml 05/08/18 22:11 Citroma - PO Q48H PRN CONSTIPATION Magnesium Hydroxide 30 ml 05/08/18 22:11 Milk Of Magnesia - PO DAILY PRN CONSTIPATION Melatonin 5 mg 05/08/18 22:00 05/21/18 21:28 Melatonin PO 5 mg HS PRN Administration INSOMNIA Methadone HCl 30 mg/ Methadone 35 mg 05/23/18 06:00 HCl 5 mg PO DAILY@0600 OPAL Miscellaneous 1 each 05/10/18 22:00 05/21/18 21:29 Lidoderm Patch Removal MC 1 each DAILY@2200 OPAL Administration Nicotine 14 mg 05/09/18 10:00 05/21/18 10:55 Nicoderm Patch - TD 14 mg DAILY OPAL Administration Nicotine Polacrilex 2 mg 05/08/18 22:11 Nicorette Gum - BC Q2H PRN NICOTINE REPLACEMENT RX Multivit/Folic Acid/Iron 1 tab 05/09/18 10:00 05/21/18 10:55 Vitamins (Sjr) - PO 1 tab DAILY OPAL Administration Pseudoephedrine/Triprolidine 1 combo 05/08/18 22:11 Actifed - PO TID PRN NASAL CONGESTION Thiamine HCl 100 mg 05/09/18 22:00 05/21/18 21:28 Vitamin B1 - PO 100 mg HS OPAL Administration Tolnaftate 1 applic 05/10/18 22:00 05/21/18 21:30 Tinactin 1% Cream - TP Not Given BID OPAL Current Side Effect: No Lab tests ordered: Yes Lab tests reviewed: Yes Provider note:: Patient has completed this program today. He has partially met his treatment goals and will continue to address his issues in outpatient treament at [facility]. 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 He is stable for discharge today Total face to face time:: 35 Mental Status Exam - Mental Status Exam Alert and Oriented to: Time, Place, Person Cognitive Function: Fair Patient Appearance: Well Groomed Mood: Hopeful Affect: Appropriate Patient Behavior: Cooperative Speech Pattern: Clear Voice Loudness: Normal Thought Process: Intact, Goal Oriented Thought Disorder: Not Present Hallucinations: Denies Suicidal Ideation: Denies Homicidal Ideation: Denies Insight/Judgement: Fair Sleep: Well Appetite: Good Muscle strength/Tone: Normal Gait/Station: Normal Psychiatric Treatment Plan - Problem List (1) Alcohol dependence Current Visit: Yes (2) Cocaine dependence Current Visit: Yes Qualifiers: Substance use status: uncomplicated Qualified Code(s): F14.20 - Cocaine dependence, uncomplicated (3) Cannabis dependence Current Visit: Yes (4) Opioid dependence on agonist therapy Current Visit: Yes Comment: On methadone 40mg dose pending verification (5) Nicotine dependence Current Visit: Yes Qualifiers: Nicotine product type: cigarettes Substance use status: in withdrawal Qualified Code(s): F17.213 - Nicotine dependence, cigarettes, with withdrawal (6) Substance induced mood disorder Current Visit: Yes (7) Substance-induced sleep disorder Current Visit: Yes Initial treatment plan: Patient is discharged today and referred to [facility] for outpatient treatment
[2018-05-23] MEDS ORDERED: METHADONE 30 MG, METHADONE 5 MG PO SCH (06:00)
== END 2018-05-22 11:15 | disposition home or self-care (01) | DRG 772 ==
LOC: YASAS 19:12 → Y3W 22:21
PROVIDERS: ADMIT Psychiatry & Neurology Psychiatry; ATTEND Psychiatry & Neurology Psychiatry
PROC: HZ42ZZZ Group Counseling for Substance Abuse Treatment, Cognitive-Behavioral (ICD-10-PCS; principal; 2018-05-08)
DX: F11.20 Opioid dependence, uncomplicated (principal); F10.20 Alcohol dependence, uncomplicated; F14.20 Cocaine dependence, uncomplicated; F12.20 Cannabis dependence, uncomplicated; F17.213 Nicotine dependence, cigarettes, with withdrawal; F19.24 Other psychoactive substance dependence with psychoactive substance-induced mood disorder; F19.282 Other psychoactive substance dependence with psychoactive substance-induced sleep disorder; M54.41 Lumbago with sciatica, right side; M25.551 Pain in right hip; Z59.0 Homelessness
CPT/HCPCS: 36415; 80053; 81003; 82962; 85027; 86593; 87389; 93005; 93010

== ENCOUNTER 2018-10-13 10:54 | Inpatient (IN) | payer OTHER ==
[2018-10-13 11:44] VITALS: BMI 19.8
--- NOTE | 2018-10-13 13:44 | HP ---
CIWA Score Nausea/Vomitin Muscle Tremors: 2 Anxiety: 4-Mod. Anxious/Guarded Agitation: 2 Paroxysmal Sweats: 3 Orientation: 0-Oriented Tacttile Disturbances: 0-None Auditory Disturbances: 0-None Visual Disturbances: 0-None Headache: 0-None Present CIWA-Ar Total Score: 13 - Admission Criteria OASAS Guidelines: Admission for Medically Managed Detox: Requires at least one of the followin. CIWA greater than 12 2. Seizures within the past 24 hours 3. Delirium tremens within the past 24 hours 4. Hallucinations within the past 24 hours 5. Acute intervention needed for co occurring medical disorder 6. Acute intervention needed for co occurring psychiatric disorder 7. Severe withdrawal that cannot be handled at a lower level of care (continued vomiting, continued diarrhea, abnormal vital signs) requiring intravenous medication and/or fluids 8. Patient presents the following: CIWA greater than 12 Admission Criteria Met: Admission criteria met Admission ROS [facility] Chief Complaint: "I am here to try to stop using drugs" Allergies/Adverse Reactions: Allergies Allergy/AdvReac Type Severity Reaction Status Date / Time No Known Allergies Allergy Verified 10/13/18 12:01 History of Present Illness: 52 y/o male with a long hx of substance addiction presents for detox for heroin and alcohol. Pt is known to this program and was last here in April 2018. Pt is in the methadone program at [facility] where he takes 30mg daily dose. Pt stated he had his dose today, was given home bottle for tomorrow but he stated he left that at his sister's place and does not have it on him. DELANEY Ramirez was unable to verify pt's dosing because no one picked the phone at [facility]. Explained to pt that next dosing will be based on verification;and that if we are unable to verify again tomorrow , he will get the minimum doing allowed (because of his positive opiate utox) and pt verbalized understanding. Pts utox positive for opiates,THC, Dannie, Fen and MtD;he denied using fentanyl stating "I guess I have to be careful, this is why I need to stop, they are adding stupid s...t to this thing", educated pt that he might get kicked out of his methadone program if found to be continuing Street heroin. Pt verbalized understanding. Explained to pt that because he is in a methadone program, his detox will be for Alcohol, again pt verbalized understanding. Denies any alcohol-related seizures, states he had overdosed before this summer "on maybe the fentanyl, I dont know but something they put in the heroin". Not sure if he was given narcan or not but found himself in the ambulance after using. Denies any med nor psych hx (declines psych consult at this visit). Denies past nor previous suicidal nor homicidal ideation. Exam Limitations: No Limitations - Ebola screening Have you traveled outside of the country in the last 21 days: No (N) Have you had contact with anyone from an Ebola affected area: No Have you been sick,other than usual withdrawal symptoms: No Do you have a fever: No - Review of Systems Constitutional: Loss of Appetite, Night Sweats, Changes in sleep, Unintentional Wgt. Loss EENT: reports: Blurred Vision, Nose Congestion Respiratory: reports: No Symptoms reported Cardiac: reports: No Symptoms Reported GI: reports: Constipated ("i think because of the methadone") : reports: No Symptoms Reported Musculoskeletal: reports: Back Pain Integumentary: reports: No Symptoms Reported Neuro: reports: No Symptoms reported Endocrine: reports: No Symptoms Reported Hematology: reports: No Symptoms Reported Psychiatric: reports: Judgement Intact, Orientated x3, Anxious Other Systems: Reviewed and Negative Patient History - Patient Medical History Hx Anemia: No Hx Asthma: No Hx Chronic Obstructive Pulmonary Disease (COPD): No Hx Cancer: No Hx Cardiac Disorders: No Hx Congestive Heart Failure: No Hx Hypertension: No Hx Hypercholesterolemia: No Hx Pacemaker: No HX Cerebrovascular Accident: No Hx Seizures: No Hx Dementia: No Hx Diabetes: No Hx Gastrointestinal Disorders: No Hx Liver Disease: No Hx Genitourinary Disorders: No Hx Sexually Transmitted Disorders: No Hx Renal Disease (ESRD): No Hx Thyroid Disease: No Hx Human Immunodeficiency Virus (HIV): No Hx Hepatitis C: No Hx Depression: No Hx Suicide Attempt: No Hx Bipolar Disorder: No Hx Schizophrenia: No - Patient Surgical History Past Surgical History: Yes Hx Neurologic Surgery: No Hx Cataract Extraction: No Hx Cardiac Surgery: No Hx Lung Surgery: No Hx Breast Surgery: No Hx Breast Biopsy: No Hx Abdominal Surgery: Yes (left inguinal hernia repair age 7) Hx Appendectomy: No Hx Cholecystectomy: No Hx Genitourinary Surgery: No Hx Section: No Hx Orthopedic Surgery: No Other Surgical History: left inguinal hernia repair Anesthesia Reaction: No - PPD History Previous Implant?: Yes Documented Results: Negative w/proof Implanted On Prior [facility] Admission?: Yes Date: 06/08/17 Results: 0 MM PPD to be Administered?: Yes - Smoking Cessation Smoking history: Current every day smoker Have you smoked in the past 12 months: Yes Aproximately how many cigarettes per day: 20 Cigars Per Day: 0 Hx Chewing Tobacco Use: No Initiated information on smoking cessation: Yes 'Breaking Loose' booklet given: 10/13/18 - Substance & Tx. History Hx Alcohol Use: Yes Hx Substance Use: Yes Substance Use Type: Alcohol, Opiates Hx Substance Use Treatment: Yes - Substances Abused Alcohol Route: Oral Frequency: Daily Amount used: 1 pint of vodka, 4 12oz bottles of heinekin Age of first use: 19 Date of Last Use: 10/13/18 Heroin Route: Inhalation Frequency: Daily Amount used: 2 bags Age of first use: 35 Date of Last Use: 10/12/18 Cocaine Route: Inhalation Frequency: Daily Amount used: 1 gram Age of first use: 19 Date of Last Use: 10/12/18 Family Disease History - Family Disease History Family Disease History: Other: Father (, parkinsons dx), Mother (AIDS , hx ivdu), Brother (1 - living - healthy), Sister (3 - living- healthy) Admission Physical Exam BHS - Vital Signs Vital Signs: Vital Signs - 24 hr 10/13/18 11:37 Temperature 97.9 F Pulse Rate 69 Respiratory 18 Rate Blood Pressure 112/64 - Physical General Appearance: Yes: Disheveled, Mild Distress, Anxious HEENTM: Yes: Within Normal Limits Respiratory: Yes: Normal Breath Sounds, No Respiratory Distress, No Accessory Muscle Use Neck: Yes: No masses,lesions,Nodules, Trachea in good position Breast: Yes: Breast Exam Deferred Cardiology: Yes: Regular Rate Abdominal: Yes: Non Tender, Soft Genitourinary: Yes: Within Normal Limits Back: Yes: Within Normal Limits, Normal Inspection Musculoskeletal: Yes: full range of Motion, Gait Steady Extremities: Yes: Normal Capillary Refill, Normal Inspection, Normal Range of Motion Neurological: Yes: Within Normal Limits, Fully Oriented, Alert Integumentary: Yes: Within Normal Limits, Dry, Warm Lymphatic: Yes: Within Normal Limits - Diagnostic (1) Opioid dependence on agonist therapy Current Visit: Yes Status: Chronic Comment: On methadone 40mg dose pending verification (2) Alcohol dependence, uncomplicated Current Visit: Yes Status: Acute (3) Nicotine dependence Current Visit: Yes Status: Chronic Qualifiers: Nicotine product type: cigarettes Substance use status: in withdrawal Qualified Code(s): F17.213 - Nicotine dependence, cigarettes, with withdrawal (4) Cannabis dependence, uncomplicated Current Visit: Yes Status: Chronic (5) Low back pain Current Visit: Yes Status: Chronic Qualifiers: Chronicity: acute Back pain laterality: right Sciatica presence: with sciatica Sciatica laterality: sciatica of right side Qualified Code(s): M54.41 - Lumbago with sciatica, right side (6) Weight decreased Current Visit: Yes Status: Chronic (7) Heroin dependence Current Visit: Yes Status: Chronic Cleared for Admission [facility] - Detox or Rehab [facility] Level of Care: Medically Managed Detox Regimen/Protocol: Librium [facility] Breath Alcohol Content Breath Alcohol Content: 0.015 Urine Drug Screen - Results Drug Screen Negative: No Urine Drug Screen Results: THC-Marijuana, DANNIE-Cocaine, OPI-Opiates, MTD- Methadone, FEN-Fentanyl
[2018-10-13] MEDS ORDERED: NICOTINE POLACRILEX 2 MG GUM BUC PRN (14:09)
[2018-10-13] MEDS ORDERED: guaiFENesin/D-METHORPHAN HB 10 ML UNIT-DOSE CUPS PO PRN (14:09)
[2018-10-13] MEDS ORDERED: LOPERAMIDE HCL 2 MG CAPSULE PO PRN (14:09)
[2018-10-13] MEDS ORDERED: MAGNESIUM HYDROX 2400MG/30ML ORAL SUSPENSION 30 ML CUP PO PRN (14:09)
[2018-10-13] MEDS ORDERED: hydrOXYzine PAMOATE 25 MG CAPSULE (FP) PO PRN (14:09)
[2018-10-13] MEDS ORDERED: MAG HYDROX/AL HYDROX/SIMETH 30 ML UNIT-DOSE CUP PO PRN (14:09)
[2018-10-13] MEDS ORDERED: ACETAMINOPHEN 325 MG TABLET (FP) PO PRN (14:09)
[2018-10-13] MEDS ORDERED: chlordiazePOXIDE HCL 25 MG CAPSULE PO PRN (14:09)
[2018-10-13] MEDS ORDERED: P-EPHED 60MG/TRIPROLIDI 2.5MG TABLET PO PRN (14:09)
[2018-10-13] MEDS ORDERED: MAGNESIUM CITRATE 300 ML BOTTLE PO PRN (14:09)
[2018-10-13] MEDS ORDERED: MENTHOL/PHENOL 1 EACH UD MM PRN (14:09)
[2018-10-13] MEDS ORDERED: IBUPROFEN 400 MG TABLET (FP) PO PRN (14:09)
--- NOTE | 2018-10-13 14:54 | EKG ---
Test Reason : Blood Pressure : / mmHG Vent. Rate : 069 BPM Atrial Rate : 069 BPM P-R Int : 108 ms QRS Dur : 086 ms QT Int : 408 ms P-R-T Axes : 057 082 071 degrees QTc Int : 437 ms SINUS RHYTHM WITH SHORT WI LEFT ATRIAL ENLARGEMENT T WAVE ABNORMALITY, CONSIDER ANTERIOR ISCHEMIA ABNORMAL ECG WHEN COMPARED WITH ECG OF 09-MAY-2018 00:16, T WAVE INVERSION NOW EVIDENT IN ANTERIOR LEADS Confirmed by Aristides Webber ([id number]) on 10/13/2018 2:53:57 PM Referred By: Confirmed By:Aristides Webber
[2018-10-13] MEDS: NICOTINE 21 MG/24 HOURS TOPICAL PATCH TD SCH (15:03)
[2018-10-13] MEDS: chlordiazePOXIDE HCL 25 MG CAPSULE PO SCH ×2 (17:58→22:44)
[2018-10-13 19:25] LABS: URINE APPEARANCE CLEAR; URINE BILIRUBIN NEGATIVE (<2.0 mg/dL); URINE COLOR YELLOW; URINE GLUCOSE (UA) NEGATIVE (NEGATIVE); URINE KETONE TRACE (NEGATIVE); URINE LEUK ESTERASE NEGATIVE (NEGATIVE); URINE NITRITE NEGATIVE (NEGATIVE); URINE PROTEIN NEGATIVE (NEGATIVE)
[2018-10-13] MEDS ORDERED: MELATONIN 5 MG TABLETS PO PRN (22:00)
[2018-10-13] MEDS: THIAMINE HCL 100 MG TABLET (FP) PO SCH (22:44)
[2018-10-14] MEDS: chlordiazePOXIDE HCL 25 MG CAPSULE PO SCH ×4 (06:08→22:38)
[2018-10-14] MEDS: PRENATAL VITAMINS W/ FOLIC ACID TABLET (FP) PO SCH (10:24)
[2018-10-14] MEDS: NICOTINE 21 MG/24 HOURS TOPICAL PATCH TD SCH (10:24)
[2018-10-14 10:34] LABS: HEMATOCRIT 41.7 % (35.4-49); HEMOGLOBIN 13.7 GM/dL (11.7-16.9); MCHC 32.9 g/dl (32.0-35.9); MEAN CELL VOLUME 100.2 fl (80-96); PLATELET COUNT 314 K/MM3 (134-434); RBC 4.16 M/mm3 (4.00-5.60); RDW 14.8 % (11.9-15.9); WHITE BLOOD COUNT 5.8 K/mm3 (4.0-10.0)
[2018-10-14 10:40] LABS: ALBUMIN 3.2 g/dl (3.4-5.0); ALK PHOS 60 U/L (45-117); ANION GAP 7 MMOL/L (8-16); BILIRUBIN,TOTAL 0.4 mg/dL (0.2-1); BLOOD UREA NITROGEN 22 mg/dL (7-18); CALCIUM 8.2 mg/dL (8.5-10.1); CHLORIDE 108 mmol/L (98-107); CO2 25 mmol/L (21-32); CREATININE 0.8 mg/dL (0.55-1.3); GLUCOSE,RANDOM 101 mg/dL (74-106); POTASSIUM 4.2 mmol/L (3.5-5.1); SGOT/AST 23 U/L (15-37); SGPT/ALT 16 U/L (13-61); SODIUM 141 mmol/L (136-145)
[2018-10-14] MEDS ORDERED: METHADONE HCL 10 MG TABLET PO ONE (11:42)
--- NOTE | 2018-10-14 11:51 | PN ---
[facility] CIWA - CIWA Score Nausea/Vomitin-Mild Nausea/No Vomiting Muscle Tremors: 2 Anxiety: 1-Mildly Anxious Agitation: 2 Paroxysmal Sweats: 1-Minimal Palms Moist Orientation: 1-Uncertain about Date Tacttile Disturbances: 1-Very Mild Itch/Numbness Auditory Disturbances: 1-Very Mild Visual Disturbances: 0-None Headache: 1-Very Mild CIWA-Ar Total Score: 11 BHS Progress Note (SOAP) Subjective: sweat tremor anxiety restlessness patient is in methadone program 30 mg po daily last dose 10/13/18 one take home bottle received empty bottle of 10/14/18 methadone " I drank yesterday" health teaching on risks of methadone overdose + urine tox for opiate + fent Objective: 10/14/18 11:52 Vital Signs Temperature 97.7 F 10/14/18 10:16 Pulse Rate 63 10/14/18 10:16 Respiratory Rate 18 10/14/18 10:16 Blood Pressure 115/72 10/14/18 10:16 O2 Sat by Pulse Oximetry (%) Laboratory Last Values WBC 5.8 K/mm3 (4.0-10.0) 10/14/18 07:40 RBC 4.16 M/mm3 (4.00-5.60) 10/14/18 07:40 Hgb 13.7 GM/dL (11.7-16.9) 10/14/18 07:40 Hct 41.7 % (35.4-49) 10/14/18 07:40 MCV 100.2 fl (80-96) H 10/14/18 07:40 MCH 33.0 pg (25.7-33.7) 10/14/18 07:40 MCHC 32.9 g/dl (32.0-35.9) 10/14/18 07:40 RDW 14.8 % (11.9-15.9) 10/14/18 07:40 Plt Count 314 K/MM3 (134-434) 10/14/18 07:40 MPV 8.0 fl (7.5-11.1) 10/14/18 07:40 Sodium 141 mmol/L (136-145) 10/14/18 07:40 Potassium 4.2 mmol/L (3.5-5.1) 10/14/18 07:40 Chloride 108 mmol/L (98-107) H 10/14/18 07:40 Carbon Dioxide 25 mmol/L (21-32) 10/14/18 07:40 Anion Gap 7 MMOL/L (8-16) L 10/14/18 07:40 BUN 22 mg/dL (7-18) H 10/14/18 07:40 Creatinine 0.8 mg/dL (0.55-1.3) 10/14/18 07:40 Creat Clearance w eGFR > 60 (>60) 10/14/18 07:40 Random Glucose 101 mg/dL (74-106) 10/14/18 07:40 Calcium 8.2 mg/dL (8.5-10.1) L 10/14/18 07:40 Total Bilirubin 0.4 mg/dL (0.2-1) 10/14/18 07:40 AST 23 U/L (15-37) 10/14/18 07:40 ALT 16 U/L (13-61) 10/14/18 07:40 Alkaline Phosphatase 60 U/L (45-117) 10/14/18 07:40 Total Protein 6.0 g/dl (6.4-8.2) L 10/14/18 07:40 Albumin 3.2 g/dl (3.4-5.0) L 10/14/18 07:40 Urine Color Yellow 10/13/18 17:30 Urine Appearance Clear 10/13/18 17:30 Urine pH 5.0 (5.0-8.0) 10/13/18 17:30 Ur Specific [place] 1.020 (1.010-1.035) 10/13/18 17:30 Urine Protein Negative (NEGATIVE) 10/13/18 17:30 Urine Glucose (UA) Negative (NEGATIVE) 10/13/18 17:30 Urine Ketones Trace (NEGATIVE) H 10/13/18 17:30 Urine Blood Negative (NEGATIVE) 10/13/18 17:30 Urine Nitrite Negative (NEGATIVE) 10/13/18 17:30 Urine Bilirubin Negative (<2.0 mg/dL) 10/13/18 17: Urine Urobilinogen 2.0 mg/dL (0.2-1.0) 10/13/18 17:30 Ur Leukocyte Esterase Negative (NEGATIVE) 10/13/18 17:30 RPR Titer Nonreactive (NONREACTIVE) 10/14/18 07:40 lab noted Assessment: 10/14/18 11:52 withdrawal sx 10/14/18 11:53 methadone maintenance program Plan: continue detox one methadone 10 mg for today verification will be done 10/15/18
[2018-10-14] MEDS: THIAMINE HCL 100 MG TABLET (FP) PO SCH (22:38)
[2018-10-15] MEDS: chlordiazePOXIDE HCL 25 MG CAPSULE PO SCH ×2 (05:50→10:08)
[2018-10-15] MEDS ORDERED: METHADONE HCL 10 MG TABLET PO ONE (08:48)
--- NOTE | 2018-10-15 09:45 | PN ---
[facility] CIWA - CIWA Score Nausea/Vomitin-No Nausea/No Vomiting Muscle Tremors: 3 Anxiety: 2 Agitation: 3 Paroxysmal Sweats: 3 Orientation: 0-Oriented Tacttile Disturbances: 0-None Auditory Disturbances: 0-None Visual Disturbances: 0-None Headache: 0-None Present CIWA-Ar Total Score: 11 S Progress Note (SOAP) Subjective: sweats shakes interrupted sleep body aches irritable Objective: 10/15/18 09:44 Vital Signs Temperature 98.8 F 10/15/18 09:28 Pulse Rate 72 10/15/18 09:28 Respiratory Rate 18 10/15/18 09:28 Blood Pressure 100/51 L 10/15/18 09:28 O2 Sat by Pulse Oximetry (%) Laboratory Tests 10/13/18 10/14/18 10/14/18 17:30 07:40 07:40 WBC 5.8 RBC 4.16 Hgb 13.7 Hct 41.7 MCV 100.2 H MCH 33.0 MCHC 32.9 RDW 14.8 Plt Count 314 MPV 8.0 Sodium 141 Potassium 4.2 Chloride 108 H Carbon Dioxide 25 Anion Gap 7 L BUN 22 H Creatinine 0.8 Creat Clearance w eGFR > 60 Random Glucose 101 Calcium 8.2 L Total Bilirubin 0.4 AST 23 ALT 16 Alkaline Phosphatase 60 Total Protein 6.0 L Albumin 3.2 L Urine Color Yellow Urine Appearance Clear Urine pH 5.0 Ur Specific [place] 1.020 Urine Protein Negative Urine Glucose (UA) Negative Urine Ketones Trace H Urine Blood Negative Urine Nitrite Negative Urine Bilirubin Negative Urine Urobilinogen 2.0 Ur Leukocyte Esterase Negative RPR Titer 10/14/18 07:40 WBC RBC Hgb Hct MCV MCH MCHC RDW Plt Count MPV Sodium Potassium Chloride Carbon Dioxide Anion Gap BUN Creatinine Creat Clearance w eGFR Random Glucose Calcium Total Bilirubin AST ALT Alkaline Phosphatase Total Protein Albumin Urine Color Urine Appearance Urine pH Ur Specific [place] Urine Protein Urine Glucose (UA) Urine Ketones Urine Blood Urine Nitrite Urine Bilirubin Urine Urobilinogen Ur Leukocyte Esterase RPR Titer Nonreactive aaox3 ambulating no acute distress Assessment: 10/15/18 09:44 withdrawal sx Plan: continue detox increase fluids
[2018-10-15] MEDS: PRENATAL VITAMINS W/ FOLIC ACID TABLET (FP) PO SCH (10:08)
[2018-10-15] MEDS: NICOTINE 21 MG/24 HOURS TOPICAL PATCH TD SCH (10:08)
[2018-10-15 12:54] VITALS: BP 106/64; PULSE 73; TEMP 96.1
--- NOTE | 2018-10-15 14:31 | PN ---
BHS Progress Note Note: pt did not want to continue detox, pt wants to go home. pt signed out AMA.
--- NOTE | 2018-10-15 14:36 | DS ---
[facility] Detox Discharge Summary Admission Date: 10/13/18 - History Present History: Alcohol Dependence, Cannabis Dependence, Cocaine Dependence - Physical Exam Results Vital Signs: Vital Signs Temperature 96.1 F L 10/15/18 12:53 Pulse Rate 73 10/15/18 12:53 Respiratory Rate 18 10/15/18 12:53 Blood Pressure 106/64 10/15/18 12:53 O2 Sat by Pulse Oximetry (%) - Treatment Hospital Course: Detoxed Safely - Medication Discharge Medications: Ambulatory Orders NK [No Known Home Medication] 06/06/17 - Diagnosis (1) Alcohol dependence, uncomplicated Current Visit: Yes Status: Chronic (2) Cannabis dependence, uncomplicated Current Visit: Yes Status: Chronic (3) Low back pain Current Visit: Yes Status: Chronic Qualifiers: Chronicity: acute Back pain laterality: right Sciatica presence: with sciatica Sciatica laterality: sciatica of right side Qualified Code(s): M54.41 - Lumbago with sciatica, right side (4) Nicotine dependence Current Visit: Yes Status: Chronic Qualifiers: Nicotine product type: cigarettes Substance use status: uncomplicated Qualified Code(s): F17.210 - Nicotine dependence, cigarettes, uncomplicated (5) Weight decreased Current Visit: Yes Status: Chronic (6) Drug-induced mood disorder Current Visit: No Status: Acute (7) Right elbow pain Current Visit: No Status: Acute (8) Substance induced mood disorder Current Visit: No Status: Acute (9) Substance induced mood disorder Current Visit: No Status: Acute (10) Substance-induced sleep disorder Current Visit: No Status: Acute (11) Substance-induced sleep disorder Current Visit: No Status: Acute - AMA Did Patient Leave Against Medical Advice: Yes (going home. pt states going back to his mmtp program)
[2018-10-15] MEDS ORDERED: chlordiazePOXIDE 5 MG CAPSULE PO SCH (17:00)
[2018-10-16] MEDS ORDERED: METHADONE HCL 10 MG TABLET PO SCH (06:00)
[2018-10-16] MEDS ORDERED: chlordiazePOXIDE HCL 10 MG CAPSULE PO SCH (17:00)
== END 2018-10-15 14:45 | disposition left against medical advice (07) | DRG 770 ==
LOC: YASAS 10:54 → Y6N 13:08
PROC: HZ2ZZZZ Detoxification Services for Substance Abuse Treatment (ICD-10-PCS; principal; 2018-10-13)
DX: F10.20 Alcohol dependence, uncomplicated (principal); F14.20 Cocaine dependence, uncomplicated; F12.20 Cannabis dependence, uncomplicated; F11.20 Opioid dependence, uncomplicated; F17.210 Nicotine dependence, cigarettes, uncomplicated; F19.24 Other psychoactive substance dependence with psychoactive substance-induced mood disorder; F19.282 Other psychoactive substance dependence with psychoactive substance-induced sleep disorder; M25.521 Pain in right elbow; R63.4 Abnormal weight loss; Z68.1 Body mass index [BMI] 19.9 or less, adult; Z59.0 Homelessness
CPT/HCPCS: 36415; 80053; 81003; 85027; 86593; 93005; 93010

== ENCOUNTER 2019-02-23 11:45 | Inpatient (IN) | payer OTHER ==
[2019-02-23 12:06] VITALS: BMI 21.2
--- NOTE | 2019-02-23 12:32 | HP ---
CIWA Score Nausea/Vomitin-Mild Nausea/No Vomiting Muscle Tremors: 4-Moderate,w/Arms Extend Anxiety: 4-Mod. Anxious/Guarded Agitation: 0-Normal Activity Paroxysmal Sweats: 1-Minimal Palms Moist Orientation: 0-Oriented Tacttile Disturbances: 1-Very Mild Itch/Numbness Auditory Disturbances: 1-Very Mild Visual Disturbances: 1-Very Mild Sensitivity Headache: 2-Mild CIWA-Ar Total Score: 15 - Admission Criteria OASAS Guidelines: Admission for Medically Managed Detox: Requires at least one of the followin. CIWA greater than 12 2. Seizures within the past 24 hours 3. Delirium tremens within the past 24 hours 4. Hallucinations within the past 24 hours 5. Acute intervention needed for co occurring medical disorder 6. Acute intervention needed for co occurring psychiatric disorder 7. Severe withdrawal that cannot be handled at a lower level of care (continued vomiting, continued diarrhea, abnormal vital signs) requiring intravenous medication and/or fluids 8. Patient presents the following: CIWA greater than 12 Admission Criteria Met: Admission criteria met Admission ROS S - [facility] Chief Complaint: It's ruining my life, I look terrible, I don't want to lose my job Allergies/Adverse Reactions: Allergies Allergy/AdvReac Type Severity Reaction Status Date / Time No Known Allergies Allergy Verified 10/13/18 12:01 History of Present Illness: 53 yo gentleman here for detox from alcohol - also using heroin but on methadone program and was dosed today and brought in bottle ([facility], ). Has had overdose in past and black outs, no seizures. We discussed he might need to talk to his program about increasing his methadone dose and we can only treat for alcohol detox at this time. urine tox + methamphetamines - does not use separately, thinks mixed with heroin. States he has to drink all day to keep his shaking from affecting his job. Exam Limitations: No Limitations - Ebola screening Have you traveled outside of the country in the last 21 days: No (N) Have you had contact with anyone from an Ebola affected area: No Have you been sick,other than usual withdrawal symptoms: No Do you have a fever: No - Review of Systems Constitutional: Loss of Appetite, Malaise, Changes in sleep, Weakness EENT: reports: No Symptoms Reported Respiratory: reports: No Symptoms reported Cardiac: reports: No Symptoms Reported GI: reports: Nausea, Poor Appetite, Poor Fluid Intake, Abdominal cramping : reports: Frequency Musculoskeletal: reports: No Symptoms Reported Integumentary: reports: Dryness Neuro: reports: Headache, Tremors Endocrine: reports: No Symptoms Reported Hematology: reports: No Symptoms Reported Psychiatric: reports: Judgement Intact, Mood/Affect Appropiate, Anxious Other Systems: Reviewed and Negative Patient History - Patient Medical History Hx Anemia: No Hx Asthma: No Hx Chronic Obstructive Pulmonary Disease (COPD): No Hx Cancer: No Hx Cardiac Disorders: No Hx Congestive Heart Failure: No Hx Hypertension: No Hx Hypercholesterolemia: No Hx Pacemaker: No HX Cerebrovascular Accident: No Hx Seizures: No Hx Dementia: No Hx Diabetes: No Hx Gastrointestinal Disorders: No Hx Liver Disease: No Hx Genitourinary Disorders: No Hx Sexually Transmitted Disorders: No Hx Renal Disease (ESRD): No Hx Thyroid Disease: No Hx Human Immunodeficiency Virus (HIV): No Hx Hepatitis C: No Hx Depression: Yes (i feel sad because of the drinking, never hospitalized, no meds) Hx Suicide Attempt: No Hx Bipolar Disorder: No Hx Schizophrenia: No - Patient Surgical History Past Surgical History: Yes Hx Neurologic Surgery: No Hx Cataract Extraction: No Hx Cardiac Surgery: No Hx Lung Surgery: No Hx Breast Surgery: No Hx Breast Biopsy: No Hx Abdominal Surgery: Yes (left inguinal hernia repair age 7) Hx Appendectomy: No Hx Cholecystectomy: No Hx Genitourinary Surgery: No Hx Section: No Hx Orthopedic Surgery: No Anesthesia Reaction: No - PPD History Date: 10/15/18 Results: 0 MM - Reproductive History Patient is a Female of Child Bearing Age (11 -55 yrs old): No (male) - Smoking Cessation Smoking history: Current every day smoker Have you smoked in the past 12 months: Yes Aproximately how many cigarettes per day: 10 Cigars Per Day: 0 Hx Chewing Tobacco Use: No Initiated information on smoking cessation: Yes 'Breaking Loose' booklet given: 02/23/19 (give on floor) - Substance & Tx. History Hx Alcohol Use: Yes Hx Substance Use: Yes Substance Use Type: Alcohol, Cocaine, Heroin, Marijuana Hx Substance Use Treatment: Yes (detox, rehab) - Substances Abused heroin Route: Inhalation Frequency: Daily Amount used: 2 bags Age of first use: 34 Date of Last Use: 02/22/19 cocaine Route: Smoking Frequency: Daily Amount used: $30 Age of first use: 22 Date of Last Use: 02/22/19 marijuana Route: Smoking Frequency: Daily Amount used: 1 blunt Age of first use: 17 Date of Last Use: 02/22/19 etoh Route: Oral Frequency: Daily Amount used: 1 pint vodka; three 24 oz beers daily Age of first use: 24 Date of Last Use: 02/23/19 Family Disease History - Family Disease History Family Disease History: Other: Father (, parkinsons dx), Mother (AIDS , hx ivdu), Brother (1 - living - healthy), Sister (3 - living- healthy) Admission Physical Exam [facility] - Vital Signs Vital Signs: Vital Signs - 24 hr 02/23/19 12:00 Temperature 96.4 F L Pulse Rate 75 Respiratory 16 Rate Blood Pressure 92/72 - Physical General Appearance: Yes: Appropriately Dressed, Moderate Distress, Thin, Tremorous, Anxious HEENTM: Yes: EOMI, Hearing grossly Normal, Normocephalic, Normal Voice, Other ( poor dentition) Respiratory: Yes: Normal Breath Sounds, No Respiratory Distress Neck: Yes: No masses,lesions,Nodules, Supple Breast: Yes: Breast Exam Deferred Cardiology: Yes: Regular Rhythm, Regular Rate Abdominal: Yes: Flat, Soft Genitourinary: Yes: Frequency Back: Yes: Normal Inspection Musculoskeletal: Yes: full range of Motion, Gait Steady Extremities: Yes: Within Normal Limits Neurological: Yes: Fully Oriented, Alert, Motor Strength 5/5, Normal Mood/Affect , Normal Response Integumentary: Yes: Normal Color, Dry, Warm Lymphatic: Yes: Within Normal Limits - Diagnostic (1) Alcohol dependence, uncomplicated Current Visit: Yes Status: Chronic (2) Methadone maintenance therapy patient Current Visit: Yes Status: Chronic (3) Cannabis dependence, uncomplicated Current Visit: Yes Status: Chronic (4) Nicotine dependence Current Visit: Yes Status: Chronic Qualifiers: Nicotine product type: cigarettes Substance use status: uncomplicated Qualified Code(s): F17.210 - Nicotine dependence, cigarettes, uncomplicated (5) Weight decreased Current Visit: Yes Status: Chronic Cleared for Admission [facility] - Detox or Rehab [facility] Level of Care: Medically Managed Detox Regimen/Protocol: Librium S Breath Alcohol Content Breath Alcohol Content: 0.015 Urine Drug Screen - Results Drug Screen Negative: No Urine Drug Screen Results: THC-Marijuana, DANNIE-Cocaine, OPI-Opiates, MET- Methamphetamine, MTD-Methadone, FEN-Fentanyl Inpatient Rehab Admission - Rehab Decision to Admit Inpatient rehab admission?: No
[2019-02-23] MEDS ORDERED: BISMUTH SUBSALICYLATE 524 MG/30 ML UD PO PRN (12:33)
[2019-02-23] MEDS ORDERED: ACETAMINOPHEN 325 MG TABLET (FP) PO PRN (12:33)
[2019-02-23] MEDS ORDERED: chlordiazePOXIDE HCL 25 MG CAPSULE PO ONE (12:33)
[2019-02-23] MEDS ORDERED: MENTHOL/PHENOL 1 EACH UD MM PRN (12:33)
[2019-02-23] MEDS ORDERED: MELATONIN 5 MG TABLETS PO PRN (12:33)
[2019-02-23] MEDS ORDERED: MAGNESIUM HYDROX 2400MG/30ML ORAL SUSPENSION 30 ML CUP PO PRN (12:33)
[2019-02-23] MEDS ORDERED: MAG HYDROX/AL HYDROX/SIMETH 30 ML UNIT-DOSE CUP PO PRN (12:33)
[2019-02-23] MEDS ORDERED: METHOCARBAMOL 500 MG TABLET PO PRN (12:33)
[2019-02-23] MEDS ORDERED: IBUPROFEN 400 MG TABLET (FP) PO PRN (12:33)
[2019-02-23] MEDS ORDERED: MAGNESIUM CITRATE 300 ML BOTTLE PO PRN (12:33)
[2019-02-23] MEDS ORDERED: hydrOXYzine PAMOATE 25 MG CAPSULE (FP) PO PRN (12:33)
[2019-02-23] MEDS ORDERED: chlordiazePOXIDE HCL 25 MG CAPSULE PO PRN (12:33)
[2019-02-23] MEDS: NICOTINE 21 MG/24 HOURS TOPICAL PATCH TD SCH (15:08)
[2019-02-23] MEDS: chlordiazePOXIDE HCL 25 MG CAPSULE PO SCH ×2 (18:15→22:53)
[2019-02-23] MEDS: THIAMINE HCL 100 MG TABLET (FP) PO SCH (22:53)
[2019-02-24] MEDS: chlordiazePOXIDE HCL 25 MG CAPSULE PO SCH ×4 (06:33→22:24)
[2019-02-24] MEDS: METHADONE HCL 40 MG DISPERSABLE TABLET PO SCH (10:29)
[2019-02-24 10:30] LABS: HEMOGLOBIN 13.2 GM/dL (11.7-16.9); MCH 31.9 pg (25.7-33.7); MCHC 31.5 g/dl (32.0-35.9); MEAN CELL VOLUME 101.2 fl (80-96); MEAN PLT VOLUME 8.1 fl (7.5-11.1); PLATELET COUNT 270 K/MM3 (134-434); RBC 4.15 M/mm3 (4.00-5.60); RDW 14.7 % (11.9-15.9); WHITE BLOOD COUNT 6.9 K/mm3 (4.0-10.0)
[2019-02-24] MEDS: NICOTINE 21 MG/24 HOURS TOPICAL PATCH TD SCH (10:30)
[2019-02-24] MEDS: PRENATAL VITAMINS W/ FOLIC ACID TABLET (FP) PO SCH (10:30)
[2019-02-24 10:41] LABS: ALBUMIN 3.2 g/dl (3.4-5.0); ALK PHOS 58 U/L (45-117); ANION GAP 4 MMOL/L (8-16); BILIRUBIN,TOTAL 0.2 mg/dL (0.2-1); BLOOD UREA NITROGEN 22 mg/dL (7-18); CALCIUM 8.2 mg/dL (8.5-10.1); CHLORIDE 106 mmol/L (98-107); CO2 31 mmol/L (21-32); CREATININE 0.9 mg/dL (0.55-1.3); GLUCOSE,RANDOM 96 mg/dL (74-106); POTASSIUM 4.3 mmol/L (3.5-5.1); SGOT/AST 14 U/L (15-37); SGPT/ALT 11 U/L (13-61); SODIUM 141 mmol/L (136-145); TOT PROT 5.9 g/dl (6.4-8.2)
--- NOTE | 2019-02-24 10:57 | PN ---
[facility] CIWA - CIWA Score Nausea/Vomitin-Mild Nausea/No Vomiting Muscle Tremors: 3 Anxiety: 2 Agitation: 2 Paroxysmal Sweats: 1-Minimal Palms Moist Orientation: 1-Uncertain about Date Tacttile Disturbances: 0-None Auditory Disturbances: 0-None Visual Disturbances: 0-None Headache: 1-Very Mild CIWA-Ar Total Score: 11 S Progress Note (SOAP) Subjective: tremor trouble sleep at night sweating restlessness low energy discuss risks of alcohol related preventable injuries Objective: 02/24/19 10:57 Vital Signs Temperature 96.4 F L 02/24/19 09:51 Pulse Rate 79 02/24/19 09:51 Respiratory Rate 18 02/24/19 09:51 Blood Pressure 102/69 02/24/19 09:51 O2 Sat by Pulse Oximetry (%) Laboratory Last Values WBC 6.9 K/mm3 (4.0-10.0) 02/24/19 07:30 RBC 4.15 M/mm3 (4.00-5.60) 02/24/19 07:30 Hgb 13.2 GM/dL (11.7-16.9) 02/24/19 07:30 Hct 42.0 % (35.4-49) 02/24/19 07:30 MCV 101.2 fl (80-96) H 02/24/19 07:30 MCH 31.9 pg (25.7-33.7) 02/24/19 07:30 MCHC 31.5 g/dl (32.0-35.9) L 02/24/19 07:30 RDW 14.7 % (11.9-15.9) 02/24/19 07:30 Plt Count 270 K/MM3 (134-434) 02/24/19 07:30 MPV 8.1 fl (7.5-11.1) 02/24/19 07:30 Sodium 141 mmol/L (136-145) 02/24/19 07:30 Potassium 4.3 mmol/L (3.5-5.1) 02/24/19 07:30 Chloride 106 mmol/L (98-107) 02/24/19 07:30 Carbon Dioxide 31 mmol/L (21-32) 02/24/19 07:30 Anion Gap 4 MMOL/L (8-16) L 02/24/19 07:30 BUN 22 mg/dL (7-18) H 02/24/19 07:30 Creatinine 0.9 mg/dL (0.55-1.3) 02/24/19 07:30 Creat Clearance w eGFR 88.27 (>60) 02/24/19 07:30 Random Glucose 96 mg/dL (74-106) 02/24/19 07:30 Calcium 8.2 mg/dL (8.5-10.1) L 02/24/19 07:30 Total Bilirubin 0.2 mg/dL (0.2-1) 02/24/19 07:30 AST 14 U/L (15-37) L 02/24/19 07:30 ALT 11 U/L (13-61) L 02/24/19 07:30 Alkaline Phosphatase 58 U/L (45-117) 02/24/19 07:30 Total Protein 5.9 g/dl (6.4-8.2) L 02/24/19 07:30 Albumin 3.2 g/dl (3.4-5.0) L 02/24/19 07:30 lab noted Assessment: 02/24/19 10:57 withdrawal sx Plan: continue detox
[2019-02-24] MEDS: THIAMINE HCL 100 MG TABLET (FP) PO SCH (22:24)
[2019-02-25] MEDS: chlordiazePOXIDE HCL 25 MG CAPSULE PO SCH ×2 (05:24→10:21)
[2019-02-25] MEDS: PRENATAL VITAMINS W/ FOLIC ACID TABLET (FP) PO SCH (10:20)
[2019-02-25] MEDS: METHADONE HCL 40 MG DISPERSABLE TABLET PO SCH (10:21)
[2019-02-25] MEDS: NICOTINE 21 MG/24 HOURS TOPICAL PATCH TD SCH (10:23)
[2019-02-25 13:20] VITALS: BP 106/68; PULSE 72; TEMP 96.8
[2019-02-25] MEDS ORDERED: chlordiazePOXIDE HCL 10 MG CAPSULE PO PRN (17:00)
[2019-02-25] MEDS ORDERED: chlordiazePOXIDE HCL 10 MG CAPSULE PO SCH (17:00)
--- NOTE | 2019-02-25 17:14 | PN ---
S CIWA - CIWA Score Nausea/Vomitin-No Nausea/No Vomiting Muscle Tremors: 3 Anxiety: 3 Agitation: 2 Paroxysmal Sweats: 3 Orientation: 0-Oriented Tacttile Disturbances: 0-None Auditory Disturbances: 0-None Visual Disturbances: 0-None Headache: 0-None Present CIWA-Ar Total Score: 11 [facility] Progress Note (SOAP) Subjective: Sweating, Tremors. Objective: PATIENT A & O X 3, OBSERVED AMBULATING ON UNIT. IN NO ACUTE DISTRESS. 02/25/19 17:13 Vital Signs Temperature 96.8 F L 02/25/19 13:20 Pulse Rate 72 02/25/19 13:20 Respiratory Rate 16 02/25/19 13:20 Blood Pressure 106/68 02/25/19 13:20 O2 Sat by Pulse Oximetry (%) Laboratory Tests 02/24/19 02/24/19 02/24/19 07:30 07:30 07:30 WBC 6.9 RBC 4.15 Hgb 13.2 Hct 42.0 MCV 101.2 H MCH 31.9 MCHC 31.5 L RDW 14.7 Plt Count 270 MPV 8.1 Sodium 141 Potassium 4.3 Chloride 106 Carbon Dioxide 31 Anion Gap 4 L BUN 22 H Creatinine 0.9 Creat Clearance w eGFR 88.27 Random Glucose 96 Calcium 8.2 L Total Bilirubin 0.2 AST 14 L ALT 11 L Alkaline Phosphatase 58 Total Protein 5.9 L Albumin 3.2 L RPR Titer Nonreactive LABS NOTED. Assessment: 02/25/19 17:13 WITHDRAWAL SYMPTOMS. Plan: CONTINUE DETOX.
--- NOTE | 2019-02-25 17:17 | DS ---
[facility] Detox Discharge Summary Admission Date: 02/23/19 Discharge Date: 02/25/19 - History Present History: Alcohol Dependence, Cannabis Dependence, Opioid Dependence Additional Comments: PATIENT REPORTS PERSONAL ISSUE THAT HE HAS TO ATTEND TO AND THAT HE DOES NOT WISH TO REMAIN TO COMPLETE DETOX REGIMEN. RISKS OF LEAVING DETOX UNIT AGAINST MEDICAL ADVICE AND PRIOR TO COMPLETION OF DETOX REGIMEN EXPLAINED TO PATIENT. PATIENT ADVISED TO GO IMMEDIATELY TO NEAREST ER SHOULD ANY INTOLERABLE WITHDRAWAL / DETOX SYMPTOMS DEVELOP AT ANY TIME. PATIENT VERBALIZED UNDERSTANDING OF ALL INFORMATION / RECOMMENDATIONS PRESENTED TO HIM PRIOR TO DEPARTURE FROM DETOX UNIT. PATIENT LEFT DETOX UNIT IN STABLE MEDICAL CONDITION. Pertinent Past History: Nicotine Dependence, Weight Loss, M.M.T.P., Depression. - Physical Exam Results Vital Signs: Vital Signs Temperature 96.8 F L 02/25/19 13:20 Pulse Rate 72 02/25/19 13:20 Respiratory Rate 16 02/25/19 13:20 Blood Pressure 106/68 02/25/19 13:20 O2 Sat by Pulse Oximetry (%) Pertinent Admission Physical Exam Findings: WITHDRAWAL SYMPTOMS. Laboratory Tests 02/24/19 02/24/19 02/24/19 07:30 07:30 07:30 WBC 6.9 RBC 4.15 Hgb 13.2 Hct 42.0 MCV 101.2 H MCH 31.9 MCHC 31.5 L RDW 14.7 Plt Count 270 MPV 8.1 Sodium 141 Potassium 4.3 Chloride 106 Carbon Dioxide 31 Anion Gap 4 L BUN 22 H Creatinine 0.9 Creat Clearance w eGFR 88.27 Random Glucose 96 Calcium 8.2 L Total Bilirubin 0.2 AST 14 L ALT 11 L Alkaline Phosphatase 58 Total Protein 5.9 L Albumin 3.2 L RPR Titer Nonreactive LABS NOTED. - Treatment Hospital Course: Detox Protocol Followed, Detoxed Safely - Medication Discharge Medications: Ambulatory Orders Methadone [Dolophine -] 40 mg PO DAILY 02/23/19 - Diagnosis (1) Alcohol dependence, uncomplicated Status: Acute (2) Cannabis dependence, uncomplicated Status: Chronic (3) Methadone maintenance therapy patient Status: Chronic (4) Nicotine dependence Status: Chronic Qualifiers: Nicotine product type: cigarettes Substance use status: uncomplicated Qualified Code(s): F17.210 - Nicotine dependence, cigarettes, uncomplicated (5) Weight decreased Status: Chronic - AMA Did Patient Leave Against Medical Advice: Yes (PT. HAD PERSONAL ISSUE AND DID NOT WISH TO REMAIN TO COMPLETE DETOX REGIMEN)
[2019-02-26] MEDS ORDERED: chlordiazePOXIDE HCL 10 MG CAPSULE PO SCH (17:00)
== END 2019-02-25 14:40 | disposition left against medical advice (07) | DRG 770 ==
LOC: YASAS 11:45 → Y3N 14:17
PROVIDERS: ADMIT Surgery; ATTEND Surgery
PROC: HZ2ZZZZ Detoxification Services for Substance Abuse Treatment (ICD-10-PCS; principal; 2019-02-23)
DX: F10.230 Alcohol dependence with withdrawal, uncomplicated (principal); F14.20 Cocaine dependence, uncomplicated; F12.20 Cannabis dependence, uncomplicated; F11.20 Opioid dependence, uncomplicated; F17.213 Nicotine dependence, cigarettes, with withdrawal; F32.9 Major depressive disorder, single episode, unspecified; R63.4 Abnormal weight loss; Z68.21 Body mass index [BMI] 21.0-21.9, adult; Z59.0 Homelessness
CPT/HCPCS: 36415; 80053; 85027; 86593

== ENCOUNTER 2019-04-27 11:50 | Inpatient (IN) | payer OTHER ==
[2019-04-27 12:35] VITALS: BMI 21.0
--- NOTE | 2019-04-27 13:04 | HP ---
CIWA Score Nausea/Vomitin Muscle Tremors: 3 Anxiety: 3 Agitation: 2 Paroxysmal Sweats: 2 Orientation: 0-Oriented Tacttile Disturbances: 1-Very Mild Itch/Numbness Auditory Disturbances: 0-None Visual Disturbances: 1-Very Mild Sensitivity Headache: 1-Very Mild CIWA-Ar Total Score: 15 - Admission Criteria OASAS Guidelines: Admission for Medically Managed Detox: Requires at least one of the followin. CIWA greater than 12 2. Seizures within the past 24 hours 3. Delirium tremens within the past 24 hours 4. Hallucinations within the past 24 hours 5. Acute intervention needed for co occurring medical disorder 6. Acute intervention needed for co occurring psychiatric disorder 7. Severe withdrawal that cannot be handled at a lower level of care (continued vomiting, continued diarrhea, abnormal vital signs) requiring intravenous medication and/or fluids 8. Patient presents the following: CIWA greater than 12 Admission Criteria Met: Admission criteria met Admission ROS [facility] Chief Complaint: I want to get off drugs and get my life back together Allergies/Adverse Reactions: Allergies Allergy/AdvReac Type Severity Reaction Status Date / Time No Known Allergies Allergy Verified 04/27/19 12:31 History of Present Illness: 53 year old man presents for detox from alcohol. His last treatment at [facility] was in January of this year. Patient is on methadone maintenance at [facility] in the [place]. He was last dosed today 40mg, has a bottle for tomorrow. Patient reports one time black out from alcohol intoxication, he denies seizure related to alcohol. Exam Limitations: No Limitations - Ebola screening Have you traveled outside of the country in the last 21 days: No (N) Have you had contact with anyone from an Ebola affected area: No Have you been sick,other than usual withdrawal symptoms: No Do you have a fever: No - Review of Systems Constitutional: Loss of Appetite, Changes in sleep, Unintentional Wgt. Loss EENT: reports: Blurred Vision Respiratory: reports: Productive cough Cardiac: reports: No Symptoms Reported GI: reports: Poor Appetite, Abdominal cramping : reports: No Symptoms Reported Musculoskeletal: reports: Muscle Pain, Muscle Weakness Integumentary: reports: Flushing Neuro: reports: Numbness, Tremors, Weakness Endocrine: reports: No Symptoms Reported Hematology: reports: No Symptoms Reported Psychiatric: reports: Anxious Other Systems: Reviewed and Negative Patient History - Patient Medical History Hx Anemia: No Hx Asthma: No Hx Chronic Obstructive Pulmonary Disease (COPD): No Hx Cancer: No Hx Cardiac Disorders: No Hx Congestive Heart Failure: No Hx Hypertension: No Hx Hypercholesterolemia: No Hx Pacemaker: No HX Cerebrovascular Accident: No Hx Seizures: No Hx Dementia: No Hx Diabetes: No Hx Gastrointestinal Disorders: No Hx Liver Disease: No Hx Genitourinary Disorders: No Hx Sexually Transmitted Disorders: No Hx Renal Disease (ESRD): No Hx Thyroid Disease: No Hx Human Immunodeficiency Virus (HIV): No Hx Hepatitis C: No Hx Depression: No Hx Suicide Attempt: No Hx Bipolar Disorder: No Hx Schizophrenia: No - Patient Surgical History Past Surgical History: Yes Hx Neurologic Surgery: No Hx Cataract Extraction: No Hx Cardiac Surgery: No Hx Lung Surgery: No Hx Breast Surgery: No Hx Breast Biopsy: No Hx Abdominal Surgery: Yes (left inguinal hernia repair age 7) Hx Appendectomy: No Hx Cholecystectomy: No Hx Genitourinary Surgery: No Hx Section: No Hx Orthopedic Surgery: No Other Surgical History: left inguinal hernia repair Anesthesia Reaction: No - PPD History Previous Implant?: Yes Documented Results: Negative w/proof Implanted On Prior [facility] Admission?: Yes Date: 10/15/18 Results: 0 MM PPD to be Administered?: No - Smoking Cessation Smoking history: Current every day smoker Have you smoked in the past 12 months: Yes Aproximately how many cigarettes per day: 10 Cigars Per Day: 0 Hx Chewing Tobacco Use: No Initiated information on smoking cessation: Yes 'Breaking Loose' booklet given: 04/27/19 - Substances abused Alcohol Substance route: Oral Frequency: Daily Amount used: 1 pt - leoonr Age of first use: 18 Date of last use: 04/27/19 Heroin Substance route: Inhalation Frequency: 3-6 times per week Amount used: 2bags Age of first use: 35 Date of last use: 04/26/19 Crack Substance route: Smoking Frequency: 3-6 times per week Amount used: 3bags Age of first use: 22 Date of last use: 04/26/19 Family Disease History - Family Disease History Family Disease History: Other: Father (, parkinsons dx), Mother (AIDS , hx ivdu), Brother (1 - living - healthy), Sister (3 - living- healthy) Admission Physical Exam [facility] - Vital Signs Vital Signs: Vital Signs - 24 hr 04/27/19 12:28 Temperature 97.5 F L Pulse Rate 70 Respiratory 18 Rate Blood Pressure 101/69 - Physical General Appearance: Yes: Disheveled, Thin HEENTM: Yes: Hearing grossly Normal, Normocephalic, Normal Voice Respiratory: Yes: Chest Non-Tender, Lungs Clear, No Respiratory Distress, No Accessory Muscle Use Neck: Yes: No masses,lesions,Nodules Breast: Yes: Breast Exam Deferred Cardiology: Yes: Regular Rhythm, Regular Rate, S1, S2 Abdominal: Yes: Normal Bowel Sounds, Non Tender, Soft Genitourinary: Yes: Within Normal Limits Back: Yes: Within Normal Limits Musculoskeletal: Yes: Muscle Pain, Muscle weakness Extremities: Yes: Normal Range of Motion, Non-Tender, Tremors Neurological: Yes: 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 NML intact, Fully Oriented, Alert, Normal Mood/ Affect, Normal Response Integumentary: Yes: Normal Color, Clammy Lymphatic: Yes: Within Normal Limits - Diagnostic (1) Alcohol dependence, uncomplicated Current Visit: Yes Status: Acute (2) Methadone maintenance therapy patient Current Visit: No Status: Chronic (3) Nicotine dependence Current Visit: No Status: Acute Qualifiers: Nicotine product type: cigarettes Substance use status: uncomplicated Qualified Code(s): F17.210 - Nicotine dependence, cigarettes, uncomplicated Cleared for Admission S - Detox or Rehab [facility] Level of Care: Medically Managed Detox Regimen/Protocol: Librium Breathalyzer - Breathalyzer Breathalyzer: 0 Urine Drug Screen - Test Device Lot number: [id number] Expiration date: 01/24/21 - Control Is test valid?: Yes - Results Drug screen NEGATIVE: No Urine drug screen results: THC-Marijuana, DANNIE-Cocaine, FEN-Fentanyl, MOP-Opiates , MTD-Methadone Inpatient Rehab Admission - Rehab Decision to Admit Inpatient rehab admission?: No
[2019-04-27] MEDS ORDERED: BISMUTH SUBSALICYLATE 524 MG/30 ML UD PO PRN (13:14)
[2019-04-27] MEDS ORDERED: MAGNESIUM HYDROX 2400MG/30ML ORAL SUSPENSION 30 ML CUP PO PRN (13:14)
[2019-04-27] MEDS ORDERED: MENTHOL/PHENOL 1 EACH UD MM PRN (13:14)
[2019-04-27] MEDS ORDERED: IBUPROFEN 400 MG TABLET (FP) PO PRN ×2 (13:14)
[2019-04-27] MEDS ORDERED: ONDANSETRON *ODT* 4 MG TABLET SL PRN (13:14)
[2019-04-27] MEDS ORDERED: MELATONIN 5 MG TABLETS PO PRN (13:14)
[2019-04-27] MEDS ORDERED: ACETAMINOPHEN 325 MG TABLET (FP) PO PRN ×2 (13:14)
[2019-04-27] MEDS ORDERED: MAGNESIUM CITRATE 300 ML BOTTLE PO PRN (13:14)
[2019-04-27] MEDS ORDERED: NICOTINE POLACRILEX 2 MG GUM BUC PRN (13:14)
[2019-04-27] MEDS ORDERED: chlordiazePOXIDE HCL 10 MG CAPSULE PO PRN (13:14)
[2019-04-27] MEDS ORDERED: hydrOXYzine PAMOATE 25 MG CAPSULE (FP) PO PRN (13:14)
[2019-04-27] MEDS ORDERED: MAG HYDROX/AL HYDROX/SIMETH 30 ML UNIT-DOSE CUP PO PRN (13:14)
[2019-04-27] MEDS ORDERED: METHOCARBAMOL 500 MG TABLET PO PRN (13:14)
[2019-04-27] MEDS ORDERED: chlordiazePOXIDE HCL 25 MG CAPSULE PO ONE (13:45)
[2019-04-27] MEDS: NICOTINE 14 MG/24 HOURS TOPICAL PATCH TD SCH (14:04)
[2019-04-27] MEDS: THIAMINE HCL 100 MG TABLET (FP) PO SCH (22:53)
[2019-04-27] MEDS: chlordiazePOXIDE HCL 25 MG CAPSULE PO SCH (22:53)
[2019-04-28] MEDS: METHADONE HCL 40 MG DISPERSABLE TABLET PO SCH (05:43)
[2019-04-28] MEDS: chlordiazePOXIDE HCL 25 MG CAPSULE PO SCH ×2 (05:43→13:55)
--- NOTE | 2019-04-28 09:29 | PN ---
S CIWA - CIWA Score Nausea/Vomitin-No Nausea/No Vomiting Muscle Tremors: 3 Anxiety: 2 Agitation: 2 Paroxysmal Sweats: 3 Orientation: 0-Oriented Tacttile Disturbances: 0-None Auditory Disturbances: 0-None Visual Disturbances: 0-None Headache: 0-None Present CIWA-Ar Total Score: 10 [facility] Progress Note (SOAP) Subjective: cough x 3 weeks sleep disturbance sweats Objective: 04/28/19 09:27 a & O x 3 gait steady tremors to arms breath sounds clear no cough during visit Vital Signs Temperature 97.6 F 04/28/19 06:06 Pulse Rate 52 L 04/28/19 06:06 Respiratory Rate 18 04/28/19 06:06 Blood Pressure 109/71 04/28/19 06:06 O2 Sat by Pulse Oximetry (%) labs pending at this time Assessment: 04/28/19 09:28 withdrawal sx cough Plan: continue detox Cough expectorant xray
[2019-04-28] MEDS: PRENATAL VITAMINS W/ FOLIC ACID TABLET (FP) PO SCH (10:11)
[2019-04-28] MEDS: NICOTINE 14 MG/24 HOURS TOPICAL PATCH TD SCH (10:12)
[2019-04-28 10:51] LABS: ALBUMIN 3.4 g/dl (3.4-5.0); BILIRUBIN,TOTAL 0.2 mg/dL (0.2-1); POTASSIUM 4.5 mmol/L (3.5-5.1); TOT PROT 6.4 g/dl (6.4-8.2)
[2019-04-28 10:56] LABS: HEMATOCRIT 41.4 % (35.4-49); HEMOGLOBIN 13.7 GM/dL (11.7-16.9); MCH 33.1 pg (25.7-33.7); MCHC 33.1 g/dl (32.0-35.9); PLATELET COUNT 375 K/MM3 (134-434); RBC 4.14 M/mm3 (4.00-5.60); RDW 14.4 % (11.9-15.9); WHITE BLOOD COUNT 9.3 K/mm3 (4.0-10.0)
[2019-04-28] MEDS: guaiFENesin/D-METHORPHAN HB 10 ML UNIT-DOSE CUPS PO SCH ×3 (12:35→23:30)
[2019-04-28] MEDS: chlordiazePOXIDE 5 MG CAPSULE PO SCH (21:00)
[2019-04-28] MEDS: THIAMINE HCL 100 MG TABLET (FP) PO SCH (22:07)
[2019-04-29] MEDS: chlordiazePOXIDE 5 MG CAPSULE PO SCH ×2 (05:39→14:39)
[2019-04-29] MEDS: METHADONE HCL 40 MG DISPERSABLE TABLET PO SCH (05:39)
[2019-04-29] MEDS: guaiFENesin/D-METHORPHAN HB 10 ML UNIT-DOSE CUPS PO SCH ×4 (06:12→23:05)
[2019-04-29] MEDS: NICOTINE 14 MG/24 HOURS TOPICAL PATCH TD SCH (10:17)
[2019-04-29] MEDS: PRENATAL VITAMINS W/ FOLIC ACID TABLET (FP) PO SCH (10:17)
--- NOTE | 2019-04-29 11:28 | PN ---
S CIWA - CIWA Score Nausea/Vomitin-Mild Nausea/No Vomiting Muscle Tremors: 2 Anxiety: 1-Mildly Anxious Agitation: 2 Paroxysmal Sweats: No Perspiration Orientation: 0-Oriented Tacttile Disturbances: 0-None Auditory Disturbances: 0-None Visual Disturbances: 0-None Headache: 0-None Present CIWA-Ar Total Score: 6 S Progress Note (SOAP) Subjective: feeling better today meet with counselor [facility] on 04/30/19 Objective: 04/29/19 11:29 Vital Signs Temperature 97.9 F 04/29/19 09:19 Pulse Rate 64 04/29/19 09:19 Respiratory Rate 20 04/29/19 09:19 Blood Pressure 96/65 04/29/19 09:19 O2 Sat by Pulse Oximetry (%) Laboratory Last Values WBC 9.3 K/mm3 (4.0-10.0) 04/28/19 07:40 RBC 4.14 M/mm3 (4.00-5.60) 04/28/19 07:40 Hgb 13.7 GM/dL (11.7-16.9) 04/28/19 07:40 Hct 41.4 % (35.4-49) 04/28/19 07:40 MCV 100.0 fl (80-96) H 04/28/19 07:40 MCH 33.1 pg (25.7-33.7) 04/28/19 07:40 MCHC 33.1 g/dl (32.0-35.9) 04/28/19 07:40 RDW 14.4 % (11.9-15.9) 04/28/19 07:40 Plt Count 375 K/MM3 (134-434) D 04/28/19 07:40 MPV 8.0 fl (7.5-11.1) 04/28/19 07:40 Sodium 142 mmol/L (136-145) 04/28/19 07:40 Potassium 4.5 mmol/L (3.5-5.1) 04/28/19 07:40 Chloride 104 mmol/L (98-107) 04/28/19 07:40 Carbon Dioxide 30 mmol/L (21-32) 04/28/19 07:40 Anion Gap 8 MMOL/L (8-16) 04/28/19 07:40 BUN 21 mg/dL (7-18) H 04/28/19 07:40 Creatinine 1.0 mg/dL (0.55-1.3) 04/28/19 07:40 Est GFR (CKD-EPI)AfAm 99.15 04/28/19 07:40 Est GFR (CKD-EPI)NonAf 85.55 04/28/19 07:40 Random Glucose 104 mg/dL (74-106) 04/28/19 07:40 Calcium 9.0 mg/dL (8.5-10.1) 04/28/19 07:40 Total Bilirubin 0.2 mg/dL (0.2-1) 04/28/19 07:40 AST 13 U/L (15-37) L 04/28/19 07:40 ALT 11 U/L (13-61) L 04/28/19 07:40 Alkaline Phosphatase 72 U/L (45-117) 04/28/19 07:40 Total Protein 6.4 g/dl (6.4-8.2) 04/28/19 07:40 Albumin 3.4 g/dl (3.4-5.0) 04/28/19 07:40 RPR Titer Nonreactive (NONREACTIVE) 04/28/19 07:40 lab noted encourage oral fluid Assessment: 04/29/19 11:30 mild alcohol withdrawal sx Plan: continue detox
[2019-04-29] MEDS ORDERED: chlordiazePOXIDE HCL 10 MG CAPSULE PO PRN (21:00)
[2019-04-29] MEDS: THIAMINE HCL 100 MG TABLET (FP) PO SCH (22:04)
[2019-04-29] MEDS: chlordiazePOXIDE HCL 10 MG CAPSULE PO SCH (22:04)
[2019-04-30] MEDS: METHADONE HCL 40 MG DISPERSABLE TABLET PO SCH (05:54)
[2019-04-30] MEDS: chlordiazePOXIDE HCL 10 MG CAPSULE PO SCH (05:54)
[2019-04-30] MEDS: guaiFENesin/D-METHORPHAN HB 10 ML UNIT-DOSE CUPS PO SCH (05:56)
[2019-04-30 09:06] VITALS: BP 103/66; PULSE 64; TEMP 96
--- NOTE | 2019-04-30 17:01 | DS ---
[facility] Detox Discharge Summary Admission Date: 04/27/19 Discharge Date: 04/30/19 - History Present History: Alcohol Dependence, Opioid Dependence, MMTP Additional Comments: PATIENT RETURNING HOME TO ATTEND TO PERSONAL MATTERS, THEN WILL RETURN TO APPLY FOR ADMISSION TO [facility] ([place], [place]) WITHIN THE NEXT FEW DAYS. PATIENT WAS DISCHARGED FROM DETOX UNIT IN STABLE MEDICAL CONDITION. Pertinent Past History: Nicotine Dependence. - Physical Exam Results Vital Signs: Vital Signs Temperature 96 F L 04/30/19 09:05 Pulse Rate 64 04/30/19 09:05 Respiratory Rate 18 04/30/19 09:05 Blood Pressure 103/66 04/30/19 09:05 O2 Sat by Pulse Oximetry (%) Pertinent Admission Physical Exam Findings: WITHDRAWAL SYMPTOMS. Laboratory Tests 04/28/19 04/28/19 04/28/19 07:40 07:40 07:40 WBC 9.3 RBC 4.14 Hgb 13.7 Hct 41.4 MCV 100.0 H MCH 33.1 MCHC 33.1 RDW 14.4 Plt Count 375 D MPV 8.0 Sodium 142 Potassium 4.5 Chloride 104 Carbon Dioxide 30 Anion Gap 8 BUN 21 H Creatinine 1.0 Est GFR (CKD-EPI)AfAm 99.15 Est GFR (CKD-EPI)NonAf 85.55 Random Glucose 104 Calcium 9.0 Total Bilirubin 0.2 AST 13 L ALT 11 L Alkaline Phosphatase 72 Total Protein 6.4 Albumin 3.4 RPR Titer Nonreactive LABS NOTED. - Treatment Hospital Course: Detox Protocol Followed, Detoxed Safely, Responded well, Discharged Condition Good Patient has Accepted a Rehab Referral to: PT. WILL RETURN TO APPLY TO [facility] IN NEXT FEW DAYS. - Diagnosis (1) Alcohol dependence, uncomplicated Status: Acute (2) Nicotine dependence Status: Acute Qualifiers: Nicotine product type: cigarettes Substance use status: uncomplicated Qualified Code(s): F17.210 - Nicotine dependence, cigarettes, uncomplicated (3) Methadone maintenance therapy patient Status: Chronic - AMA Did Patient Leave Against Medical Advice: No
== END 2019-04-30 09:34 | disposition home or self-care (01) | DRG 773 ==
LOC: YASAS 11:50 → Y3N 13:20
PROVIDERS: ADMIT Surgery; ATTEND Surgery
PROC: HZ2ZZZZ Detoxification Services for Substance Abuse Treatment (ICD-10-PCS; principal; 2019-04-27)
DX: F10.230 Alcohol dependence with withdrawal, uncomplicated (principal); F11.20 Opioid dependence, uncomplicated; F14.20 Cocaine dependence, uncomplicated; F12.20 Cannabis dependence, uncomplicated; F17.210 Nicotine dependence, cigarettes, uncomplicated; R05 Cough; Z59.0 Homelessness
CPT/HCPCS: 36415; 71046-TC-FY; 80053; 85027; 86593

== ENCOUNTER 2019-05-01 13:47 | Inpatient (IN) | payer OTHER ==
[2019-05-01 15:53] VITALS: BMI 22.1
[2019-05-01] MEDS ORDERED: MAGNESIUM HYDROX 2400MG/30ML ORAL SUSPENSION 30 ML CUP PO PRN (18:20)
[2019-05-01] MEDS ORDERED: MAGNESIUM CITRATE 300 ML BOTTLE PO PRN (18:20)
[2019-05-01] MEDS ORDERED: MENTHOL/PHENOL 1 EACH UD MM PRN (18:20)
[2019-05-01] MEDS ORDERED: LOPERAMIDE HCL 2 MG CAPSULE PO PRN (18:20)
[2019-05-01] MEDS ORDERED: hydrOXYzine PAMOATE 25 MG CAPSULE (FP) PO PRN (18:20)
[2019-05-01] MEDS ORDERED: guaiFENesin 200 MG/10 ML 10 ML UNIT-DOSE CUPS PO PRN (18:20)
[2019-05-01] MEDS ORDERED: P-EPHED 60MG/TRIPROLIDI 2.5MG TABLET PO PRN (18:20)
[2019-05-01] MEDS ORDERED: MAG HYDROX/AL HYDROX/SIMETH 30 ML UNIT-DOSE CUP PO PRN (18:20)
[2019-05-01] MEDS ORDERED: ACETAMINOPHEN 325 MG TABLET (FP) PO PRN (18:20)
[2019-05-01] MEDS ORDERED: IBUPROFEN 400 MG TABLET (FP) PO PRN (18:20)
--- NOTE | 2019-05-01 18:20 | HP ---
CIWA Score - Admission Criteria OASAS Guidelines: Admission for Medically Managed Detox: Requires at least one of the followin. CIWA greater than 12 2. Seizures within the past 24 hours 3. Delirium tremens within the past 24 hours 4. Hallucinations within the past 24 hours 5. Acute intervention needed for co occurring medical disorder 6. Acute intervention needed for co occurring psychiatric disorder 7. Severe withdrawal that cannot be handled at a lower level of care (continued vomiting, continued diarrhea, abnormal vital signs) requiring intravenous medication and/or fluids 8. Admission ROS [facility] Chief Complaint: here for rehab from alcohol, cocaine, MJ use. Pt was discharged from detox yesterday after a 4 day stay for alcohol use. Pt completed detox- left for fdc yesterday, pt is homeless. Returned today for rehab admission- wants to go to [facility]. pt does not work. Has family in [place], [place]. 53 yo with no med problems, on no meds except MAT methadone. Dosed today at [facility] in [place]- 40mg/day. Allergies/Adverse Reactions: Allergies Allergy/AdvReac Type Severity Reaction Status Date / Time No Known Allergies Allergy Verified 05/01/19 15:44 - Ebola screening Have you traveled outside of the country in the last 21 days: No (N) Have you had contact with anyone from an Ebola affected area: No Do you have a fever: No Patient History - Patient Medical History Hx Anemia: No Hx Asthma: No Hx Chronic Obstructive Pulmonary Disease (COPD): No Hx Cancer: No Hx Cardiac Disorders: No Hx Congestive Heart Failure: No Hx Hypertension: No Hx Hypercholesterolemia: No Hx Pacemaker: No HX Cerebrovascular Accident: No Hx Seizures: No Hx Dementia: No Hx Diabetes: No Hx Gastrointestinal Disorders: No Hx Liver Disease: No Hx Genitourinary Disorders: No Hx Sexually Transmitted Disorders: No Hx Renal Disease (ESRD): No Hx Thyroid Disease: No Hx Human Immunodeficiency Virus (HIV): No Hx Hepatitis C: No Hx Depression: No Hx Suicide Attempt: No Hx Bipolar Disorder: No Hx Schizophrenia: No - Patient Surgical History Past Surgical History: Yes Hx Neurologic Surgery: No Hx Cataract Extraction: No Hx Cardiac Surgery: No Hx Lung Surgery: No Hx Breast Surgery: No Hx Breast Biopsy: No Hx Abdominal Surgery: Yes (left inguinal hernia repair age 7) Hx Appendectomy: No Hx Cholecystectomy: No Hx Genitourinary Surgery: No Hx Section: No Hx Orthopedic Surgery: No Other Surgical History: left inguinal hernia repair Anesthesia Reaction: No - PPD History Date: 10/15/18 Results: 0 MM - Smoking Cessation Smoking history: Current every day smoker Have you smoked in the past 12 months: Yes Aproximately how many cigarettes per day: 10 Cigars Per Day: 0 Hx Chewing Tobacco Use: No Initiated information on smoking cessation: Yes 'Breaking Loose' booklet given: 05/01/19 - Substance & Tx. History Hx Alcohol Use: Yes Substance Use Type: Alcohol, Cocaine, Heroin, Prescribed - Substances abused Alcohol Substance route: Oral Frequency: Daily Amount used: 1 pt - henessy Age of first use: 18 Date of last use: 04/27/19 Heroin Substance route: Inhalation Frequency: 3-6 times per week Amount used: 2bags Age of first use: 35 Date of last use: 04/26/19 Crack Substance route: Smoking Frequency: 3-6 times per week Amount used: 3bags Age of first use: 22 Date of last use: 04/26/19 Cocaine Substance route: Smoking Frequency: Daily Amount used: 3 bags Age of first use: 17 Date of last use: 04/26/19 Family Disease History - Family Disease History Family Disease History: Other: Father (, parkinsons dx), Mother (AIDS , hx ivdu), Brother (1 - living - healthy), Sister (3 - living- healthy) Admission Physical Exam BHS - Vital Signs Vital Signs: Vital Signs - 24 hr 05/01/19 05/01/19 15:44 18:05 Temperature 97.6 F 97.6 F Pulse Rate 68 68 Respiratory 20 20 Rate Blood Pressure 115/76 115/76 - Physical General Appearance: Yes: Cachetic, Thin HEENTM: Yes: Within Normal Limits, Hearing grossly Normal, Normal Voice, LIVIER Respiratory: Yes: Within Normal Limits, Chest Non-Tender, Lungs Clear Neck: Yes: Within Normal Limits, No masses,lesions,Nodules Cardiology: Yes: Within Normal Limits, Regular Rhythm, Regular Rate Abdominal: Yes: Within Normal Limits, Normal Bowel Sounds Genitourinary: Yes: Within Normal Limits Back: Yes: Within Normal Limits, Normal Inspection Musculoskeletal: Yes: Within Normal Limits Extremities: Yes: Within Normal Limits Neurological: Yes: Within Normal Limits, 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 intact, Fully Oriented Integumentary: Yes: Within Normal Limits, Other (old scars on legs, thickened, hpertrophic and discolored nails) Lymphatic: Yes: Within Normal Limits Breathalyzer - Breathalyzer Breathalyzer: 0 Urine Drug Screen - Test Device Lot number: [id number] Expiration date: 01/24/21 - Control Is test valid?: Yes - Results Drug screen NEGATIVE: No Urine drug screen results: MTD-Methadone Inpatient Rehab Admission - Rehab Decision to Admit Inpatient rehab admission?: Yes - Initial Determination Are CD services needed?: Yes Free of communicable disease: Yes Not in need of hospitalization: Yes - Rehab Admission Criteria Previous failed treatment: Yes Poor recovery environment: Yes Comorbidities: Yes Lacks judgement: Yes Patient is meeting Inpatient Rehab admission criteria:: Yes
[2019-05-01] MEDS: THIAMINE HCL 100 MG TABLET (FP) PO SCH (21:34)
[2019-05-01] MEDS ORDERED: MELATONIN 5 MG TABLETS PO PRN (22:00)
[2019-05-02] MEDS: METHADONE HCL 10 MG TABLET PO SCH (08:01)
[2019-05-02] MEDS: NICOTINE 21 MG/24 HOURS TOPICAL PATCH TD SCH (09:33)
[2019-05-02] MEDS: PRENATAL VITAMINS W/ FOLIC ACID TABLET (FP) PO SCH (09:33)
[2019-05-02] MEDS: THIAMINE HCL 100 MG TABLET (FP) PO SCH (21:37)
[2019-05-03] MEDS: METHADONE HCL 10 MG TABLET PO SCH (06:00)
[2019-05-03] MEDS: NICOTINE 21 MG/24 HOURS TOPICAL PATCH TD SCH (10:09)
[2019-05-03] MEDS: PRENATAL VITAMINS W/ FOLIC ACID TABLET (FP) PO SCH (10:09)
--- NOTE | 2019-05-03 11:02 | PN ---
BHS Progress Note Note: patient requests regular diet with bmi 22 ensure 120 ml bid
[2019-05-03] MEDS: THIAMINE HCL 100 MG TABLET (FP) PO SCH (21:28)
[2019-05-04] MEDS: METHADONE HCL 40 MG DISPERSABLE TABLET PO SCH (06:00)
[2019-05-04] MEDS: NICOTINE 21 MG/24 HOURS TOPICAL PATCH TD SCH (10:23)
[2019-05-04] MEDS: PRENATAL VITAMINS W/ FOLIC ACID TABLET (FP) PO SCH (10:23)
[2019-05-04] MEDS: THIAMINE HCL 100 MG TABLET (FP) PO SCH (22:07)
[2019-05-05] MEDS: METHADONE HCL 40 MG DISPERSABLE TABLET PO SCH (06:04)
[2019-05-05] MEDS: PRENATAL VITAMINS W/ FOLIC ACID TABLET (FP) PO SCH (10:03)
[2019-05-05] MEDS: NICOTINE 21 MG/24 HOURS TOPICAL PATCH TD SCH (10:03)
[2019-05-05] MEDS: THIAMINE HCL 100 MG TABLET (FP) PO SCH (21:52)
[2019-05-06] MEDS: METHADONE HCL 40 MG DISPERSABLE TABLET PO SCH (06:33)
[2019-05-06 07:19] VITALS: TEMP 97.3
[2019-05-06] MEDS: PRENATAL VITAMINS W/ FOLIC ACID TABLET (FP) PO SCH (10:06)
[2019-05-06] MEDS: NICOTINE 21 MG/24 HOURS TOPICAL PATCH TD SCH (10:06)
[2019-05-06] MEDS: THIAMINE HCL 100 MG TABLET (FP) PO SCH (22:13)
[2019-05-07] MEDS: METHADONE HCL 40 MG DISPERSABLE TABLET PO SCH (06:20)
[2019-05-07 06:52] VITALS: BP 107/70; PULSE 56
[2019-05-07] MEDS: PRENATAL VITAMINS W/ FOLIC ACID TABLET (FP) PO SCH (09:48)
[2019-05-07] MEDS: NICOTINE 21 MG/24 HOURS TOPICAL PATCH TD SCH (09:48)
--- NOTE | 2019-05-07 10:27 | PN ---
BHS Progress Note (SOAP) Subjective: Patient to be discharged today at his request. Objective: A+O x3, no neurological deficits noted, lungs clear, heart rate regular, abd soft, non-tender, non-distended, 05/07/19 10:26 Vital Signs (72 hours) 05/05/19 05/05/19 05/05/19 00:30 03:30 06:47 Temperature 97.8 F Pulse Rate 54 L Respiratory 18 18 18 Rate Blood Pressure 115/65 05/06/19 05/06/19 05/06/19 00:30 03:30 07:18 Temperature 97.3 F L Pulse Rate 55 L Respiratory 18 18 18 Rate Blood Pressure 97/65 05/07/19 05/07/19 05/07/19 00:30 03:30 06:52 Temperature 97.3 F L Pulse Rate 56 L Respiratory 18 18 16 Rate Blood Pressure 107/70 Assessment: Medically stable for discharge. Discharge DX: MMTP LBP Cannabis dependence Substance use mood disorder. Plan: Will return to [facility] for aftercare. Receives medical care from Dr. Chin Yang on [facility]. No discharge prescriptions needed,
== END 2019-05-07 10:31 | disposition home or self-care (01) | DRG 772 ==
LOC: YASAS 13:47 → Y5N 18:12 → UNDOADMIN 18:12 → Y3W 18:54
PROVIDERS: ADMIT Neuromusculoskeletal Medicine & OMM; ATTEND Neuromusculoskeletal Medicine & OMM
PROC: HZ42ZZZ Group Counseling for Substance Abuse Treatment, Cognitive-Behavioral (ICD-10-PCS; principal; 2019-05-01)
DX: F10.20 Alcohol dependence, uncomplicated (principal); F14.20 Cocaine dependence, uncomplicated; F11.20 Opioid dependence, uncomplicated; F12.20 Cannabis dependence, uncomplicated; F17.210 Nicotine dependence, cigarettes, uncomplicated; F19.24 Other psychoactive substance dependence with psychoactive substance-induced mood disorder; M54.5 Low back pain; Z59.0 Homelessness

== ENCOUNTER 2020-06-23 14:22 | Inpatient (IN) | payer OTHER ==
--- NOTE | 2020-06-23 14:39 | BHS.RME ---
Substance Use & Tx History - Substance Use History Alcohol Substance amount: one pint Vodka, rare beer Frequency of use: Daily Substance route: Oral Date of Last Use: 06/23/20 (First use age 16 y. No seizures, No blackouts. 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 NO OD. Has Narcan at home) Cocaine-Crack Substance amount: $10 Frequency of use: Daily Substance route: Smoking Date of Last Use: 06/22/20 (First use age 22 y) Marijuana/Hashish Substance amount: $20 Frequency of use: Less than 3 times per week Substance route: Smoking Date of Last Use: 06/22/20 (First use age 15 y) Nicotine Substance amount: 1/2 pack Frequency of use: Daily Substance route: Smoking Date of Last Use: 06/23/20 (First use age 16 y) Physical/Psych/Mental Status - Behavior General Behavior: Increased activity (restlessness, agitation) Eye Contact: Normal - Cooperativeness Cooperativeness: Cooperative - Thinking Thought Processes: Tight Thought content: Future oriented - Physical Health Problems Is patient presently having any pain?: Yes (lower left back pain, fell 2 days ago while intoxicated) Does patient presently have any injuries (include location): Yes (fell 2 days ago) Does patient currently have a fever: No CIWA Nausea/Vomitin-Mild Nausea/No Vomiting Muscle Tremors: 3 Anxiety: 3 Agitation: 1-Slight > Activity Paroxysmal Sweats: No Perspiration Orientation: 0-Oriented Tacttile Disturbances: 0-None Auditory Disturbances: 0-None Visual Disturbances: 0-None Headache: 0-None Present CIWA-Ar Total Score: 8
--- NOTE | 2020-06-23 15:51 | HP ---
CIWA Score Nausea/Vomitin-Mild Nausea/No Vomiting Muscle Tremors: 3 Anxiety: 3 Agitation: 1-Slight > Activity Paroxysmal Sweats: No Perspiration Orientation: 0-Oriented Tacttile Disturbances: 0-None Auditory Disturbances: 0-None Visual Disturbances: 0-None Headache: 0-None Present CIWA-Ar Total Score: 8 - Admission Criteria OASAS Guidelines: Admission for Medically Managed Detox: Requires at least one of the followin. CIWA greater than 12 2. Seizures within the past 24 hours 3. Delirium tremens within the past 24 hours 4. Hallucinations within the past 24 hours 5. Acute intervention needed for co occurring medical disorder 6. Acute intervention needed for co occurring psychiatric disorder 7. Severe withdrawal that cannot be handled at a lower level of care (continued vomiting, continued diarrhea, abnormal vital signs) requiring intravenous medication and/or fluids 8. Admitting History and Physical - Admission Chief Complaint: Bo Chaudhary is a 54 year old man with history of alcohol use disorder, heroin, marijuana, nicotine, crack cocaine, who presents to [facility] for detox History of Present Illness: CC: Bo Chaudhary is a 54 year old man with history of alcohol use disorder, heroin, marijuana, nicotine, crack cocaine, who presents to [facility] for detox. PMH: None. He was previously at [facility] in 04/27/19 - 04/30/19 for alcohol and opiate detox, which was completed. He presented December 25 2019 but did not meet criteria for admission at that time. PSH: None Psych: None Social: Lives with friend Legal: None Alcohol Substance amount: one pint Vodka, rare beer Frequency of use: Daily Substance route: Oral Date of Last Use: 06/23/20 (First use age 16 y. No seizures, No blackouts. 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 NO OD. Has Narcan at home) Cocaine-Crack Substance amount: $10 Frequency of use: Daily Substance route: Smoking Date of Last Use: 06/22/20 (First use age 22 y) Marijuana/Hashish Substance amount: $20 Frequency of use: Less than 3 times per week Substance route: Smoking Date of Last Use: 06/22/20 (First use age 15 y) Nicotine Substance amount: 1/2 pack Frequency of use: Daily Substance route: Smoking Date of Last Use: 06/23/20 (First use age 16 y) Xanax Substance amount: 1 bar Frequency: Few times a month Substance route: oral Date of Last Use: 06/19/20 (First age of use 49). History Source: Patient Limitations to Obtaining History: No Limitations - Smoking History Smoking history: Current every day smoker Have you smoked in the past 12 months: Yes Aproximately how many cigarettes per day: 10 - Alcohol/Substance Use Hx Alcohol Use: Yes Admission [facility] - HPI Chief Complaint: Bo Chaudhary is a 54 year old man with history of alcohol use disorder, heroin, marijuana, nicotine, crack cocaine, who presents to [facility] for detox Allergies/Adverse Reactions: Allergies Allergy/AdvReac Type Severity Reaction Status Date / Time No Known Allergies Allergy Verified 05/01/19 15:44 Exam Limitations: No Limitations - Ebola screening Have you traveled outside of the country in the last 21 days: No Have you had contact with anyone from an Ebola affected area: No Have you been sick,other than usual withdrawal symptoms: No Do you have a fever: No - Review of Systems Constitutional: No Symptoms Reported EENT: denies: Blurred Vision, Eye Pain, Ear Pain, Nose Congestion Respiratory: denies: Cough, Shortness of Breath Cardiac: denies: Chest Pain, Lightheadedness GI: reports: Nausea. denies: Constipated, Diarrhea, Vomiting : reports: No Symptoms Reported Musculoskeletal: denies: Joint Swelling, Joint Stiffness Integumentary: reports: Lesions (He reports an abscess forming on the left calf 4 days ago.) Neuro: denies: Headache, Numbness, Seizure Endocrine: reports: Change in Weight (No appetite recently) Hematology: denies: Blood Clots, Easy Bleeding Psychiatric: reports: Orientated x3 Patient History - Patient Medical History Hx Anemia: No Hx Asthma: No Hx Chronic Obstructive Pulmonary Disease (COPD): No Hx Cancer: No Hx Cardiac Disorders: No Hx Congestive Heart Failure: No Hx Hypertension: No Hx Hypercholesterolemia: No Hx Pacemaker: No HX Cerebrovascular Accident: No Hx Seizures: No Hx Dementia: No Hx Diabetes: No Hx Gastrointestinal Disorders: No Hx Liver Disease: No Hx Genitourinary Disorders: No Hx Sexually Transmitted Disorders: No Hx Renal Disease (ESRD): No Hx Thyroid Disease: No Hx Human Immunodeficiency Virus (HIV): No Hx Hepatitis C: No Hx Depression: No Hx Suicide Attempt: No Hx Bipolar Disorder: No Hx Schizophrenia: No - Patient Surgical History Past Surgical History: Yes Hx Neurologic Surgery: No Hx Cataract Extraction: No Hx Cardiac Surgery: No Hx Lung Surgery: No Hx Breast Surgery: No Hx Breast Biopsy: No Hx Abdominal Surgery: Yes (left inguinal hernia repair age 7) Hx Appendectomy: No Hx Cholecystectomy: No Hx Genitourinary Surgery: No Hx Section: No Hx Orthopedic Surgery: No Other Surgical History: left inguinal hernia repair Anesthesia Reaction: No - PPD History Date: 10/15/18 Results: 0 MM - Smoking Cessation Smoking history: Current every day smoker Have you smoked in the past 12 months: Yes Aproximately how many cigarettes per day: 10 Cigars Per Day: 0 Hx Chewing Tobacco Use: No Initiated information on smoking cessation: Yes 'Breaking Loose' booklet given: 06/23/20 Admission Physical Exam [facility] - Physical General Appearance: Yes: No Apparent Distress, Thin, Other (sleepy) HEENTM: Yes: EOMI, Normocephalic Respiratory: Yes: Lungs Clear, Normal Breath Sounds, No Respiratory Distress, No Accessory Muscle Use Neck: Yes: Supple Cardiology: Yes: Regular Rhythm, Regular Rate, S1, S2 Abdominal: Yes: Normal Bowel Sounds, Non Tender, Flat, Soft Musculoskeletal: Yes: Within Normal Limits, full range of Motion Extremities: Yes: Within Normal Limits, Normal Range of Motion 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, Motor Strength 5/5 Integumentary: Yes: Other (left lower extremity lesion 2cm x 2cm with raised erythema) Cleared for Admission [facility] - Detox or Rehab [facility] Level of Care: Medically Managed Detox Regimen/Protocol: Librium Breathalyzer - Breathalyzer Breathalyzer: 0 Urine Drug Screen - Test Device Lot number: [id number] Expiration date: 06/30/22 - Control Is test valid?: Yes - Results Drug screen NEGATIVE: No Urine drug screen results: THC-Marijuana, DANNIE-Cocaine, FEN-Fentanyl, MOP- Opiates, MTD-Methadone, BZO-Benzodiazepines Inpatient Rehab Admission - Rehab Decision to Admit Inpatient rehab admission?: No
[2020-06-23] MEDS ORDERED: chlordiazePOXIDE HCL 25 MG CAPSULE PO PRN (16:10)
[2020-06-23] MEDS ORDERED: ACETAMINOPHEN 325 MG TABLET (FP) PO PRN ×2 (16:10)
[2020-06-23] MEDS ORDERED: NICOTINE POLACRILEX 2 MG GUM BUC PRN (16:10)
[2020-06-23] MEDS ORDERED: MAGNESIUM CITRATE 300 ML BOTTLE PO PRN (16:10)
[2020-06-23] MEDS ORDERED: BISMUTH SUBSALICYLATE 524 MG/30 ML UD PO PRN (16:10)
[2020-06-23] MEDS ORDERED: ONDANSETRON *ODT* 4 MG TABLET SL PRN (16:10)
[2020-06-23] MEDS ORDERED: IBUPROFEN 400 MG TABLET (FP) PO PRN (16:10)
[2020-06-23] MEDS ORDERED: METHOCARBAMOL 500 MG TABLET PO PRN (16:10)
[2020-06-23] MEDS ORDERED: MAGNESIUM HYDROX 2400MG/30ML ORAL SUSPENSION 30 ML CUP PO PRN (16:10)
[2020-06-23] MEDS ORDERED: MENTHOL/PHENOL 1 EACH UD MM PRN (16:10)
[2020-06-23] MEDS ORDERED: MAG HYDROX/AL HYDROX/SIMETH 30 ML UNIT-DOSE CUP PO PRN (16:10)
[2020-06-23 16:38] VITALS: BMI 18.9
[2020-06-23] MEDS ORDERED: TUBERCULIN PPD 5 TU/0.1ML VIAL ID ONE (17:38)
[2020-06-23] MEDS: hydrOXYzine PAMOATE 25 MG CAPSULE (FP) PO SCH ×2 (17:59→22:56)
[2020-06-23] MEDS: chlordiazePOXIDE HCL 25 MG CAPSULE PO SCH ×2 (17:59→22:55)
[2020-06-23] MEDS: AMOX TR/POT CLAV 875MG/125MG TABLETS (FP) PO SCH (17:59)
[2020-06-23] MEDS: NICOTINE 14 MG/24 HOURS TOPICAL PATCH TD SCH (18:12)
[2020-06-23] MEDS: MELATONIN 5 MG TABLETS PO SCH (22:55)
[2020-06-23] MEDS: BACITRACIN 0.9 GM PACKET TP SCH (22:55)
[2020-06-23] MEDS: THIAMINE HCL 100 MG TABLET (FP) PO SCH (22:56)
[2020-06-24] MEDS: hydrOXYzine PAMOATE 25 MG CAPSULE (FP) PO SCH ×5 (06:29→22:44)
[2020-06-24] MEDS: chlordiazePOXIDE HCL 25 MG CAPSULE PO SCH ×4 (06:31→22:44)
[2020-06-24] MEDS: AMOX TR/POT CLAV 875MG/125MG TABLETS (FP) PO SCH ×2 (07:00→17:57)
--- NOTE | 2020-06-24 08:45 | PN ---
S CIWA - CIWA Score Nausea/Vomitin-No Nausea/No Vomiting Muscle Tremors: 4-Moderate,w/Arms Extend Anxiety: 4-Mod. Anxious/Guarded Agitation: 4-Moderately Restless Paroxysmal Sweats: 1-Minimal Palms Moist Orientation: 0-Oriented Tacttile Disturbances: 0-None Auditory Disturbances: 0-None Visual Disturbances: 0-None Headache: 0-None Present CIWA-Ar Total Score: 13 BHS Progress Note (SOAP) Subjective: Pt is a 54 y/o male admitted to detox for alcohol withdrawal sx. Pt is on Methadone maintenance with 40 mg po daily. c/o Body/muscle ache tremors fatigue Objective: 06/24/20 08:45 Vital Signs - 24 hr 06/23/20 06/23/20 06/23/20 15:31 16:27 19:05 Temperature 98.2 F 98.0 F Pulse Rate 55 L 68 Respiratory 17 18 Rate Blood Pressure 110/66 98/70 O2 Sat by Pulse 98 98 Oximetry (%) 06/23/20 06/24/20 20:52 05:41 Temperature 95 F L 98.4 F Pulse Rate 65 52 L Respiratory 18 18 Rate Blood Pressure 102/61 107/56 L O2 Sat by Pulse 95 94 L Oximetry (%) labs results pending Assessment: 06/24/20 11:03 withdrawal sx Plan: cont detox increase po fluids maintain safety
[2020-06-24] MEDS ORDERED: METHADONE HCL 40 MG DISPERSABLE TABLET PO ONE (08:46)
--- NOTE | 2020-06-24 09:16 | EKG ---
Test Reason : Blood Pressure : / mmHG Vent. Rate : 052 BPM Atrial Rate : 052 BPM P-R Int : 112 ms QRS Dur : 086 ms QT Int : 432 ms P-R-T Axes : 062 078 064 degrees QTc Int : 401 ms SINUS BRADYCARDIA OTHERWISE NORMAL ECG WHEN COMPARED WITH ECG OF 13-OCT-2018 15:30, T WAVE INVERSION NO LONGER EVIDENT IN ANTERIOR LEADS Confirmed by MD STEPHANI, LYNNE ([id number]) on 06/24/2020 9:16:35 AM Referred By: Confirmed By:LYNNE STYLES MD
--- NOTE | 2020-06-24 09:54 | CONSULT ---
[facility] Psychiatric Consult - Data Date of interview: 06/24/20 Admission source: Self-referred Identifying data: Mr Chaudhary is a 54 years old single male, unemployed receiving food stamps, homeless seeking detox treatment for alcohol, opioid, cocaine, benzodiazepine and cannabis Substance Abuse History: Reports history of alcohol, heroin, crack cocaine, xanax and marijuana use. Refer to addiction counselor's summary for further information Medical History: Significant for history of surgery for left inguinal hernia repair. Patient is on methadone 40 mg.day from [facility]. Smokes 10 cigarettes daily Psychiatric History: Patient is known for multiple previous admissions to this facility. He reports that his only psychiatric treatment occured in 2o13 when he saw a psychiatrist at [facility] for depression and Anxiety. Reports attending that clinic for 8-9 months and he was prescribed Klonopin. Claims that he stopped going because that [facility] was closed due to [place] edicaid fraud. At present, denies experiencing depressive and anxiety symptoms, S/H ideations. However, reports sleeping porly Physical/Sexual Abuse/Trauma History: Denies history of verbal, physical or sexual abuse as well as DV relationship. Additional Comment: Reports history of 4-5 previous arrests including 4 felony convictions. Denies being on parole/probation at present Mental Status Exam - Mental Status Exam Alert and Oriented to: Time, Place, Person Cognitive Function: Fair Patient Appearance: Disheveled Mood: Hopeful, Euthymic Patient Behavior: Cooperative Speech Pattern: Clear Voice Loudness: Normal Thought Process: Intact, Goal Oriented Thought Disorder: Not Present Hallucinations: Denies Suicidal Ideation: Denies Homicidal Ideation: Denies Insight/Judgement: Poor Sleep: Poorly Muscle strength/Tone: Normal Gait/Station: Normal Psychiatric Findings - Problem List ([place] 1, 2,3) (1) Substance-induced sleep disorder Current Visit: No Status: Acute (2) Alcohol dependence, uncomplicated Current Visit: No Status: Acute (3) Cocaine dependence Current Visit: Yes Status: Acute (4) Cannabis dependence, uncomplicated Current Visit: No Status: Acute (5) Sedative, hypnotic or anxiolytic abuse Current Visit: Yes Status: Acute (6) Opioid dependence on agonist therapy Current Visit: Yes Status: Chronic (7) Nicotine dependence Current Visit: No Status: Chronic Qualifiers: Nicotine product type: cigarettes Substance use status: uncomplicated Qualified Code(s): F17.210 - Nicotine dependence, cigarettes, uncomplicated - Initial Treatment Plan Initial Treatment Plan: 1) Start Belsomra 10 mg po HS prn for insomnia. 2) Continue inpatient detoxification
[2020-06-24] MEDS: PRENATAL VITAMINS W/ FOLIC ACID TABLET (FP) PO SCH (10:33)
[2020-06-24] MEDS: NICOTINE 14 MG/24 HOURS TOPICAL PATCH TD SCH (10:33)
[2020-06-24] MEDS: BACITRACIN 0.9 GM PACKET TP SCH ×2 (10:36→22:45)
[2020-06-24 11:20] LABS: HEMATOCRIT 40.9 % (35.4-49); HEMOGLOBIN 13.6 GM/dL (11.7-16.9); MCH 33.3 pg (25.7-33.7); MCHC 33.3 g/dl (32.0-35.9); MEAN CELL VOLUME 100.1 fl (80-96); MEAN PLT VOLUME 8.4 fl (7.5-11.1); PLATELET COUNT 281 K/MM3 (134-434); RBC 4.08 M/mm3 (4.00-5.60); RDW 13.8 % (11.9-15.9); WHITE BLOOD COUNT 8.9 K/mm3 (4.0-10.0)
[2020-06-24 11:24] LABS: ALBUMIN 3.1 g/dl (3.4-5.0); BILIRUBIN,TOTAL 0.5 mg/dL (0.2-1); BLOOD UREA NITROGEN 20.7 mg/dL (7-18); CALCIUM 8.8 mg/dL (8.5-10.1); CREATININE 0.8 mg/dL (0.55-1.3); POTASSIUM 3.9 mmol/L (3.5-5.1); TOT PROT 6.3 g/dl (6.4-8.2)
[2020-06-24] MEDS ORDERED: SUVOREXANT 10 MG TABLET PO PRN (22:00)
[2020-06-24] MEDS: THIAMINE HCL 100 MG TABLET (FP) PO SCH (22:44)
[2020-06-24] MEDS: MELATONIN 5 MG TABLETS PO SCH (22:44)
[2020-06-25] MEDS: METHADONE HCL 40 MG DISPERSABLE TABLET PO SCH (07:10)
[2020-06-25] MEDS: hydrOXYzine PAMOATE 25 MG CAPSULE (FP) PO SCH ×5 (07:11→22:20)
[2020-06-25] MEDS: chlordiazePOXIDE HCL 25 MG CAPSULE PO SCH ×4 (07:11→22:21)
[2020-06-25] MEDS: AMOX TR/POT CLAV 875MG/125MG TABLETS (FP) PO SCH ×2 (07:11→18:47)
[2020-06-25] MEDS: BACITRACIN 0.9 GM PACKET TP SCH ×2 (10:49→22:21)
[2020-06-25] MEDS: NICOTINE 14 MG/24 HOURS TOPICAL PATCH TD SCH (10:49)
[2020-06-25] MEDS: PRENATAL VITAMINS W/ FOLIC ACID TABLET (FP) PO SCH (10:49)
--- NOTE | 2020-06-25 13:30 | PN ---
S CIWA - CIWA Score Nausea/Vomitin-No Nausea/No Vomiting Muscle Tremors: 3 Anxiety: 4-Mod. Anxious/Guarded Agitation: 4-Moderately Restless Paroxysmal Sweats: 1-Minimal Palms Moist Orientation: 0-Oriented Tacttile Disturbances: 0-None Auditory Disturbances: 0-None Visual Disturbances: 0-None Headache: 0-None Present CIWA-Ar Total Score: 12 BHS Progress Note (SOAP) Subjective: c/o Anxiety Irritability /Agitated Tremors Pain to Right Axilla area and left LE wound Objective: 06/25/20 13:26 Vital Signs - 24 hr 06/24/20 06/24/20 06/25/20 17:27 20:42 06:56 Temperature 97.8 F 97.3 F L 97.3 F L Pulse Rate 65 65 49 L Respiratory 16 16 16 Rate Blood Pressure 102/61 107/67 106/62 O2 Sat by Pulse 98 98 Oximetry (%) 06/25/20 09:34 Temperature 97.1 F L Pulse Rate 65 Respiratory 16 Rate Blood Pressure 96/54 L O2 Sat by Pulse 98 Oximetry (%) Laboratory Tests 06/24/20 06/24/20 06/24/20 08:00 08:00 08:00 WBC 8.9 RBC 4.08 Hgb 13.6 Hct 40.9 MCV 100.1 H MCH 33.3 MCHC 33.3 RDW 13.8 Plt Count 281 D MPV 8.4 Sodium 143 Potassium 3.9 Chloride 108 H Carbon Dioxide 30 Anion Gap 6 L BUN 20.7 H Creatinine 0.8 Est GFR (CKD-EPI)AfAm 117.38 Est GFR (CKD-EPI)NonAf 101.27 Random Glucose 93 Calcium 8.8 Total Bilirubin 0.5 AST 24 ALT 14 Alkaline Phosphatase 82 Total Protein 6.3 L Albumin 3.1 L Syphilis Serology Non-reactive Covid-19 result pending Alert o x 3 nad oob ambulating with steady gait Assessment: 06/25/20 13:34 withdrawal sx Plan: [facility]ail detox increase po fluids maintain safety
[2020-06-25] MEDS: THIAMINE HCL 100 MG TABLET (FP) PO SCH (22:21)
[2020-06-25] MEDS: MELATONIN 5 MG TABLETS PO SCH (22:21)
[2020-06-26] MEDS ORDERED: chlordiazePOXIDE HCL 10 MG CAPSULE PO PRN
[2020-06-26] MEDS: chlordiazePOXIDE HCL 10 MG CAPSULE PO SCH ×4 (06:18→22:04)
[2020-06-26] MEDS: hydrOXYzine PAMOATE 25 MG CAPSULE (FP) PO SCH ×5 (06:18→22:04)
[2020-06-26] MEDS: METHADONE HCL 40 MG DISPERSABLE TABLET PO SCH (06:18)
[2020-06-26] MEDS: AMOX TR/POT CLAV 875MG/125MG TABLETS (FP) PO SCH (07:48)
[2020-06-26] MEDS: NICOTINE 14 MG/24 HOURS TOPICAL PATCH TD SCH (10:29)
[2020-06-26] MEDS: BACITRACIN 0.9 GM PACKET TP SCH ×2 (10:29→22:03)
[2020-06-26] MEDS: PRENATAL VITAMINS W/ FOLIC ACID TABLET (FP) PO SCH (10:29)
--- NOTE | 2020-06-26 10:46 | PN ---
S CIWA - CIWA Score Nausea/Vomitin-No Nausea/No Vomiting Muscle Tremors: 2 Anxiety: 4-Mod. Anxious/Guarded Agitation: 3 Paroxysmal Sweats: No Perspiration Orientation: 0-Oriented Tacttile Disturbances: 0-None Auditory Disturbances: 0-None Visual Disturbances: 0-None Headache: 0-None Present CIWA-Ar Total Score: 9 S Progress Note (SOAP) Subjective: c/o feeling better today. Ambulating on hallways this morning with steady gait. Wants to speak to his counselor for aftercare arrangements after detox. slight anxiety. Objective: 06/26/20 10:43 Vital Signs - 24 hr 06/25/20 06/25/20 06/25/20 13:26 18:16 20:48 Temperature 97.8 F 98.4 F 96.9 F L Pulse Rate 62 66 73 Respiratory 16 18 16 Rate Blood Pressure 103/68 104/65 100/68 O2 Sat by Pulse 96 96 96 Oximetry (%) 06/26/20 06/26/20 06:00 08:57 Temperature 98.4 F 97.1 F L Pulse Rate 67 76 Respiratory 18 18 Rate Blood Pressure 94/60 101/65 O2 Sat by Pulse 96 97 Oximetry (%) Laboratory Tests 06/23/20 06/24/20 06/24/20 16:50 08:00 08:00 WBC 8.9 RBC 4.08 Hgb 13.6 Hct 40.9 MCV 100.1 H MCH 33.3 MCHC 33.3 RDW 13.8 Plt Count 281 D MPV 8.4 Sodium Potassium Chloride Carbon Dioxide Anion Gap BUN Creatinine Est GFR (CKD-EPI)AfAm Est GFR (CKD-EPI)NonAf Random Glucose Calcium Total Bilirubin AST ALT Alkaline Phosphatase Total Protein Albumin Syphilis Serology Non-reactive COVID-19 (AVERY) Not detected 06/24/20 08:00 WBC RBC Hgb Hct MCV MCH MCHC RDW Plt Count MPV Sodium 143 Potassium 3.9 Chloride 108 H Carbon Dioxide 30 Anion Gap 6 L BUN 20.7 H Creatinine 0.8 Est GFR (CKD-EPI)AfAm 117.38 Est GFR (CKD-EPI)NonAf 101.27 Random Glucose 93 Calcium 8.8 Total Bilirubin 0.5 AST 24 ALT 14 Alkaline Phosphatase 82 Total Protein 6.3 L Albumin 3.1 L Syphilis Serology COVID-19 (AVERY) Assessment: 06/26/20 10:44 withdrawal sx Plan: continue detox increase po fluids maintain safety cont present ulcer/abscess care Encouraged to see counselor for aftercare plans.
[2020-06-26] MEDS: MELATONIN 5 MG TABLETS PO SCH (22:04)
[2020-06-26] MEDS: THIAMINE HCL 100 MG TABLET (FP) PO SCH (22:04)
[2020-06-27 02:34] LABS: PH,URINE 8.5 (5.0-8.0); URINE APPEARANCE CLEAR; URINE BILIRUBIN NEGATIVE (NEGATIVE); URINE COLOR YELLOW; URINE GLUCOSE (UA) NEGATIVE (NEGATIVE); URINE KETONE NEGATIVE (NEGATIVE); URINE LEUK ESTERASE NEGATIVE (NEGATIVE); URINE NITRITE NEGATIVE (NEGATIVE); URINE PROTEIN NEGATIVE (NEGATIVE); URINE UROBILINOGEN 0.2 mg/dL (0.2-1.0)
[2020-06-27] MEDS: hydrOXYzine PAMOATE 25 MG CAPSULE (FP) PO SCH ×5 (07:14→21:46)
[2020-06-27] MEDS: METHADONE HCL 40 MG DISPERSABLE TABLET PO SCH (07:14)
[2020-06-27] MEDS: chlordiazePOXIDE HCL 10 MG CAPSULE PO SCH ×2 (07:14→18:46)
[2020-06-27] MEDS: PRENATAL VITAMINS W/ FOLIC ACID TABLET (FP) PO SCH (10:15)
[2020-06-27] MEDS: NICOTINE 14 MG/24 HOURS TOPICAL PATCH TD SCH (10:15)
[2020-06-27] MEDS: BACITRACIN 0.9 GM PACKET TP SCH ×2 (10:16→21:47)
--- NOTE | 2020-06-27 14:33 | PN ---
S CIWA - CIWA Score Nausea/Vomitin-No Nausea/No Vomiting Muscle Tremors: 2 Anxiety: 3 Agitation: 2 Paroxysmal Sweats: 1-Minimal Palms Moist Orientation: 0-Oriented Tacttile Disturbances: 0-None Auditory Disturbances: 0-None Visual Disturbances: 1-Very Mild Sensitivity Headache: 0-None Present CIWA-Ar Total Score: 9 BHS Progress Note (SOAP) Subjective: Anxious, Restless, Tremors. Objective: Patient A & O X 2 (Uncertain About Current Day/Date). Patient Observed Ambulating on Detox Unit Unassisted. In No Acute Distress. 06/27/20 14:31 Vital Signs Temperature 98.2 F 06/27/20 14:10 Pulse Rate 65 06/27/20 14:10 Respiratory Rate 18 06/27/20 14:10 Blood Pressure 98/65 06/27/20 14:10 O2 Sat by Pulse Oximetry (%) 98 06/27/20 14:10 Laboratory Tests 06/23/20 06/24/20 06/24/20 16:50 08:00 08:00 WBC 8.9 RBC 4.08 Hgb 13.6 Hct 40.9 MCV 100.1 H MCH 33.3 MCHC 33.3 RDW 13.8 Plt Count 281 D MPV 8.4 Sodium Potassium Chloride Carbon Dioxide Anion Gap BUN Creatinine Est GFR (CKD-EPI)AfAm Est GFR (CKD-EPI)NonAf Random Glucose Calcium Total Bilirubin AST ALT Alkaline Phosphatase Total Protein Albumin Urine Color Urine Appearance Urine pH Ur Specific [place] Urine Protein Urine Glucose (UA) Urine Ketones Urine Blood Urine Nitrite Urine Bilirubin Urine Urobilinogen Ur Leukocyte Esterase Syphilis Serology Non-reactive COVID-19 ([facility]) Not detected 06/24/20 06/26/20 08:00 18:00 WBC RBC Hgb Hct MCV MCH MCHC RDW Plt Count MPV Sodium 143 Potassium 3.9 Chloride 108 H Carbon Dioxide 30 Anion Gap 6 L BUN 20.7 H Creatinine 0.8 Est GFR (CKD-EPI)AfAm 117.38 Est GFR (CKD-EPI)NonAf 101.27 Random Glucose 93 Calcium 8.8 Total Bilirubin 0.5 AST 24 ALT 14 Alkaline Phosphatase 82 Total Protein 6.3 L Albumin 3.1 L Urine Color Yellow Urine Appearance Clear Urine pH 8.5 H D Ur Specific [place] 1.017 Urine Protein Negative Urine Glucose (UA) Negative Urine Ketones Negative Urine Blood Negative Urine Nitrite Negative Urine Bilirubin Negative Urine Urobilinogen 0.2 Ur Leukocyte Esterase Negative Syphilis Serology COVID-19 ([facility]) Lab Results noted. Assessment: 06/27/20 14:32 WITHDRAWAL SYMPTOMS. Plan: Continue Detox. Increase daily Oral Water intake. Patient to be sent via ambulance to [facility] for evaluation of growth in Right Axilla area. See following [facility] BHS Progress note.
--- NOTE | 2020-06-27 14:37 | PN ---
[facility] Progress Note Note: Patient reports growth in right axilla X approx. 2 days. 3 elevated growths noted in Right axilla. 1 of the growth is erythematous and approx. 1 inch in diameter. Other 2 growths approx. 0.5 inch in diameter. No discharge noted at affected sites. Patient reports mild discomfort at affected site with movement of Right arm and shoulder. Patient denies history of trauma to affected area, but does note that he thinks that he changed deodorant recently. Patient completed course of Augmentin yesterday for growth on Left Lower extremity. VS: BP: 98/65; P: 65; T: 98.2; O2: 98%; RR: [address] Candelario at [facility]. Patient taken via ambulance to [facility] for further evaluation.
--- NOTE | 2020-06-27 17:44 | PN ---
[facility] Progress Note Note: patient returned to [facility] form er at [facility] after incision and drainage of abscess of right axilla, recommended clindamycin 450 mgs po tid ,ordered continue detox librium regimen
[2020-06-27] MEDS: MELATONIN 5 MG TABLETS PO SCH (21:46)
[2020-06-27] MEDS: CLINDAMYCIN HCL 150 MG CAPSULE (FP) PO SCH (21:46)
[2020-06-27] MEDS: THIAMINE HCL 100 MG TABLET (FP) PO SCH (21:46)
[2020-06-28] MEDS ORDERED: chlordiazePOXIDE HCL 10 MG CAPSULE PO ONE (05:00)
[2020-06-28] MEDS: METHADONE HCL 40 MG DISPERSABLE TABLET PO SCH (06:26)
[2020-06-28] MEDS: hydrOXYzine PAMOATE 25 MG CAPSULE (FP) PO SCH (08:59)
[2020-06-28] MEDS: CLINDAMYCIN HCL 150 MG CAPSULE (FP) PO SCH (08:59)
[2020-06-28 09:11] VITALS: BP 133/67; PULSE 80; TEMP 97.1
--- NOTE | 2020-06-28 14:08 | DS ---
[facility] Detox Discharge Summary Admission Date: 06/23/20 Discharge Date: 06/28/20 - History Present History: Alcohol Dependence, Opioid Dependence, Sedative Dependence Additional Comments: received call from Dr Ibarra that mr fraser has completed the librium detox regiment and is tolerated well alert oriented x 3 transferred to ER on 06/27/20 for right axilla abscess I & D return on 06/27/20 with clindamycine 450mg po tid clindamycine sent to preferred pharmacy mr panchal was seen by psychiatrist while in detox and belsomra initiated for insomnia mr panchal prefers to return home for clothing than to [facility] for alcohol and benzo recovery cardiac s1s2 regular rate 80/minutes rhythm Vital Signs Temperature 97.1 F L 06/28/20 08:40 Pulse Rate 80 06/28/20 08:40 Respiratory Rate 18 06/28/20 08:40 Blood Pressure 133/67 06/28/20 08:40 O2 Sat by Pulse Oximetry (%) 99 06/28/20 05:28 respiratory clear lung sounds bilaterally on auscultation abdomen soft flat no rebound tenderness right axilla abscess post I&D dressing clearn and dry and intact mr panchal may return to methadone program for dressing or follow up with [facility] for antibiotic treatment and dressing change Pertinent Past History: time for discharge 35 minutes - Physical Exam Results Vital Signs: Vital Signs Temperature 97.1 F L 06/28/20 08:40 Pulse Rate 80 06/28/20 08:40 Respiratory Rate 18 06/28/20 08:40 Blood Pressure 133/67 06/28/20 08:40 O2 Sat by Pulse Oximetry (%) 99 06/28/20 05:28 Pertinent Admission Physical Exam Findings: alcohol and benzo withdrawal Laboratory Tests 06/23/20 06/24/20 06/24/20 16:50 08:00 08:00 WBC 8.9 RBC 4.08 Hgb 13.6 Hct 40.9 MCV 100.1 H MCH 33.3 MCHC 33.3 RDW 13.8 Plt Count 281 D MPV 8.4 Sodium Potassium Chloride Carbon Dioxide Anion Gap BUN Creatinine Est GFR (CKD-EPI)AfAm Est GFR (CKD-EPI)NonAf Random Glucose Calcium Total Bilirubin AST ALT Alkaline Phosphatase Total Protein Albumin Urine Color Urine Appearance Urine pH Ur Specific [place] Urine Protein Urine Glucose (UA) Urine Ketones Urine Blood Urine Nitrite Urine Bilirubin Urine Urobilinogen Ur Leukocyte Esterase Syphilis Serology Non-reactive COVID-19 ([facility]) Not detected 06/24/20 06/26/20 08:00 18:00 WBC RBC Hgb Hct MCV MCH MCHC RDW Plt Count MPV Sodium 143 Potassium 3.9 Chloride 108 H Carbon Dioxide 30 Anion Gap 6 L BUN 20.7 H Creatinine 0.8 Est GFR (CKD-EPI)AfAm 117.38 Est GFR (CKD-EPI)NonAf 101.27 Random Glucose 93 Calcium 8.8 Total Bilirubin 0.5 AST 24 ALT 14 Alkaline Phosphatase 82 Total Protein 6.3 L Albumin 3.1 L Urine Color Yellow Urine Appearance Clear Urine pH 8.5 H D Ur Specific [place] 1.017 Urine Protein Negative Urine Glucose (UA) Negative Urine Ketones Negative Urine Blood Negative Urine Nitrite Negative Urine Bilirubin Negative Urine Urobilinogen 0.2 Ur Leukocyte Esterase Negative Syphilis Serology COVID-19 ([facility]) lab noted - Treatment Hospital Course: Detox Protocol Followed, Detoxed Safely, Responded well, Discharged Condition Good, Rehab Referral Accepted Patient has Accepted a Rehab Referral to: [facility] - Medication Discharge Medications: Ambulatory Orders Clindamycin [Cleocin -] 450 mg PO TID 7 Days #21 capsule 06/27/20 Clindamycin [Cleocin -] 450 mg PO TID 10 Days #30 capsule 06/28/20 - Diagnosis (1) Alcohol dependence, uncomplicated Status: Acute (2) Sedative, hypnotic or anxiolytic abuse Status: Acute (3) Substance induced mood disorder Status: Suspected (4) Methadone maintenance therapy patient Status: Chronic (5) Nicotine dependence Status: Acute Qualifiers: Nicotine product type: cigarettes Substance use status: in withdrawal Qualified Code(s): F17.213 - Nicotine dependence, cigarettes, with withdrawal (6) Weight decreased Status: Chronic - AMA Did Patient Leave Against Medical Advice: No CIWA Score - CIWA Score Nausea/Vomitin-No Nausea/No Vomiting Muscle Tremors: 1-None Visible, but [place] Anxiety: 2 Agitation: 1-Slight > Activity Paroxysmal Sweats: No Perspiration Orientation: 0-Oriented Tacttile Disturbances: 0-None Auditory Disturbances: 0-None Visual Disturbances: 0-None Headache: 0-None Present CIWA-Ar Total Score: 4 COWS (PN) - Opiate Withdrawal Resting Pulse: 0= AR 80 or Below Sweatin= No chills or Flushing Restless Observation: 0= Sits Still Pupil Size: 0= Normal to Room Light Bone or Joint Aches: 1= Mild Discomfort Runny Nose/ Eye Tearin= None GI Upset > 30mins: 1= Stomach Cramp Tremor Observation of Outstretched Hands: 1= Tremor [place], Not Seen Yawning Observation: 0= None Anxiety or Irritability: 1=Feels Anxious/Irritable Goose Flesh Skin: 0=Smooth Skin COWS Score: 4
== END 2020-06-28 10:00 | disposition home or self-care (01) | DRG 773 ==
LOC: YASAS 14:22 → Y5N DETOX 16:34
PROVIDERS: ADMIT Allergy & Immunology; ATTEND Allergy & Immunology
PROC: HZ2ZZZZ Detoxification Services for Substance Abuse Treatment (ICD-10-PCS; principal; 2020-06-23)
DX: F10.230 Alcohol dependence with withdrawal, uncomplicated (principal); F11.23 Opioid dependence with withdrawal; F13.230 Sedative, hypnotic or anxiolytic dependence with withdrawal, uncomplicated; F14.20 Cocaine dependence, uncomplicated; F12.20 Cannabis dependence, uncomplicated; F17.213 Nicotine dependence, cigarettes, with withdrawal; F19.24 Other psychoactive substance dependence with psychoactive substance-induced mood disorder; R63.4 Abnormal weight loss; L02.411 Cutaneous abscess of right axilla
CPT/HCPCS: 36415; 80053; 81003; 85027; 86780; 93005; 93010; U0003

== ENCOUNTER 2020-06-27 15:51 | Emergency (ER) | payer OTHER ==
[2020-06-27 15:57] VITALS: BMI 46.8
--- NOTE | 2020-06-27 16:12 | PDOC ---
History of Present Illness - General Chief Complaint: Abscess Boil Stated Complaint: ABCESS Time Seen by Provider: 06/27/20 15:55 - History of Present Illness Initial Comments: Bo Chaudhary is a 54 y/o male with PMH significant for cocaine and heroin use disorder, presenting today with multiple abscesses in the right axilla. Reports that he noticed these a couple of days ago and that the pain has been worsening. No fever/chills. No bleeding or purulent drainage. Pain over the largest abscess. No chest pain/shortness of breath/abdominal pain/back pain. Past History - Medical History Allergies/Adverse Reactions: Allergies Allergy/AdvReac Type Severity Reaction Status Date / Time No Known Allergies Allergy Verified 06/27/20 15:55 Home Medications: Ambulatory Orders Clindamycin [Cleocin -] 450 mg PO TID 7 Days #21 capsule 06/27/20 Anemia: No Asthma: No Cancer: No Cardiac Disorders: No CVA: No COPD: No CHF: No Dementia: No Diabetes: No GI Disorders: No Disorders: No HTN: No Hypercholesterolemia: No Kidney Stones: No Liver Disease: No Seizures: No Thyroid Disease: No - Surgical History Abdominal Surgery: Yes (left inguinal hernia repair age 7) Appendectomy: No Cardiac Surgery: No Cholecystectomy: No Lung Surgery: No Neurologic Surgery: No Orthopedic Surgery: No - Reproductive History Testicular Surgery: No - Psycho-Social/Smoking History Smoking History: Never smoked Have you smoked in the past 12 months: Yes Number of Cigarettes Smoked Daily: 10 Cigars Per Day: 0 'Breaking Loose' booklet given: 06/23/20 Review of Systems - Review of Systems Comments:: GENERAL/CONSTITUTIONAL: No fever or chills. No weakness._ HEAD, EYES, EARS, NOSE AND THROAT: No change in vision. No change in hearing. No sore throat._ CARDIOVASCULAR: No chest pain or shortness of breath_ RESPIRATORY: Denies cough, hemoptysis_ GASTROINTESTINAL: No nausea, vomiting, diarrhea or constipation._ GENITOURINARY: No dysuria, frequency, or change in urination._ MUSCULOSKELETAL: Reports pain and abscesses in right axilla. SKIN: No rash_ NEUROLOGIC: No headache, vertigo, loss of consciousness, or change in strength/sensation._ ENDOCRINE: No increased thirst. No abnormal weight change_ HEMATOLOGIC/LYMPHATIC: No anemia, easy bleeding, or history of blood clots._ ALLERGIC/IMMUNOLOGIC: No hives or skin allergy._ *Physical Exam - Vital Signs Last Vital Signs Temp Pulse Resp BP Pulse Ox 99.3 F 64 15 104/60 98 06/27/20 15:55 06/27/20 15:55 06/27/20 15:55 06/27/20 15:55 06/27/20 15:55 - Physical Exam GENERAL: Awake, alert, and oriented to person/place/time, in no acute distress_ HEAD: No signs of trauma, normocephalic, atraumatic _ EYES: PERRLA, EOMI, sclera anicteric, conjunctiva clear_ ENT: Hearing grossly normal, nares patent, oropharynx clear without exudates. No uvular deviation. Moist mucosa_ NECK: Normal ROM, supple, no lymphadenopathy, JVD, or masses_ LUNGS: No distress, speaks in full sentences, clear to auscultation bilaterally _ HEART: Regular rate and rhythm, normal S1 and S2, no murmurs appreciated, peripheral pulses normal and equal bilaterally._ ABDOMEN: Soft, nontender, normoactive bowel sounds. No guarding, no rebound. No masses_ EXTREMITIES: Normal inspection, Normal range of motion, no edema. No clubbing or cyanosis_ Multiple abscesses in the right axilla the largest measuring 1.5cm x 1.5 cm with mild fluctuance and surrounding erythema. Other small abscesses without fluid collection nor fluctuance not amenable to drainage. NEUROLOGICAL: Cranial nerves II through XII grossly intact. Normal speech, normal gait, no focal sensorimotor deficits _ SKIN: Warm, Dry, normal turgor, no rashes or lesions noted_ Procedures - Incision and Drainage I&D Site: Right: Axilla Betadine cleansed: Yes Anesthesia: 1% Lidocaine w/ Epi Volume(ml): 3 Blade Size: 11 Attempts: 1 Iodinated Packin/ in Plain Packing: No Complications: none Dressing: Yes Progress: Verbal consent were obtained. The indication for the procedure was clinical suspicion for an abscess. The region was anesthetized with 3 cc 1% lidocaine with epinephrine. The most fluctuant portion of the abscess was incised with an 11 blade scalpel. The abscess cavity of explored and evacuated, all loculations were broken up with a hemostat. The cavity was then packed with packing material and dressed with a clean gauze dressing. Patient tolerated procedure well. Medical Decision Making - Medical Decision Making 54M hx of cocaine/heroin use disorder, prior abscess with incision/drainage, presenting today with multiple abscesses over right axilla. Minimal erythema with fluctuance. No fever/chills/systemic infectious symptoms. One abscess amenable to drainage. -abscess I&D -clindamycin 450mg 06/27/20 16:52 Abscess drained. See procedure note. 06/27/20 17:14 Pt reassessed. Plan to d/c to [facility] for detox. Clindamycin 450 mg TID for 7 days. Instructions for drainage care given. All questions answered. Return precautions given. Pt verbalized understanding and agreement with plan. Discharge - Discharge Information Problems reviewed: Yes Clinical Impression/Diagnosis: Abscess of axilla, right Condition: Stable Disposition: HOME - Admission No - Additional Discharge Information Prescriptions: Clindamycin [Cleocin -] 450 mg PO TID 7 Days #21 capsule - Follow up/Referral Referrals: [facility] [place] [facility] [place] [Provider Group] - Patient Discharge Instructions Patient Printed Discharge Instructions: DI for Incision and Drainage of a Skin Abscess, DI for Skin Abscess Additional Instructions: Please take Clindamycin (antibiotic) 450 mg TID for 7 days. Please proceed to [facility] to continue with detox. Please make a follow up appt with your primary care doctor as soon as possible. If you experience any new, worsening, or concerning symptoms, including return of abscess, pain over the incision site, nausea, vomiting, fever, chills, bleeding or purulent discharge from the abscess, or any other concerns, please return to the emergency department. - Post Discharge Activity
[2020-06-27] MEDS ORDERED: LIDOCAINE 1%/EPI 1:100000 (50 ML MULTI DOSE VIAL) INF ONE (16:18)
[2020-06-27] MEDS ORDERED: LIDOCAINE 1%/EPI 1:100000 (20 ML MULTI DOSE VIAL) ONE (16:27)
--- NOTE | 2020-06-27 16:44 | PDOC ---
Documentation entered by Marc Glass SCRIBE, acting as scribe for Liu Candelario MD. Liu Candelario MD: This documentation has been prepared by the Maria Luisa muir Aaron, SCRIBE, under my direction and personally reviewed by me in its entirety. I confirm that the documentation accurately reflects all work, treatment, procedures, and medical decision making performed by me. Attending Attestation - Resident Resident Name: Marquise Mackenzie - ED Attending Attestation I have performed the following: I have examined & evaluated the patient, The case was reviewed & discussed with the resident, I agree w/resident's findings & plan, Exceptions are as noted - HPI HPI: 06/27/20 16:29 The patient is a 54 year old male with a significant PMH of EtOH dependence and drug use who presents to the emergency department [facility] from [facility] for right UE abscesses. Patient has five abscesses on interior RUE, one of which is 2 x 2 and amenable to drainage. The patient denies any other symptoms. Allergies: NKDA Social Hx: EtOH dependence PCP: Sukh Yang ([facility]) - Physicial Exam PE: 06/27/20 16:32 Vitals: Triage Vital signs reviewed General Appearance: no acute distress, well nourished well developed, Neck: Supple;No Nuchal rigidity Chest Wall: Nontender Cardiac: Regular rate and rhythm, no murmurs, no rubs, no gallops, Lungs: Clear to auscultation bilateral, good air movement bilaterally, Abdomen: Soft, nondistended, normal bowel sounds, nontender to palpation Extremities: Full range of motion to all extremities, no cyanosis, clubbing, or edema Skin: + 5x Right UE abscess. Only one is 2x2 and amenable to drainage. Neuro: AOX3; Cranial Nerves 2-12 grossly intact, Psych: normal mood, normal affect - Medical Decision Making 06/27/20 17:19 2 cm abscess to right axilla incised and drained in the ED packing applied patient started on Clinda will discharge back to [place] [facility] Several other small nonfluctuant pimples noted in axilla not amenable to drainage. Findings, need for follow-up and strict return instructions discussed with patient. Discharge - Discharge Information Problems reviewed: Yes Clinical Impression/Diagnosis: Abscess of axilla, right Condition: Stable Disposition: HOME - Additional Discharge Information Prescriptions: Clindamycin [Cleocin -] 450 mg PO TID 7 Days #21 capsule - Follow up/Referral Referrals: [facility] – [place] [place] [facility] [place] [Provider Group] - Patient Discharge Instructions Patient Printed Discharge Instructions: DI for Incision and Drainage of a Skin Abscess, DI for Skin Abscess Additional Instructions: Please take Clindamycin (antibiotic) 450 mg TID for 7 days. Please proceed to [facility] to continue with detox. Please make a follow up appt with your primary care doctor as soon as possible. If you experience any new, worsening, or concerning symptoms, including return of abscess, pain over the incision site, nausea, vomiting, fever, chills, bleeding or purulent discharge from the abscess, or any other concerns, please return to the emergency department. - Post Discharge Activity
[2020-06-27] MEDS ORDERED: CLINDAMYCIN HCL 150 MG CAPSULE (FP) PO ONE (16:56)
[2020-06-27] MEDS ORDERED: CLINDAMYCIN HCL 150 MG CAPSULE (FP) ONE (17:06)
[2020-06-27 17:30] VITALS: BP 110/65; PULSE 59; TEMP 97.9
== END 2020-06-27 17:31 | disposition home or self-care (01) ==
LOC: JER 15:51
PROC: 0X940ZZ Drainage of Right Axilla, Open Approach (ICD-10-PCS; principal; 2020-06-27)
DX: L02.411 Cutaneous abscess of right axilla (principal)
CPT/HCPCS: 99283-25

== ENCOUNTER 2020-08-10 11:19 | Inpatient (IN) | payer OTHER ==
--- OUTSIDE RECORDS SUMMARY | 2020-08-10 11:32 | XMS ---
:1965 Author Organization [facility] Support Name Relationship Address Phone UE, UNEMPLOYED Unavailable Unavailable Unavailable UE Unavailable Unavailable Unavailable SONIYA CHOI [address] [phone] [place] [address] SONIYA CHOI [address] [place] [address] Re-disclosure Warning The records that you are about to access may contain information from federally- assisted alcohol or drug abuse programs. If such information is present, then the following federally mandated warning applies: This information has been disclosed to you from records protected by federal confidentiality rules (42 CFR part 2). The federal rules prohibit you from making any further disclosure of this information unless further disclosure is expressly permitted by the written consent of the person to whom it pertains or as otherwise permitted by 42 CFR part 2. A general authorization for the release of medical or other information is NOT sufficient for this purpose. The Federal rules restrict any use of the information to criminally investigate or prosecute any alcohol or drug abuse patient.The records that you are about to access may contain highly sensitive health information, the redisclosure of which is protected by Article 27-F of the [facility] Public Health law. If you continue you may haveaccess to information: Regarding HIV / AIDS; Provided by facilities licensed or operated by the [facility] Office of Mental Health; or Provided by the [facility] Office for People With Developmental Disabilities. If such information is present, then the following [facility] mandated warning applies: This information has been disclosed to you from confidential records which are protected by state law. State law prohibits you from making any further disclosure of this information without the specific written consent of the person to whom it pertains, or as otherwise permitted by law. Any unauthorized further disclosure in violation of state law may result in a fine or long term sentence or both. A general authorization for the release of medical or other information is NOT sufficient authorization for further disclosure. Insurance Providers Payer name Policy type Policy ID Covered Covered democrat's Policy P lety / Coverage democrat ID relationship to [employer] ormation type drake [employer] [id number] SP [id number] T [employer] [id number] SP [id number] T [employer] [id number] SP [id number] METROPLUS Results ID Date Data Source [id number] 06/23/2020 04:50:00 PM EDT [facility] Name Value Range Interpretation Description Data Sup porting Code Source(s) Document(s ) SARS [facility] coronavirus 2 RNA This lab was ordered by [facility] ct Bill Inter and reported by [facility]. Procedure
--- NOTE | 2020-08-10 11:41 | BHS.RME ---
Substance Use & Tx History - Substance Use History Alcohol Substance amount: 1 pint vodka + 2 beers Frequency of use: Daily Substance route: Oral Date of Last Use: 08/10/20 (7am started age 16) Heroin Substance amount: 1-2 bags Frequency of use: Less than 3 times per week Substance route: Inhalation (ex: sniffing or snorting) Date of Last Use: 08/09/20 (on methadone) Cocaine-Crack Substance amount: $20 Frequency of use: Daily Substance route: Smoking Date of Last Use: 08/09/20 (started age 22) Marijuana/Hashish Substance amount: $20 Frequency of use: Less than 3 times per week Substance route: Smoking Date of Last Use: 08/10/20 (started aqge 15) Nicotine Substance amount: 1/2 pack Frequency of use: Daily Substance route: Smoking Date of Last Use: 08/10/20 (started age 16) - Last Treatment Date of last treatment: 06/23-06/27/20 completed detox but relapsed immediately Treatment type: Substance Use Disorder (SAGE) Where was last treatment: Detox Physical/Psych/Mental Status - Behavior General Behavior: Increased activity (restlessness, agitation) Eye Contact: Normal - Cooperativeness Cooperativeness: Cooperative - Thinking Thought Processes: Tight, Logical, Goal Directed - Physical Health Problems Is patient presently having any pain?: No Does patient presently have any injuries (include location): No Does patient currently have a fever: No Is patient : No CIWA Nausea/Vomitin Muscle Tremors: 3 Anxiety: 3 Agitation: 3 Paroxysmal Sweats: 3 Orientation: 1-Uncertain about Date Tacttile Disturbances: 1-Very Mild Itch/Numbness Auditory Disturbances: 1-Very Mild Visual Disturbances: 1-Very Mild Sensitivity Headache: 0-None Present CIWA-Ar Total Score: 19
--- NOTE | 2020-08-10 12:40 | HP ---
CIWA Score Nausea/Vomitin Muscle Tremors: 3 Anxiety: 3 Agitation: 3 Paroxysmal Sweats: 3 Orientation: 1-Uncertain about Date Tacttile Disturbances: 1-Very Mild Itch/Numbness Auditory Disturbances: 1-Very Mild Visual Disturbances: 1-Very Mild Sensitivity Headache: 0-None Present CIWA-Ar Total Score: 19 - Admission Criteria OASAS Guidelines: Admission for Medically Managed Detox: Requires at least one of the followin. CIWA greater than 12 2. Seizures within the past 24 hours 3. Delirium tremens within the past 24 hours 4. Hallucinations within the past 24 hours 5. Acute intervention needed for co occurring medical disorder 6. Acute intervention needed for co occurring psychiatric disorder 7. Severe withdrawal that cannot be handled at a lower level of care (continued vomiting, continued diarrhea, abnormal vital signs) requiring intravenous medication and/or fluids 8. Admitting History and Physical - Smoking History Smoking history: Never smoked Have you smoked in the past 12 months: Yes Aproximately how many cigarettes per day: 10 - Alcohol/Substance Use Hx Alcohol Use: Yes Admission ROS [facility] Chief Complaint: "I want to finish what I started. I need to be clean. I want my life back." Allergies/Adverse Reactions: Allergies Allergy/AdvReac Type Severity Reaction Status Date / Time No Known Allergies Allergy Verified 06/27/20 15:55 History of Present Illness: 54 year old male with history of alcohol dependence with withdrawal, opiate dependence on agonist therapy, cocaine use disorder,cannabis use disorder and nicotine dependence. He was last here from 06/23-06/27/20 completed detox but had an episode of abscess in Right Axillae which was treated, started 1 day rehab and then left on his own accord. He relapsed immediately after leaving rehab. - Substance Use History Alcohol Substance amount: 1 pint vodka + 2 beers Frequency of use: Daily Substance route: Oral Date of Last Use: 08/10/20 (7am started age 16) He endorses the need of having an eye box person daily to stave off withdrawals. Heroin Substance amount: 1-2 bags Frequency of use: Less than 3 times per week Substance route: Inhalation (ex: sniffing or snorting) Date of Last Use: 08/09/20 (on methadone) He overdosed once 2 years ago and now has Narcan, but does not carry it with him. He is on methadone at [facility] Cocaine-Crack Substance amount: $20 Frequency of use: Daily Substance route: Smoking Date of Last Use: 08/09/20 (started age 22) Marijuana/Hashish Substance amount: $20 Frequency of use: Less than 3 times per week Substance route: Smoking Date of Last Use: 08/10/20 (started aqge 15) Nicotine Substance amount: 1/2 pack Frequency of use: Daily Substance route: Smoking Date of Last Use: 08/10/20 (started age 16) - Last Treatment Date of last treatment: 06/23-06/27/20 completed detox but relapsed immediately Treatment type: Substance Use Disorder (SAGE) Where was last treatment: Detox PMH: None Psurg: None 'Psych: None He is homeless and on the streets but has no legal issues pending. LILLIANA=0.037 CIWA=19 urine TOx: Positive for THC, MOP< FEN, DANNIE, MTD, BZO. Denies use of benzo and thinks it is mixed into his heroin he uses occasionally, last used yesterday. He meets criteria for detox as he has poor recovery environment and multiple detox failures, poor insight into his disease. Exam Limitations: No Limitations - Ebola screening Have you traveled outside of the country in the last 21 days: No Have you had contact with anyone from an Ebola affected area: No Have you been sick,other than usual withdrawal symptoms: No Do you have a fever: No - Review of Systems Constitutional: Chills, Diaphoresis, Unintentional Wgt. Loss EENT: reports: No Symptoms Reported Respiratory: reports: No Symptoms reported Cardiac: reports: No Symptoms Reported GI: reports: No Symptoms Reported : reports: No Symptoms Reported Musculoskeletal: reports: No Symptoms Reported Integumentary: reports: No Symptoms Reported Neuro: reports: Headache, Tremors Endocrine: reports: No Symptoms Reported Hematology: reports: No Symptoms Reported Psychiatric: reports: Orientated x3, Agitated, Anxious, Depressed Other Systems: Reviewed and Negative Patient History - Patient Medical History Hx Anemia: No Hx Asthma: No Hx Chronic Obstructive Pulmonary Disease (COPD): No Hx Cancer: No Hx Cardiac Disorders: No Hx Congestive Heart Failure: No Hx Hypertension: No Hx Hypercholesterolemia: No Hx Pacemaker: No HX Cerebrovascular Accident: No Hx Seizures: No Hx Dementia: No Hx Diabetes: No Hx Gastrointestinal Disorders: No Hx Liver Disease: No Hx Genitourinary Disorders: No Hx Sexually Transmitted Disorders: No Hx Renal Disease (ESRD): No Hx Thyroid Disease: No Hx Human Immunodeficiency Virus (HIV): No Hx Hepatitis C: No Hx Depression: Yes (Pt. reports dx of Major Depressive D/O, & Anxiety D/O) Hx Suicide Attempt: No Hx Bipolar Disorder: No Hx Schizophrenia: No - Patient Surgical History Past Surgical History: Yes Hx Neurologic Surgery: No Hx Cataract Extraction: No Hx Cardiac Surgery: No Hx Lung Surgery: No Hx Breast Surgery: No Hx Breast Biopsy: No Hx Abdominal Surgery: Yes (left inguinal hernia repair age 7) Hx Appendectomy: No Hx Cholecystectomy: No Hx Genitourinary Surgery: No Hx Section: No Hx Orthopedic Surgery: No Other Surgical History: left inguinal hernia repair Anesthesia Reaction: No - PPD History Date: 06/25/20 Results: 0 MM - Smoking Cessation Smoking history: Never smoked Have you smoked in the past 12 months: Yes Aproximately how many cigarettes per day: 10 Cigars Per Day: 0 Hx Chewing Tobacco Use: No Initiated information on smoking cessation: Yes 'Breaking Loose' booklet given: 08/10/20 - Substances abused Alcohol Substance route: Oral Frequency: Daily Amount used: 1 pint vodka m+ 2 beers Age of first use: 16 Date of last use: 08/10/20 Heroin Substance route: Inhalation Amount used: 1-2 bags heroin Age of first use: 35 Date of last use: 08/09/20 Crack Substance route: Smoking Frequency: Daily Amount used: $20 Age of first use: 22 Date of last use: 08/09/20 Marijuana/Hashish Substance route: Smoking Frequency: Daily Amount used: $20 Age of first use: 15 Date of last use: 08/10/20 Admission Physical Exam BHS - Physical General Appearance: Yes: Alcohol on Breath, Tremorous, Irritable, Sweating HEENTM: Yes: EOMI, Hearing grossly Normal, Normal ENT Inspection, Normocephalic, Normal Voice, LIVIER, Pharynx Normal, Tm's normal Respiratory: Yes: Chest Non-Tender, Lungs Clear, Normal Breath Sounds, No Respiratory Distress, No Accessory Muscle Use Neck: Yes: No masses,lesions,Nodules, Supple, Trachea in good position Breast: Yes: Within Normal Limits Cardiology: Yes: Regular Rhythm, Regular Rate, S1, S2 Abdominal: Yes: Normal Bowel Sounds, Non Tender, Flat, Soft Back: Yes: Normal Inspection Musculoskeletal: Yes: full range of Motion, Gait Steady, Pelvis Stable Extremities: Yes: Normal Capillary Refill, Normal Inspection, Normal Range of Motion, Non-Tender Neurological: Yes: plastic fabricator II-XII NML intact, Fully Oriented, Alert, Motor Strength 5/5, Normal Mood/Affect, Normal Response Integumentary: Yes: Normal Color, Dry, Warm Lymphatic: Yes: Within Normal Limits - Diagnostic (1) Alcohol dependence with withdrawal Current Visit: Yes Status: Acute (2) Cannabis dependence, uncomplicated Current Visit: Yes Status: Acute (3) Cocaine dependence Current Visit: Yes Status: Acute (4) Nicotine dependence Current Visit: Yes Status: Acute Qualifiers: Nicotine product type: cigarettes Substance use status: in withdrawal Qualified Code(s): F17.213 - Nicotine dependence, cigarettes, with withdrawal (5) Substance-induced sleep disorder Current Visit: Yes Status: Acute (6) Methadone maintenance therapy patient Current Visit: Yes Status: Chronic (7) Opioid dependence on agonist therapy Current Visit: Yes Status: Chronic (8) Weight decreased Current Visit: Yes Status: Chronic (9) Substance induced mood disorder Current Visit: Yes Status: Suspected Cleared for Admission S - Detox or Rehab [facility] Level of Care: Medically Managed Detox Regimen/Protocol: Librium Claeared for Rehab Admission: No Screened but not Admitted - Documentation of Visit Screened but not Admitted: No Breathalyzer - Breathalyzer Breathalyzer: 0.037 Vital Signs - Vital Signs Vital signs refused: No Temperature: 97.7 F Pulse Rate: 65 Respiratory Rate: 12 Blood Pressure: 121/80 BP Location: Left Arm Blood Pressure position: Sitting - Height Height: 5 ft 3 in - Weight Weight: 120 lb Weight measurement method: Standing scale - BMI Body Mass Index (BMI): 21.2 - Bowel Function Bowel Movement: No Urine Drug Screen - Test Device Lot number: [id number] Expiration date: 06/30/22 - Control Is test valid?: Yes - Results Drug screen NEGATIVE: No Urine drug screen results: THC-Marijuana, DANNIE-Cocaine, FEN-Fentanyl, MOP- Opiates, MTD-Methadone, BZO-Benzodiazepines Inpatient Rehab Admission - Rehab Decision to Admit Inpatient rehab admission?: No
[2020-08-10 12:51] VITALS: BMI 21.2
[2020-08-10] MEDS ORDERED: METHOCARBAMOL 500 MG TABLET PO PRN (12:52)
[2020-08-10] MEDS ORDERED: NICOTINE POLACRILEX 2 MG GUM BUC PRN (12:52)
[2020-08-10] MEDS ORDERED: MAG HYDROX/AL HYDROX/SIMETH 30 ML UNIT-DOSE CUP PO PRN (12:52)
[2020-08-10] MEDS ORDERED: BISMUTH SUBSALICYLATE 524 MG/30 ML UD PO PRN (12:52)
[2020-08-10] MEDS ORDERED: MENTHOL/PHENOL 1 EACH UD MM PRN (12:52)
[2020-08-10] MEDS ORDERED: ONDANSETRON *ODT* 4 MG TABLET SL PRN (12:52)
[2020-08-10] MEDS ORDERED: MAGNESIUM HYDROX 2400MG/30ML ORAL SUSPENSION 30 ML CUP PO PRN (12:52)
[2020-08-10] MEDS ORDERED: ACETAMINOPHEN 325 MG TABLET (FP) PO PRN ×2 (12:52)
[2020-08-10] MEDS ORDERED: MAGNESIUM CITRATE 300 ML BOTTLE PO PRN (12:52)
[2020-08-10] MEDS ORDERED: chlordiazePOXIDE HCL 25 MG CAPSULE PO PRN (12:52)
[2020-08-10] MEDS ORDERED: DOXYCYCLINE HYCLATE 100 MG TABLET PO SCH (13:45)
[2020-08-10] MEDS: hydrOXYzine PAMOATE 25 MG CAPSULE (FP) PO SCH ×3 (14:04→22:31)
[2020-08-10] MEDS: chlordiazePOXIDE HCL 25 MG CAPSULE PO SCH ×3 (14:04→22:28)
[2020-08-10] MEDS: PRENATAL VITAMINS W/ FOLIC ACID TABLET (FP) PO SCH (14:05)
[2020-08-10] MEDS: NICOTINE 7 MG/24 HOURS TOPICAL PATCH TD SCH (14:06)
--- OUTSIDE RECORDS SUMMARY | 2020-08-10 14:07 | XMS ---
:1965 Author Organization [facility] Support Name Relationship Address Phone UE, UNEMPLOYED Unavailable Unavailable Unavailable UE Unavailable Unavailable Unavailable SONYIA CHOI [address] [place] [address] SONIYA CHOI [address] [place] [address] Re-disclosure Warning The records that you are [...] is protected by Article 27-F of the [facility] Public Health law. If you continue you may haveaccess to information: Regarding HIV / AIDS; Provided by facilities licensed or operated by the [facility] Office of Mental Health; or Provided by the [facility] Office for People With Developmental Disabilities. If such information is present, then the following [facility] mandated warning applies: This information has been [...] law may result in a fine or group home sentence or both. A general authorization for the release of medical or other information is NOT sufficient authorization for further disclosure. Insurance Providers Payer name Policy type Policy ID Covered Covered constitution party's Policy P lety / Coverage constitution party ID relationship to [facility] [employer] type drake [employer] [id number] SP [id number] T [employer] [id number] SP [id number] T [place] [id number] SP [id number] [employer] Results ID Date Data Source [id number] 06/23/2020 04:50:00 PM EDT [facility] Name Value Range Interpretation Description Data Sup porting Code Source(s) Document(s ) SARS [facility] coronavirus 2 RNA This lab was ordered by [facility] Ac ct Bill Inter and reported by [facility]. Procedure
[2020-08-10] MEDS: IBUPROFEN 400 MG TABLET (FP) PO PRN (14:13)
[2020-08-10 14:56] LABS: HEMATOCRIT 37.6 % (35.4-49); HEMOGLOBIN 12.8 GM/dL (11.7-16.9); MCH 34.2 pg (25.7-33.7); MCHC 34.1 g/dl (32.0-35.9); MEAN CELL VOLUME 100.3 fl (80-96); MEAN PLT VOLUME 8.3 fl (7.5-11.1); PLATELET COUNT 268 K/MM3 (134-434); RBC 3.75 M/mm3 (4.00-5.60); RDW 14.1 % (11.9-15.9); WHITE BLOOD COUNT 8.5 K/mm3 (4.0-10.0)
[2020-08-10 15:12] LABS: ALBUMIN 3.7 g/dl (3.4-5.0); BLOOD UREA NITROGEN 10.8 mg/dL (7-18); CALCIUM 8.8 mg/dL (8.5-10.1); CREATININE 0.8 mg/dL (0.55-1.3); POTASSIUM 3.7 mmol/L (3.5-5.1)
[2020-08-10 15:20] LABS: BILIRUBIN,TOTAL 0.2 mg/dL (0.2-1)
[2020-08-10] MEDS ORDERED: MELATONIN 5 MG TABLETS PO SCH (22:00)
[2020-08-10] MEDS ORDERED: MASKS NR ONE (22:27)
[2020-08-10] MEDS: THIAMINE HCL 100 MG TABLET (FP) PO SCH (22:28)
[2020-08-11] MEDS: METHADONE HCL 40 MG DISPERSABLE TABLET PO SCH (06:49)
[2020-08-11] MEDS: hydrOXYzine PAMOATE 25 MG CAPSULE (FP) PO SCH ×5 (06:49→22:38)
[2020-08-11] MEDS: chlordiazePOXIDE HCL 25 MG CAPSULE PO SCH ×4 (06:49→22:38)
[2020-08-11] MEDS: IBUPROFEN 400 MG TABLET (FP) PO PRN (06:53)
[2020-08-11] MEDS: DOXYCYCLINE HYCLATE 100 MG TABLET PO SCH (07:36)
--- NOTE | 2020-08-11 08:41 | CONSULT ---
[facility] Psychiatric Consult - Data Date of interview: 08/11/20 Admission source: Self-referred Identifying data: Mr Chaudhary is a 54 years old single male, unemployed receiving public assistance, homeless seeking detox treatment for alcohol, opioid, cocaine, benzodiazepine and cannabis Substance Abuse History: Reports history of alcohol, heroin, crack cocaine, xanax and marijuana use. Refer to addiction counselor's summary for further information Medical History: Significant for low back pain, history of surgery for I&D abscess right axila and left inguinal hernia repair at age 7. Patient is on methadone 40 mg.day from [facility]. Smokes 10 cigarettes daily Psychiatric History: Patient is known for multiple previous admissions to this facility. Historical narrative is consistent with previous admission. He reports that his only psychiatric treatment occured in 2012 when he saw a psychiatrist at [facility] in the [place] for depression and anxiety. Reports attending that clinic for 8-9 months till he was closed down due to medicaid fraud. He said that he was prescribed Klonopin and Suboxone. Since he said his psychiatric contacts are limited to admissions to inpatient substance abuse programs. He said that his lat psychiatric contact occured during his most recent admission to this facility. Then he saw automobile and property underwriter and he as prescribed Belsomra 10 mg/hs prn for insomnia. Denies previous psychiaric hospitalizaton or suicidal attempt. At present, denies experiencing depressive and anxiety symptoms, S/H ideations. However, reports sleeping porly. Requests to be ordered Belsomra to which he responded favorably in the past Physical/Sexual Abuse/Trauma History: Denies history of abuse as a child as well as DV relationship as an adult. Additional Comment: Reports history of 4-5 previous arrests including 4 felony convictions. Denies being on parole/probation at present Mental Status Exam - Mental Status Exam Alert and Oriented to: Time, Place, Person Cognitive Function: Fair Patient Appearance: Well Groomed Mood: Hopeful, Euthymic Patient Behavior: Cooperative Speech Pattern: Clear Voice Loudness: Normal Thought Process: Intact, Goal Oriented Thought Disorder: Not Present Hallucinations: Denies Suicidal Ideation: Denies Homicidal Ideation: Denies Insight/Judgement: Poor Sleep: Poorly Appetite: Fair Muscle strength/Tone: Normal Gait/Station: Normal Psychiatric Findings - Problem List ([place] 1, 2,3) (1) Substance induced mood disorder Current Visit: Yes Status: Chronic (2) Substance-induced sleep disorder Current Visit: Yes Status: Acute (3) Alcohol dependence with withdrawal Current Visit: Yes Status: Acute (4) Cocaine dependence Current Visit: Yes Status: Acute (5) Sedative, hypnotic or anxiolytic abuse Current Visit: No Status: Acute (6) Cannabis dependence, uncomplicated Current Visit: Yes Status: Acute (7) Opioid dependence on agonist therapy Current Visit: Yes Status: Chronic (8) Nicotine dependence Current Visit: Yes Status: Acute Qualifiers: Nicotine product type: cigarettes Substance use status: in withdrawal Qualified Code(s): F17.213 - Nicotine dependence, cigarettes, with withdrawal (9) Low back pain Current Visit: No Status: Chronic Qualifiers: Chronicity: acute Back pain laterality: right Sciatica presence: with sciatica Sciatica laterality: sciatica of right side Qualified Code(s): M54.41 - Lumbago with sciatica, right side - Initial Treatment Plan Initial Treatment Plan: 1) Start Belsomra 10 mg po HS prn for insomnia. 2) Continue inpatient detoxification
--- NOTE | 2020-08-11 09:04 | PN ---
S CIWA - CIWA Score Nausea/Vomitin-Mild Nausea/No Vomiting Muscle Tremors: 2 Anxiety: 2 Agitation: 2 Paroxysmal Sweats: 1-Minimal Palms Moist Orientation: 0-Oriented Tacttile Disturbances: 1-Very Mild Itch/Numbness Auditory Disturbances: 0-None Visual Disturbances: 0-None Headache: 2-Mild CIWA-Ar Total Score: 11 S Progress Note (SOAP) Subjective: alert,irritable,anxious,interrupted sleep,tremor,aching pain,pain in the right axilla ,abscess Objective: 08/11/20 15:59 Vital Signs Temperature 98.3 F 08/11/20 12:45 Pulse Rate 63 08/11/20 12:45 Respiratory Rate 17 08/11/20 12:45 Blood Pressure 101/69 08/11/20 12:45 O2 Sat by Pulse Oximetry (%) 99 08/11/20 12:45 Laboratory Last Values WBC 8.5 K/mm3 (4.0-10.0) 08/10/20 12:55 RBC 3.75 M/mm3 (4.00-5.60) L 08/10/20 12:55 Hgb 12.8 GM/dL (11.7-16.9) 08/10/20 12:55 Hct 37.6 % (35.4-49) 08/10/20 12:55 MCV 100.3 fl (80-96) H 08/10/20 12:55 MCH 34.2 pg (25.7-33.7) H 08/10/20 12:55 MCHC 34.1 g/dl (32.0-35.9) 08/10/20 12:55 RDW 14.1 % (11.9-15.9) 08/10/20 12:55 Plt Count 268 K/MM3 (134-434) 08/10/20 12:55 MPV 8.3 fl (7.5-11.1) 08/10/20 12:55 Sodium 138 mmol/L (136-145) 08/10/20 12:55 Potassium 3.7 mmol/L (3.5-5.1) 08/10/20 12:55 Chloride 104 mmol/L (98-107) 08/10/20 12:55 Carbon Dioxide 29 mmol/L (21-32) 08/10/20 12:55 Anion Gap 6 MMOL/L (8-16) L 08/10/20 12:55 BUN 10.8 mg/dL (7-18) 08/10/20 12:55 Creatinine 0.8 mg/dL (0.55-1.3) 08/10/20 12:55 Est GFR (CKD-EPI)AfAm 117.38 08/10/20 12:55 Est GFR (CKD-EPI)NonAf 101.27 08/10/20 12:55 Random Glucose 87 mg/dL (74-106) 08/10/20 12:55 Calcium 8.8 mg/dL (8.5-10.1) 08/10/20 12:55 Total Bilirubin 0.2 mg/dL (0.2-1) 08/10/20 12:55 AST 33 U/L (15-37) 08/10/20 12:55 ALT 26 U/L (13-61) 08/10/20 12:55 Alkaline Phosphatase 107 U/L (45-117) 08/10/20 12:55 Total Protein 8.0 g/dl (6.4-8.2) 08/10/20 12:55 Albumin 3.7 g/dl (3.4-5.0) 08/10/20 12:55 Syphilis Serology Non-reactive (NONREACTIVE) 08/10/20 12:55 COVID-19 (AVERY) Not detected (Not Detected) 08/10/20 14:00 Assessment: 08/11/20 16:00 withdrawal symptom Plan: continue detox librium regimen,continue vibramycin 100 mgs po daily
[2020-08-11] MEDS: PRENATAL VITAMINS W/ FOLIC ACID TABLET (FP) PO SCH (10:41)
[2020-08-11] MEDS: NICOTINE 7 MG/24 HOURS TOPICAL PATCH TD SCH (12:07)
[2020-08-11] MEDS: NICOTINE 14 MG/24 HOURS TOPICAL PATCH TD SCH (14:46)
[2020-08-11] MEDS ORDERED: SUVOREXANT 10 MG TABLET PO PRN (22:00)
[2020-08-11] MEDS: THIAMINE HCL 100 MG TABLET (FP) PO SCH (22:38)
[2020-08-12] MEDS: METHADONE HCL 40 MG DISPERSABLE TABLET PO SCH (06:10)
[2020-08-12] MEDS: hydrOXYzine PAMOATE 25 MG CAPSULE (FP) PO SCH ×5 (06:10→22:06)
[2020-08-12] MEDS: chlordiazePOXIDE HCL 25 MG CAPSULE PO SCH ×4 (06:10→22:06)
[2020-08-12] MEDS: DOXYCYCLINE HYCLATE 100 MG TABLET PO SCH (07:28)
--- NOTE | 2020-08-12 09:52 | PN ---
S CIWA - CIWA Score Nausea/Vomitin Muscle Tremors: 2 Anxiety: 2 Agitation: 2 Paroxysmal Sweats: No Perspiration Orientation: 0-Oriented Tacttile Disturbances: 1-Very Mild Itch/Numbness Auditory Disturbances: 0-None Visual Disturbances: 0-None Headache: 2-Mild CIWA-Ar Total Score: 11 S Progress Note (SOAP) Subjective: alert,irritable,tremor,pain in the body and back,right axilla Objective: 08/12/20 12:22 Vital Signs Temperature 96.7 F L 08/12/20 09:27 Pulse Rate 66 08/12/20 09:27 Respiratory Rate 18 08/12/20 09:27 Blood Pressure 127/72 08/12/20 09:27 O2 Sat by Pulse Oximetry (%) 96 08/12/20 09:27 Laboratory Last Values WBC 8.5 K/mm3 (4.0-10.0) 08/10/20 12:55 RBC 3.75 M/mm3 (4.00-5.60) L 08/10/20 12:55 Hgb 12.8 GM/dL (11.7-16.9) 08/10/20 12:55 Hct 37.6 % (35.4-49) 08/10/20 12:55 MCV 100.3 fl (80-96) H 08/10/20 12:55 MCH 34.2 pg (25.7-33.7) H 08/10/20 12:55 MCHC 34.1 g/dl (32.0-35.9) 08/10/20 12:55 RDW 14.1 % (11.9-15.9) 08/10/20 12:55 Plt Count 268 K/MM3 (134-434) 08/10/20 12:55 MPV 8.3 fl (7.5-11.1) 08/10/20 12:55 Sodium 138 mmol/L (136-145) 08/10/20 12:55 Potassium 3.7 mmol/L (3.5-5.1) 08/10/20 12:55 Chloride 104 mmol/L (98-107) 08/10/20 12:55 Carbon Dioxide 29 mmol/L (21-32) 08/10/20 12:55 Anion Gap 6 MMOL/L (8-16) L 08/10/20 12:55 BUN 10.8 mg/dL (7-18) 08/10/20 12:55 Creatinine 0.8 mg/dL (0.55-1.3) 08/10/20 12:55 Est GFR (CKD-EPI)AfAm 117.38 08/10/20 12:55 Est GFR (CKD-EPI)NonAf 101.27 08/10/20 12:55 Random Glucose 87 mg/dL (74-106) 08/10/20 12:55 Calcium 8.8 mg/dL (8.5-10.1) 08/10/20 12:55 Total Bilirubin 0.2 mg/dL (0.2-1) 08/10/20 12:55 AST 33 U/L (15-37) 08/10/20 12:55 ALT 26 U/L (13-61) 08/10/20 12:55 Alkaline Phosphatase 107 U/L (45-117) 08/10/20 12:55 Total Protein 8.0 g/dl (6.4-8.2) 08/10/20 12:55 Albumin 3.7 g/dl (3.4-5.0) 08/10/20 12:55 Syphilis Serology Non-reactive (NONREACTIVE) 08/10/20 12:55 COVID-19 (AVERY) Not detected (Not Detected) 08/10/20 14:00 Assessment: 08/12/20 12:23 withdrawal symptom Plan: continue detox librium regimen
[2020-08-12] MEDS: PRENATAL VITAMINS W/ FOLIC ACID TABLET (FP) PO SCH (10:05)
[2020-08-12] MEDS: NICOTINE 14 MG/24 HOURS TOPICAL PATCH TD SCH (10:05)
[2020-08-12] MEDS: THIAMINE HCL 100 MG TABLET (FP) PO SCH (22:06)
[2020-08-13] MEDS ORDERED: chlordiazePOXIDE HCL 10 MG CAPSULE PO PRN
[2020-08-13] MEDS: chlordiazePOXIDE HCL 10 MG CAPSULE PO SCH ×2 (06:29→10:55)
[2020-08-13] MEDS: METHADONE HCL 40 MG DISPERSABLE TABLET PO SCH (06:29)
[2020-08-13] MEDS: hydrOXYzine PAMOATE 25 MG CAPSULE (FP) PO SCH ×2 (06:29→11:33)
[2020-08-13] MEDS: DOXYCYCLINE HYCLATE 100 MG TABLET PO SCH (07:14)
[2020-08-13] MEDS ORDERED: MASKS NR ONE (08:44)
[2020-08-13 09:33] VITALS: BP 118/61; PULSE 73; TEMP 96.8
[2020-08-13] MEDS ORDERED: hydrOXYzine PAMOATE 25 MG CAPSULE (FP) PO PRN (10:25)
--- NOTE | 2020-08-13 10:26 | PN ---
S CIWA - CIWA Score Nausea/Vomitin-No Nausea/No Vomiting Muscle Tremors: 3 Anxiety: 2 Agitation: 2 Paroxysmal Sweats: 2 Orientation: 0-Oriented Tacttile Disturbances: 0-None Auditory Disturbances: 0-None Visual Disturbances: 0-None Headache: 0-None Present CIWA-Ar Total Score: 9 BHS Progress Note (SOAP) Subjective: sweats shakes restless Objective: 08/13/20 10:25 Vital Signs Temperature 96.8 F L 08/13/20 08:18 Pulse Rate 73 08/13/20 08:18 Respiratory Rate 18 08/13/20 08:18 Blood Pressure 118/61 08/13/20 08:18 O2 Sat by Pulse Oximetry (%) 95 08/13/20 05:13 Laboratory Tests 08/10/20 08/10/20 08/10/20 12:55 12:55 12:55 WBC 8.5 RBC 3.75 L Hgb 12.8 Hct 37.6 MCV 100.3 H MCH 34.2 H MCHC 34.1 RDW 14.1 Plt Count 268 MPV 8.3 Sodium 138 Potassium 3.7 Chloride 104 Carbon Dioxide 29 Anion Gap 6 L BUN 10.8 Creatinine 0.8 Est GFR (CKD-EPI)AfAm 117.38 Est GFR (CKD-EPI)NonAf 101.27 Random Glucose 87 Calcium 8.8 Total Bilirubin 0.2 AST 33 ALT 26 Alkaline Phosphatase 107 Total Protein 8.0 Albumin 3.7 Syphilis Serology Non-reactive COVID-19 (AVERY) 08/10/20 14:00 WBC RBC Hgb Hct MCV MCH MCHC RDW Plt Count MPV Sodium Potassium Chloride Carbon Dioxide Anion Gap BUN Creatinine Est GFR (CKD-EPI)AfAm Est GFR (CKD-EPI)NonAf Random Glucose Calcium Total Bilirubin AST ALT Alkaline Phosphatase Total Protein Albumin Syphilis Serology COVID-19 (AVERY) Not detected aaox3 ambulating no acute distress Assessment: 08/13/20 10:26 withdrawals Plan: continue detox
[2020-08-13] MEDS: PRENATAL VITAMINS W/ FOLIC ACID TABLET (FP) PO SCH (10:55)
[2020-08-13] MEDS: NICOTINE 14 MG/24 HOURS TOPICAL PATCH TD SCH (10:55)
--- NOTE | 2020-08-13 12:46 | PN ---
[facility] Progress Note Note: pt did not want to continue his detox stating he needs to leave now. Pt refused to elaborate. Pt was explained the reason for him coming to detox and risk of relapse seizures, DT, OD and or loss pt chose to sign out AMA.
--- NOTE | 2020-08-13 12:48 | DS ---
[facility] Detox Discharge Summary Admission Date: 08/10/20 - History Present History: Alcohol Dependence, Cocaine Dependence, Opioid Dependence, MMTP - Physical Exam Results Vital Signs: Vital Signs Temperature 96.8 F L 08/13/20 08:18 Pulse Rate 73 08/13/20 08:18 Respiratory Rate 18 08/13/20 08:18 Blood Pressure 118/61 08/13/20 08:18 O2 Sat by Pulse Oximetry (%) 95 08/13/20 05:13 - Treatment Hospital Course: Detox Protocol Followed, Detoxed Safely, Responded well, Discharged Condition Good, Rehab Referral Accepted - Medication Discharge Medications: Ambulatory Orders Methadone [Dolophine -] 40 mg PO DAILY 08/10/20 - Diagnosis (1) Abscess of axilla, right Status: Acute (2) Alcohol dependence with withdrawal Status: Acute (3) Alcohol dependence, uncomplicated Status: Acute (4) Cannabis dependence, uncomplicated Status: Acute (5) Cocaine dependence Status: Acute (6) Drug-induced mood disorder Status: Acute (7) Nicotine dependence Status: Acute Qualifiers: Nicotine product type: cigarettes Substance use status: in withdrawal Qualified Code(s): F17.213 - Nicotine dependence, cigarettes, with withdrawal (8) Right elbow pain Status: Acute (9) Sedative, hypnotic or anxiolytic abuse Status: Acute (10) Substance induced mood disorder Status: Acute (11) Substance-induced sleep disorder Status: Acute (12) Substance-induced sleep disorder Status: Acute (13) Low back pain Status: Chronic Qualifiers: Chronicity: acute Back pain laterality: right Sciatica presence: with sciatica Sciatica laterality: sciatica of right side Qualified Code(s): M54.41 - Lumbago with sciatica, right side (14) Methadone maintenance therapy patient Status: Chronic (15) Opioid dependence on agonist therapy Status: Chronic (16) Substance induced mood disorder Status: Chronic (17) Weight decreased Status: Chronic - AMA Did Patient Leave Against Medical Advice: Yes
[2020-08-14] MEDS ORDERED: chlordiazePOXIDE HCL 10 MG CAPSULE PO SCH (05:00)
[2020-08-15] MEDS ORDERED: chlordiazePOXIDE HCL 10 MG CAPSULE PO ONE (05:00)
== END 2020-08-13 12:20 | disposition left against medical advice (07) | DRG 770 ==
LOC: YASAS 11:19 → Y6N 12:56
PROVIDERS: ADMIT Allergy & Immunology; ATTEND Allergy & Immunology
PROC: HZ2ZZZZ Detoxification Services for Substance Abuse Treatment (ICD-10-PCS; principal; 2020-08-10)
DX: F10.230 Alcohol dependence with withdrawal, uncomplicated (principal); F11.20 Opioid dependence, uncomplicated; F14.20 Cocaine dependence, uncomplicated; F13.10 Sedative, hypnotic or anxiolytic abuse, uncomplicated; F17.210 Nicotine dependence, cigarettes, uncomplicated; F12.20 Cannabis dependence, uncomplicated; F19.282 Other psychoactive substance dependence with psychoactive substance-induced sleep disorder; F19.24 Other psychoactive substance dependence with psychoactive substance-induced mood disorder; M54.41 Lumbago with sciatica, right side; M25.521 Pain in right elbow; R63.4 Abnormal weight loss; Z68.21 Body mass index [BMI] 21.0-21.9, adult; Z56.0 Unemployment, unspecified; Z59.0 Homelessness; Z98.890 Other specified postprocedural states
CPT/HCPCS: 36415; 80053; 85027; 86780; U0003

== ENCOUNTER 2021-10-25 09:38 | Inpatient (IN) | payer OTHER ==
[2021-10-25] MEDS ORDERED: MAGNESIUM CITRATE 300 ML BOTTLE PO PRN (10:25)
[2021-10-25] MEDS ORDERED: ACETAMINOPHEN 325 MG TABLET (FP) PO PRN ×2 (10:25)
[2021-10-25] MEDS ORDERED: MAG HYDROX/AL HYDROX/SIMETH 30 ML UNIT-DOSE CUP PO PRN (10:25)
[2021-10-25] MEDS ORDERED: ONDANSETRON *ODT* 4 MG TABLET SL PRN (10:25)
[2021-10-25] MEDS ORDERED: IBUPROFEN 400 MG TABLET (FP) PO PRN (10:25)
[2021-10-25] MEDS ORDERED: MENTHOL/PHENOL 1 EACH UD MM PRN (10:25)
[2021-10-25] MEDS ORDERED: MAGNESIUM HYDROX 2400MG/30ML ORAL SUSPENSION 30 ML CUP PO PRN (10:25)
[2021-10-25] MEDS ORDERED: NICOTINE 10 MG CARTRIDGE (INHALER) IH PRN (10:25)
[2021-10-25] MEDS ORDERED: BISMUTH SUBSALICYLATE 262 MG/15 ML BTL PO PRN (10:25)
[2021-10-25] MEDS ORDERED: diazePAM 5 MG TABLET PO PRN (10:25)
[2021-10-25] MEDS: diazePAM 5 MG TABLET PO SCH ×3 (11:06→22:15)
[2021-10-25] MEDS: hydrOXYzine PAMOATE 25 MG CAPSULE (FP) PO SCH ×3 (14:10→22:15)
[2021-10-25 15:09] LABS: HEMATOCRIT 40.2 % (35.4-49); HEMOGLOBIN 13.5 GM/dL (11.7-16.9); MCH 33.3 pg (25.7-33.7); MCHC 33.6 g/dl (32.0-35.9); MEAN PLT VOLUME 8.1 fl (7.5-11.1); PLATELET COUNT 353 10^3/uL (134-434); RBC 4.05 M/mm3 (4.00-5.60); RDW 15.2 % (11.9-15.9)
[2021-10-25 15:58] LABS: ALBUMIN 3.8 g/dl (3.4-5.0); BLOOD UREA NITROGEN 15.5 mg/dL (7-18)
[2021-10-25 16:03] LABS: BILIRUBIN,TOTAL 0.3 mg/dL (0.2-1); TOT PROT 7.5 g/dl (6.4-8.2)
[2021-10-25] MEDS: MELATONIN 5 MG TABLETS PO SCH (22:15)
[2021-10-25] MEDS: THIAMINE HCL 100 MG TABLET (FP) PO SCH (22:15)
[2021-10-26] MEDS: diazePAM 5 MG TABLET PO SCH ×4 (06:12→22:21)
[2021-10-26] MEDS: hydrOXYzine PAMOATE 25 MG CAPSULE (FP) PO SCH ×5 (06:12→22:20)
[2021-10-26] MEDS ORDERED: methaDONE HCL 40 MG DISPERSABLE TABLET PO SCH (10:00)
[2021-10-26] MEDS ORDERED: methaDONE HCL 40 MG DISPERSABLE TABLET PO ONE (10:00)
[2021-10-26] MEDS: PRENATAL VITAMINS W/ FOLIC ACID TABLET (FP) PO SCH (10:10)
[2021-10-26 19:14] LABS: HIV INTERPRETATION NEGATIVE (NEGATIVE)
[2021-10-26] MEDS: MELATONIN 5 MG TABLETS PO SCH (22:20)
[2021-10-26] MEDS: THIAMINE HCL 100 MG TABLET (FP) PO SCH (22:20)
[2021-10-27] MEDS: hydrOXYzine PAMOATE 25 MG CAPSULE (FP) PO SCH ×5 (05:43→22:25)
[2021-10-27] MEDS: diazePAM 5 MG TABLET PO SCH ×3 (05:43→22:26)
[2021-10-27] MEDS: methaDONE HCL 40 MG DISPERSABLE TABLET PO SCH (05:46)
[2021-10-27] MEDS: METHOCARBAMOL 500 MG TABLET PO PRN ×2 (10:25→22:25)
[2021-10-27] MEDS: PRENATAL VITAMINS W/ FOLIC ACID TABLET (FP) PO SCH (10:25)
[2021-10-27] MEDS: THIAMINE HCL 100 MG TABLET (FP) PO SCH (22:24)
[2021-10-27] MEDS: MELATONIN 5 MG TABLETS PO SCH (22:24)
[2021-10-28] MEDS: diazePAM 5 MG TABLET PO SCH ×2 (06:45→17:44)
[2021-10-28] MEDS: hydrOXYzine PAMOATE 25 MG CAPSULE (FP) PO SCH ×5 (06:45→22:28)
[2021-10-28] MEDS: methaDONE HCL 40 MG DISPERSABLE TABLET PO SCH (06:46)
[2021-10-28] MEDS: PRENATAL VITAMINS W/ FOLIC ACID TABLET (FP) PO SCH (10:04)
[2021-10-28] MEDS: MELATONIN 5 MG TABLETS PO SCH (22:26)
[2021-10-28] MEDS: THIAMINE HCL 100 MG TABLET (FP) PO SCH (22:27)
[2021-10-29] MEDS: methaDONE HCL 40 MG DISPERSABLE TABLET PO SCH (05:41)
[2021-10-29] MEDS: hydrOXYzine PAMOATE 25 MG CAPSULE (FP) PO SCH ×2 (05:44→10:47)
[2021-10-29] MEDS ORDERED: diazePAM 5 MG TABLET PO ONE (06:00)
[2021-10-29 09:18] VITALS: BP 103/63; PULSE 81; TEMP 97.4
[2021-10-29] MEDS: PRENATAL VITAMINS W/ FOLIC ACID TABLET (FP) PO SCH (10:47)
== END 2021-10-29 11:34 | disposition other institution (70) | DRG 773 ==
LOC: YASAS 09:38 → Y6N 10:32
PROVIDERS: ADMIT Allergy & Immunology; ATTEND Allergy & Immunology
PROC: HZ2ZZZZ Detoxification Services for Substance Abuse Treatment (ICD-10-PCS; principal; 2021-10-25)
DX: F10.230 Alcohol dependence with withdrawal, uncomplicated (principal); F11.20 Opioid dependence, uncomplicated; F14.20 Cocaine dependence, uncomplicated; F12.20 Cannabis dependence, uncomplicated; F13.10 Sedative, hypnotic or anxiolytic abuse, uncomplicated; F17.213 Nicotine dependence, cigarettes, with withdrawal; F19.282 Other psychoactive substance dependence with psychoactive substance-induced sleep disorder; M54.41 Lumbago with sciatica, right side; G89.29 Other chronic pain; Z59.00 Homelessness unspecified
CPT/HCPCS: 36415; 80053; 85027; 86780; 87389; C9803; U0003; U0005

== ENCOUNTER 2021-10-29 11:41 | Inpatient (IN) | payer OTHER ==
[2021-10-29] MEDS ORDERED: MAGNESIUM HYDROX 2400MG/30ML ORAL SUSPENSION 30 ML CUP PO PRN (12:55)
[2021-10-29] MEDS ORDERED: NICOTINE POLACRILEX 2 MG GUM BUC PRN (12:55)
[2021-10-29] MEDS ORDERED: NICOTINE 10 MG CARTRIDGE (INHALER) IH PRN (12:55)
[2021-10-29] MEDS ORDERED: hydrOXYzine PAMOATE 25 MG CAPSULE (FP) PO PRN (12:55)
[2021-10-29] MEDS ORDERED: LOPERAMIDE HCL 2 MG CAPSULE PO PRN (12:55)
[2021-10-29] MEDS ORDERED: IBUPROFEN 400 MG TABLET (FP) PO PRN (12:55)
[2021-10-29] MEDS ORDERED: MENTHOL/PHENOL 1 EACH UD MM PRN (12:55)
[2021-10-29] MEDS ORDERED: MAGNESIUM CITRATE 300 ML BOTTLE PO PRN (12:55)
[2021-10-29] MEDS ORDERED: ACETAMINOPHEN 325 MG TABLET (FP) PO PRN (12:55)
[2021-10-29] MEDS ORDERED: guaiFENesin 200 MG/10 ML 10 ML UNIT-DOSE CUPS PO PRN (12:55)
[2021-10-29] MEDS ORDERED: P-EPHED 60MG/TRIPROLIDI 2.5MG TABLET PO PRN (12:55)
[2021-10-29] MEDS ORDERED: MAG HYDROX/AL HYDROX/SIMETH 30 ML UNIT-DOSE CUP PO PRN (12:55)
[2021-10-29] MEDS: MELATONIN 5 MG TABLETS PO SCH (21:58)
[2021-10-29] MEDS: THIAMINE HCL 100 MG TABLET (FP) PO SCH (21:58)
[2021-10-30] MEDS: methaDONE HCL 40 MG DISPERSABLE TABLET PO SCH (06:33)
[2021-10-30] MEDS ORDERED: NICOTINE 7 MG/24 HOURS TOPICAL PATCH TD SCH (10:00)
[2021-10-30] MEDS: PRENATAL VITAMINS W/ FOLIC ACID TABLET (FP) PO SCH (11:28)
[2021-10-30] MEDS: THIAMINE HCL 100 MG TABLET (FP) PO SCH (22:48)
[2021-10-30] MEDS: MELATONIN 5 MG TABLETS PO SCH (22:48)
[2021-10-31] MEDS: methaDONE HCL 40 MG DISPERSABLE TABLET PO SCH (05:58)
[2021-10-31] MEDS: PRENATAL VITAMINS W/ FOLIC ACID TABLET (FP) PO SCH (13:52)
[2021-10-31] MEDS: MELATONIN 5 MG TABLETS PO SCH (21:05)
[2021-10-31] MEDS: THIAMINE HCL 100 MG TABLET (FP) PO SCH (21:05)
[2021-11-01] MEDS: methaDONE HCL 40 MG DISPERSABLE TABLET PO SCH (06:12)
[2021-11-01 07:18] VITALS: BP 93/66; PULSE 63; TEMP 98.8
[2021-11-01] MEDS: PRENATAL VITAMINS W/ FOLIC ACID TABLET (FP) PO SCH (09:38)
== END 2021-11-01 10:58 | disposition left against medical advice (07) | DRG 770 ==
LOC: YASAS 11:41 → Y3W 11:42
PROVIDERS: ADMIT Allergy & Immunology; ATTEND Allergy & Immunology
PROC: HZ42ZZZ Group Counseling for Substance Abuse Treatment, Cognitive-Behavioral (ICD-10-PCS; principal; 2021-10-28)
DX: F10.20 Alcohol dependence, uncomplicated (principal); F11.20 Opioid dependence, uncomplicated; F14.20 Cocaine dependence, uncomplicated; F12.20 Cannabis dependence, uncomplicated; F13.10 Sedative, hypnotic or anxiolytic abuse, uncomplicated; F17.210 Nicotine dependence, cigarettes, uncomplicated; M54.59 Other low back pain; G89.29 Other chronic pain; Z56.0 Unemployment, unspecified; Z59.02 Unsheltered homelessness